=== PATIENT | female | born 1965 | race Caucasian/White ===

== ENCOUNTER 2019-02-04 13:22 | Emergency (ER) | payer OTHER ==
[~2019-02-04] VITALS: Ht 170.2 cm; Wt 119.3 kg
--- OUTSIDE RECORDS SUMMARY | 2019-02-04 13:25 | XMS REPORT | Continuity of Care Document ---
Author Author [facility] Interface Address Unknown Phone Unavailable Problems Problem Status Onset Date Classification Date Reported Comments Source PORT FLUSH, NO DOSAGE, NO JCODE /// CPT: Active 10/24/2018 [facility] Malignant neoplasm of endometrium 06/28/2018 01/09/2019 [facility],[id number] Encounter for antineoplastic chemotherapy 05/02/2018 11/12/2018 [facility] PACLITAXEL 350MG, CARBOPLATIN 745MG /// Active 04/26/2018 [facility] PORTACATH PLACEMENT/ENDOMTTRIAL CANCER Active 01/18/2018 [facility] 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 Hyperlipidemia Resolved Problem 01/20/2019 [facility],[id number] Hypertension Resolved Problem 01/20/2019 [facility],[id number] Uterine cancer Resolved Problem 01/20/2019 [facility],[id number] DM type 2, uncontrolled, with ketoacidosis(<span [id number]">Confirmed</span>) Resolved Problem 01/20/2019 [facility],[id number] Fatty liver, not elsewhere classified 01/09/2019 [id number] Hepatomegaly, not elsewhere classified 01/09/2019 [id number] Incisional hernia without obstruction or gangrene 01/09/2019 [id number] Medications Medication Details Route Status Patient Instructions Ordering Provider Order Date Source heparin flush 500 unit, 5 mL, Route: IV, Drug form: SOLN, ONCALL, Start date: 12/19/18 13:00:00 CDT, Duration: 8 hr, Stop date: 12/19/18 20:59:00 CDTNotes: (Same as: Heparin Lock Flush) No Longer Active 12/19/2018 [facility] heparin flush 500 unit, 5 mL, Route: IV, Drug form: SOLN, ONCALL, Start date: 06/01/18 10:00:00 CDT, Duration: 10 hr, Stop date: 06/01/18 19:59:00 CDTNotes: (Same as: Heparin Lock Flush) Inactive 06/01/2018 [facility] magnesium sulfate 2 gm, 50 mL, Route: IVPB, Drug form: INJ, ONCALL, Start date: 06/01/18 10:00:00 CDT, Duration: 10 hr, Stop date: 06/01/18 19:59:00 CDTNotes: WASTE: F/P - Sink; E - Municipal Trash Bin Inactive 06/01/2018 [facility] famotidine 20 mg, 2 mL, Route: IVP, Drug form: INJ, ONCALL, Start date: 06/01/18 8:00:00 CDT, Duration: 10 hr, Stop date: 06/01/18 17:59:00 CDTNotes: (Same as: Pepcid) Can be dilute in 5-10cc NS IVP: Slow IV push over at least 2 minutes. Inactive 06/01/2018 [facility] PACLitaxel + Sodium Chloride 0.9% IV 445 mL 330 mg, 55.01 mL, Route: IV, Drug form: INJ, ONCALL, Start date: 06/01/18 8:00:00 CDT, Duration: 10 hr, Stop date: 06/01/18 17:59:00 CDTNotes: Non-Formulary Drug Use non-PVC bag and tubing set for administration. Administer with a 0.22 micron in-line filter. CHEMOTHERAPY; Infuse entire contents for full dose WASTE: F/P - Black; E - Yellow (Same as: Taxol) Inactive 06/01/2018 [facility] Benadryl 50 mg, 1 mL, Route: IVP, Drug form: INJ, ONCALL, Start date: 06/01/18 8:00:00 CDT, Duration: 10 hr, Stop date: 06/01/18 17:59:00 CDTNotes: (Same as: Benadryl) Inactive 06/01/2018 [facility] Sodium Chloride 0.9% IV 250 mL, IV, 30 ml/hr, ONCALL, Start date: 06/01/18 8:00:00 CDT, Duration: 10, 250 ml Inactive 06/01/2018 [facility] dexamethasone + Sodium Chloride 0.9% IV 45 mL 20 mg, 5 mL, Route: IVPB, Drug form: INJ, ONCALL, Start date: 06/01/18 8:00:00 CDT, Duration: 10 hr, Stop date: 06/01/18 17:59:00 CDT Inactive 06/01/2018 [facility] CARBOplatin + Sodium Chloride 0.9% IV 175 mL 750 mg, 75 mL, Route: IVPB, Drug form: INJ, ONCALL, Start date: 06/01/18 8:00:00 CDT, Duration: 10 hr, Stop date: 06/01/18 17:59:00 CDTNotes: (Same As: Paraplatin) WASTE: F/P - Black; E - Yellow CHEMOTHERAPY; Infuse entire contents for full dose Inactive 06/01/2018 [facility] Zofran 8 mg, 4 mL, Route: IVP, Drug form: INJ, ONCALL, Start date: 06/01/18 8:00:00 CDT, Duration: 10 hr, Stop date: 06/01/18 17:59:00 CDTNotes: (Same as: Zofran) MEDICATION WASTE Product Size: 4 mg Product Wasted: ___ mg Inactive 06/01/2018 [facility] Neulasta 6 mg, 0.6 mL, Route: SUB-Q, Drug form: INJ, ONCALL, Start date: 05/12/18 13:00:00 CDT, Duration: 1 day, Stop date: 05/13/18 12:59:00 CDTNotes: (Same as: Neulasta) Restricted to Outpatient No Longer Active 05/12/2018 [facility] heparin flush 500 unit, 5 mL, Route: IV, Drug form: SOLN, ONCALL, Start date: 05/11/18 12:00:00 CDT, Duration: 10 hr, Stop date: 05/11/18 21:59:00 CDTNotes: (Same as: Heparin Lock Flush) Inactive 05/11/2018 [facility] magnesium sulfate 2 gm, 50 mL, Route: IVPB, Drug form: INJ, ONCALL, Start date: 05/11/18 8:00:00 CDT, Duration: 10 hr, Stop date: 05/11/18 17:59:00 CDTNotes: WASTE: F/P - Sink; E - Municipal Trash Bin Inactive 05/11/2018 [facility] Sodium Chloride 0.9% IV 250 mL, IV, 30 ml/hr, ONCALL, Start date: 05/11/18 8:00:00 CDT, Duration: 10, 250 ml Inactive 05/11/2018 [facility] famotidine 20 mg, 2 mL, Route: IVP, Drug form: INJ, ONCALL, Start date: 05/11/18 8:00:00 CDT, Duration: 10 hr, Stop date: 05/11/18 17:59:00 CDTNotes: (Same as: Pepcid) Can be dilute in 5-10cc NS IVP: Slow IV push over at least 2 minutes. Inactive 05/11/2018 [facility] Benadryl 50 mg, 1 mL, Route: IVP, Drug form: INJ, ONCALL, Start date: 05/11/18 8:00:00 CDT, Duration: 10 hr, Stop date: 05/11/18 17:59:00 CDTNotes: (Same as: Benadryl) Inactive 05/11/2018 [facility] PACLitaxel + Sodium Chloride 0.9% IV 445 mL 330 mg, 55.01 mL, Route: IV, Drug form: INJ, ONCALL, Start date: 05/11/18 8:00:00 CDT, Duration: 10 hr, Stop date: 05/11/18 17:59:00 CDTNotes: Non-Formulary Drug Use non-PVC bag and tubing set for administration. Administer with a 0.22 micron in-line filter. CHEMOTHERAPY; Infuse entire contents for full dose WASTE: F/P - Black; E - Yellow (Same as: Taxol) Inactive 05/11/2018 [facility] Zofran 8 mg, 4 mL, Route: IVP, Drug form: INJ, ONCALL, Start date: 05/11/18 8:00:00 CDT, Duration: 1 day, Stop date: 05/12/18 7:59:00 CDTNotes: (Same as: Zofran) MEDICATION WASTE Product Size: 4 mg Product Wasted: ___ mg Inactive 05/11/2018 [facility] dexamethasone + Sodium Chloride 0.9% IV 45 mL 20 mg, 5 mL, Route: IVPB, Drug form: INJ, ONCALL, Start date: 05/11/18 8:00:00 CDT, Duration: 10 hr, Stop date: 05/11/18 17:59:00 CDT Inactive 05/11/2018 [facility] CARBOplatin + Sodium Chloride 0.9% IV 180 mL 700 mg, 70 mL, Route: IVPB, Drug form: INJ, ONCALL, Start date: 05/11/18 8:00:00 CDT, Duration: 10 hr, Stop date: 05/11/18 17:59:00 CDTNotes: WASTE: F/P - Black; E - Yellow CHEMOTHERAPY. DO NOT use needle or aluminium parts. (Same As: Paraplatin). Infuse entire contents for full dose Inactive 05/11/2018 [facility] Neulasta 6 mg, 0.6 mL, Route: SUB-Q, Drug form: INJ, ONCALL, Start date: 04/21/18 13:00:00 CDT, Duration: 7 day, Stop date: 04/28/18 12:59:00 CDTNotes: (Same as: Neulasta) Restricted to Outpatient No Longer Active 04/21/2018 [facility] famotidine 20 mg, 2 mL, Route: IVP, Drug form: INJ, ONCALL, Start date: 04/20/18 9:00:00 CDT, Duration: 10 hr, Stop date: 04/20/18 18:59:00 CDTNotes: (Same as: Pepcid) Can be dilute in 5-10cc NS IVP: Slow IV push over at least 2 minutes. Inactive 04/20/2018 [facility] Benadryl 50 mg, 1 mL, Route: IVP, Drug form: INJ, ONCALL, Start date: 04/20/18 9:00:00 CDT, Duration: 10 hr, Stop date: 04/20/18 18:59:00 CDTNotes: (Same as: Benadryl) Inactive 04/20/2018 [facility] dexamethasone + Sodium Chloride 0.9% IV 45 mL 20 mg, 5 mL, Route: IVPB, Drug form: INJ, ONCALL, Start date: 04/20/18 9:00:00 CDT, Duration: 10 hr, Stop date: 04/20/18 18:59:00 CDT Inactive 04/20/2018 [facility] heparin flush 500 unit, 5 mL, Route: IV, Drug form: SOLN, ONCALL, Start date: 04/20/18 9:00:00 CDT, Duration: 10 hr, Stop date: 04/20/18 18:59:00 CDTNotes: (Same as: Heparin Lock Flush) No Longer Active 04/20/2018 [facility] CARBOplatin + Sodium Chloride 0.9% IV 175 mL 750 mg, 75 mL, Route: IVPB, Drug form: INJ, ONCALL, Start date: 04/20/18 9:00:00 CDT, Duration: 10 hr, Stop date: 04/20/18 18:59:00 CDTNotes: WASTE: F/P - Black; E - Yellow CHEMOTHERAPY. DO NOT use needle or aluminium parts. (Same As: Paraplatin). Infuse entire contents for full dose Inactive 04/20/2018 [facility] PACLitaxel + Sodium Chloride 0.9% IV 445 mL 330 mg, 55.01 mL, Route: IV, Drug form: INJ, ONCALL, Start date: 04/20/18 9:00:00 CDT, Duration: 10 hr, Stop date: 04/20/18 18:59:00 CDTNotes: Non-Formulary Drug Use non-PVC bag and tubing set for administration. Administer with a 0.22 micron in-line filter. CHEMOTHERAPY; Infuse entire contents for full dose WASTE: F/P - Black; E - Yellow (Same as: Taxol) Inactive 04/20/2018 [facility] magnesium sulfate 2 gm, 50 mL, Route: IVPB, Drug form: INJ, ONCALL, Start date: 04/20/18 9:00:00 CDT, Duration: 10 hr, Stop date: 04/20/18 18:59:00 CDTNotes: WASTE: F/P - Sink; E - Municipal Trash Bin Inactive 04/20/2018 [facility] Zofran + Sodium Chloride 0.9% IV 46 mL 8 mg, 4 mL, Route: IVPB, Drug form: INJ, ONCALL, Start date: 04/20/18 9:00:00 CDT, Duration: 10 hr, Stop date: 04/20/18 18:59:00 CDTNotes: (Same as: Zofran) Inactive 04/20/2018 [facility] Sodium Chloride 0.9% IV 250 mL, IV, 30 ml/hr, ONCALL, Start date: 04/20/18 9:00:00 CDT, Duration: 10, 250 ml Inactive 04/20/2018 [facility] Neulasta 6 mg, 0.6 mL, Route: SUB-Q, Drug form: INJ, ONCALL, Start date: 03/30/18 8:00:00 CDT, Duration: 7 day, Stop date: 04/06/18 7:59:00 CDTNotes: (Same as: Neulasta) Restricted to Outpatient Inactive 03/30/2018 [facility] dexamethasone + Sodium Chloride 0.9% IV 45 mL 20 mg, 5 mL, Route: IVPB, Drug form: INJ, ONCALL, Start date: 03/29/18 8:00:00 CDT, Duration: 10 hr, Stop date: 03/29/18 17:59:00 CDT Inactive 03/29/2018 [facility] heparin flush 500 unit, 5 mL, Route: IV, Drug form: SOLN, ONCALL, Start date: 03/29/18 8:00:00 CDT, Duration: 10 hr, Stop date: 03/29/18 17:59:00 CDTNotes: (Same as: Heparin Lock Flush) Inactive 03/29/2018 [facility] PACLitaxel + Sodium Chloride 0.9% IV 441.65 mL 350 mg, 58.35 mL, Route: IV, Drug form: SOLN, ONCALL, Start date: 03/29/18 8:00:00 CDT, Duration: 10 hr, Stop date: 03/29/18 17:59:00 CDT Inactive 03/29/2018 [facility] CARBOplatin + Sodium Chloride 0.9% IV 175 mL 750 mg, 75 mL, Route: IVPB, Drug form: INJ, ONCALL, Start date: 03/29/18 8:00:00 CDT, Duration: 10 hr, Stop date: 03/29/18 17:59:00 CDTNotes: WASTE: F/P - Black; E - Yellow CHEMOTHERAPY. DO NOT use needle or aluminium parts. (Same As: Paraplatin). Infuse entire contents for full dose Inactive 03/29/2018 [facility] Sodium Chloride 0.9% IV 250 mL, IV, 30 ml/hr, ONCALL, Start date: 03/29/18 8:00:00 CDT, Duration: 10, 250 ml Inactive 03/29/2018 [facility] Zofran + Sodium Chloride 0.9% IV 46 mL 8 mg, 4 mL, Route: IVPB, Drug form: INJ, ONCALL, Start date: 03/29/18 8:00:00 CDT, Duration: 10 hr, Stop date: 03/29/18 17:59:00 CDTNotes: (Same as: Zofran) Inactive 03/29/2018 [facility] famotidine 20 mg, 2 mL, Route: IVP, Drug form: INJ, ONCALL, Start date: 03/29/18 8:00:00 CDT, Duration: 10 hr, Stop date: 03/29/18 17:59:00 CDTNotes: (Same as: Pepcid) Can be dilute in 5-10cc NS IVP: Slow IV push over at least 2 minutes. Inactive 03/29/2018 [facility] Benadryl 50 mg, 1 mL, Route: IVP, Drug form: INJ, ONCALL, Start date: 03/29/18 8:00:00 CDT, Duration: 10 hr, Stop date: 03/29/18 17:59:00 CDTNotes: (Same as: Benadryl) Inactive 03/29/2018 [facility] heparin flush 500 unit, 5 mL, Route: IV, Drug form: SOLN, ONCALL, Start date: 03/10/18 10:00:00 CDT, Duration: 10 hr, Stop date: 03/10/18 19:59:00 CDTNotes: (Same as: Heparin Lock Flush) Inactive 03/10/2018 [facility] Zofran + Sodium Chloride 0.9% IV 46 mL 8 mg, 4 mL, Route: IVPB, Drug form: INJ, ONCALL, Start date: 03/10/18 9:00:00 CDT, Duration: 10 hr, Stop date: 03/10/18 18:59:00 CDTNotes: (Same as: Zofran) Inactive 03/10/2018 [facility] famotidine 20 mg, 2 mL, Route: IVP, Drug form: INJ, ONCALL, Start date: 03/10/18 9:00:00 CDT, Duration: 10 hr, Stop date: 03/10/18 18:59:00 CDTNotes: (Same as: Pepcid) Can be dilute in 5-10cc NS IVP: Slow IV push over at least 2 minutes. Inactive 03/10/2018 [facility] CARBOplatin + Sodium Chloride 0.9% IV 175 mL 750 mg, 75 mL, Route: IVPB, Drug form: INJ, ONCALL, Start date: 03/10/18 9:00:00 CDT, Duration: 10 hr, Stop date: 03/10/18 18:59:00 CDTNotes: WASTE: F/P - Black; E - Yellow CHEMOTHERAPY. DO NOT use needle or aluminium parts. (Same As: Paraplatin). Infuse entire contents for full dose Inactive 03/10/2018 [facility] Benadryl 50 mg, 1 mL, Route: IVP, Drug form: INJ, ONCALL, Start date: 03/10/18 9:00:00 CDT, Duration: 10 hr, Stop date: 03/10/18 18:59:00 CDTNotes: (Same as: Benadryl) Inactive 03/10/2018 [facility] Sodium Chloride 0.9% IV 250 mL, IV, 30 ml/hr, ONCALL, Start date: 03/10/18 9:00:00 CDT, Duration: 10, 250 ml Inactive 03/10/2018 [facility] dexamethasone + Sodium Chloride 0.9% IV 45 mL 20 mg, 5 mL, Route: IVPB, Drug form: INJ, ONCALL, Start date: 03/10/18 9:00:00 CDT, Duration: 10 hr, Stop date: 03/10/18 18:59:00 CDT Inactive 03/10/2018 [facility] PACLitaxel + Sodium Chloride 0.9% IV 445 mL 330 mg, Route: IV, Drug form: INJ, ONCALL, Start date: 03/10/18 9:00:00 CDT, Duration: 10 hr, Stop date: 03/10/18 18:59:00 CDTNotes: Non-Formulary Drug Use non-PVC bag and tubing set for administration. Administer with a 0.22 micron in-line filter. CHEMOTHERAPY; Infuse entire contents for full dose WASTE: F/P - Black; E - Yellow (Same as: Taxol) Inactive 03/10/2018 [facility] dexamethasone + Sodium Chloride 0.9% IV 50 mL 20 mg, 5 mL, Route: IVPB, Drug form: INJ, ONCALL, Start date: 02/16/18 8:00:00 CDT, Duration: 10 hr, Stop date: 02/16/18 17:59:00 CDT Inactive 02/16/2018 [facility] heparin flush 500 unit, 5 mL, Route: IV, Drug form: SOLN, ONCALL, Start date: 02/16/18 8:00:00 CDT, Duration: 10 hr, Stop date: 02/16/18 17:59:00 CDTNotes: (Same as: Heparin Lock Flush) Inactive 02/16/2018 [facility] Sodium Chloride 0.9% IV 250 mL, IV, 30 ml/hr, ONCALL, Start date: 02/16/18 8:00:00 CDT, Duration: 10, 250 ml Inactive 02/16/2018 [facility] Zofran + Sodium Chloride 0.9% IV 50 mL 8 mg, 4 mL, Route: IVPB, ONCALL, Start date: 02/16/18 8:00:00 CDT, Duration: 10 hr, Stop date: 02/16/18 17:59:00 CDTNotes: (Same as: Zofran) MEDICATION WASTE Product Size: 4 mg Product Wasted: ___ mg Inactive 02/16/2018 [facility] famotidine 20 mg, 2 mL, Route: IVP, Drug form: INJ, ONCALL, Start date: 02/16/18 8:00:00 CDT, Duration: 10 hr, Stop date: 02/16/18 17:59:00 CDTNotes: (Same as: Pepcid) Can be dilute in 5-10cc NS IVP: Slow IV push over at least 2 minutes. Inactive 02/16/2018 [facility] Benadryl 50 mg, 1 mL, Route: IVP, Drug form: INJ, ONCALL, Start date: 02/16/18 8:00:00 CDT, Duration: 10 hr, Stop date: 02/16/18 17:59:00 CDTNotes: (Same as: Benadryl) Inactive 02/16/2018 [facility] CARBOplatin + Sodium Chloride 0.9% IV 250 mL 670 mg, 67 mL, Route: IV, Drug form: INJ, ONCALL, Start date: 02/16/18 8:00:00 CDT, Duration: 10 hr, Stop date: 02/16/18 17:59:00 CDTNotes: WASTE: F/P - Black; E - Yellow CHEMOTHERAPY. DO NOT use needle or aluminium parts. (Same As: Paraplatin). Infuse entire contents for full dose Inactive 02/16/2018 [facility] PACLitaxel + Sodium Chloride 0.9% IV 500 mL 390 mg, 65.01 mL, Route: IV, Drug form: INJ, ONCALL, Start date: 02/16/18 8:00:00 CDT, Duration: 10 hr, Stop date: 02/16/18 17:59:00 CDTNotes: Non-Formulary Drug Use non-PVC bag and tubing set for administration. Administer with a 0.22 micron in-line filter. CHEMOTHERAPY; Infuse entire contents for full dose WASTE: F/P - Black; E - Yellow (Same as: Taxol) Inactive 02/16/2018 [facility] celecoxib 200 mg oral capsule 200 mg=1 cap, PO, Q12H, # 40 cap, 0 Refill(s), Pharmacy: [facility] [id number] Active 01/08/[address] [facility] acetaminophen 500 mg oral tablet 1,000 mg=2 tab, PO, Q6H, # 60 tab, 0 Refill(s), Pharmacy: [facility] [id number] Active 01/08/[address] [facility] tramadol hydrochloride 50 MG Oral Tablet 100 mg=2 tab, PO, Q6Hnow, # 50 tab, 0 Refill(s) Active 01/08/[address] [facility] ondansetron 4 mg oral tablet 4 mg=1 tab, PO, Q8H, # 10 tab, 0 Refill(s), Pharmacy: [facility] [id number] Active 01/08/[address] [facility] gabapentin 300 MG Oral Capsule 300 mg=1 cap, PO, Q8H, # 60 cap, 0 Refill(s), Pharmacy: [facility] [id number] Active 01/08/[address] [facility] Docusate Sodium 50 MG / sennosides, SENIOR LIVING 8.6 MG Oral Tablet 2 tab, PO, Q12H, # 60 tab, 2 Refill(s), Pharmacy: [facility] [id number] Active 01/08/[address] [facility] Tramadol 100 mg, 2 tab, Route: PO, Drug form: TAB, Q6Hnow, Dosing Weight 111.818, kg, Start date: 01/07/18 7:00:00 CDT, Duration: 30 day, Stop date: 02/06/18 1:00:00 CDTNotes: Not to exceed 400mg/day. (Same As: Ultram) No Longer Active 01/07/[address] [facility] Oxycodone Hydrochloride 5 MG Oral Tablet 5 mg, 1 tab, Route: PO, Drug form: TAB, Q4H, Dosing Weight 111.818, kg, PRN Pain Score 4-6, Start date: 01/07/18 6:26:00 CDT, Duration: 30 day, Stop date: 02/06/18 6:25:00 CDTNotes: (Same as: Roxicodone) No Longer Active 01/07/[address] [facility] remove patch 1 patch, Route: TOP, Drug form: ERFILM, ONCE, Start date: 01/06/18 11:44:00 CDT, Stop date: 01/06/18 11:44:00 CDTNotes: Remove old patch before application of new patch. Inactive 01/06/[address] [facility] simvastatin 10 mg oral tablet 10 mg=1 tab, PO, Bedtime, 0 Refill(s) Active 01/06/[address] [facility] MAGNESIUM GLUCONATE 500 mg, 1 tab, Route: PO, Drug form: TAB, BID, Dosing Weight 111.818, kg, Start date: 01/06/18 9:00:00 CDT, Duration: 30 day, Stop date: 02/04/18 17:00:00 CDTNotes: (Same as: Almora) Magnesium gluconate 500mg=27mg elemental magnesium Dose= mg magnesium gluconate(___mg elemental magnesium) No Longer Active 01/06/[address] [facility] NIFEdipine 30 mg oral tablet, extended release 30 mg, 1 tab, Route: PO, Drug form: ERTAB, Daily, Dosing Weight 111.818, kg, Start date: 01/06/18 9:00:00 CDT, Duration: 30 day, Stop date: 02/04/18 9:00:00 CDTNotes: (Same as: Adalat CC, Procardia XL) Give on empty stomach. Take 1 hour before or 2 hours after meal; "Avoid grapefruit and grapefruit juice". Do not crush No Longer Active 01/06/[address] [facility] Insulin Lispro 4 unit, 0.04 mL, Route: SUB-Q, Drug form: SOLN, Bedtime, Dosing Weight 111.818, kg, PRN Blood Glucose Results, Start date: 01/06/18 3:06:00 CDT, Duration: 30 day, Stop date: 02/05/18 3:05:00 CDTNotes: (Same as: Humalog ) Roll in palms of hands gently; Do not shake `vigorously. "Single Patient Use Only " WASTE: F/P - Black; E - Municipal Trash Bin Stable for 28 days at room temperature. Expires in days from Date No Longer Active 01/06/[address] [facility] Insulin Lispro 10 unit, 0.1 mL, Route: SUB-Q, Drug form: SOLN, TID-Before Meals, Dosing Weight 111.818, kg, PRN Blood Glucose Results, Start date: 01/06/18 3:05:00 CDT, Duration: 30 day, Stop date: 02/05/18 3:04:00 CDTNotes: (Same as: Humalog ) Roll in palms of hands gently; Do not shake `vigorously. "Single Patient Use Only " WASTE: F/P - Black; E - Municipal Trash Bin Stable for 28 days at room temperature. Expires in days from Date No Longer Active 01/06/[address] [facility] Glucagon 1 mg, Route: IM, Drug form: PDR/INJ, PRN, Dosing Weight 111.818, kg, PRN Blood Glucose Results, Start date: 01/06/18 3:05:00 CDT, Duration: 30 day, Stop date: 02/05/18 3:04:00 CDT No Longer Active 01/06/[address] [facility] Dextrose 50% Syringe 25 gm, 50 mL, Route: IVP, Drug Form: INJ, Dosing Weight 111.818, kg, PRN, PRN Blood Glucose Results, Start date: 01/06/18 3:05:00 CDT, Duration: 30 day, Stop date: 02/05/18 3:04:00 CDT No Longer Active 01/06/[address] [facility] Zofran 4 mg, 1 tab, Route: PO, Drug form: TAB, Q8H, Dosing Weight 111.818, kg, Start date: 01/06/18 0:00:00 CDT, Duration: 30 day, Stop date: 02/04/18 16:00:00 CDTNotes: (Same as: Zofran) No Longer Active 01/06/[address] [facility] Docusate Sodium 50 MG / sennosides, [facility]ING 8.6 MG Oral Tablet 2 tab, Route: PO, Drug Form: TAB, Dosing Weight 111.818, kg, Q12H, Start date: 01/05/18 23:15:00 CDT, Duration: 30 day, Stop date: 02/04/18 21:00:00 CDTNotes: (Same as Senokot-S) Equiv. to Madai-Colace. No Longer Active 01/06/[address] [facility] gabapentin 300 mg, 1 cap, Route: PO, Drug form: CAP, Q8H, Dosing Weight 111.818, kg, Start date: 01/05/18 23:14:00 CDT, Duration: 30 day, Stop date: 02/04/18 16:00:00 CDTNotes: (Same as: Neurontin) No Longer Active 01/06/[address] [facility] celecoxib 200 mg, 1 cap, Route: PO, Drug form: CAP, Q12H, Dosing Weight 111.818, kg, Start date: 01/05/18 23:14:00 CDT, Duration: 30 day, Stop date: 02/04/18 21:00:00 CDTNotes: NSAID. Please check indication. Not for seizure. (Same As: CeleBREX) No Longer Active 01/06/[address] [facility] Acetaminophen 1,000 mg, 2 tab, Route: PO, Drug form: TAB, Q6H, Dosing Weight 111.818, kg, Start date: 01/05/18 23:13:00 CDT, Duration: 30 day, Stop date: 02/04/18 18:00:00 CDTNotes: Max acetaminophen 4000 mg/day (4 gm/day). (Same as: Tylenol Extra Strength) No Longer Active 01/06/[address] [facility] Ondansetron 4 mg, Route: IVP, ONCE, Dosing Weight 111.818, kg, PRN Nausea & Vomiting, Start date: 01/05/18 21:07:00 CDT Inactive 01/06/[address] [facility] Flumazenil 0.2 mg, Route: IVP, PRN, Dosing Weight 111.818, kg, PRN Benzodiazepine Reversal, Initial dose, Start date: 01/05/18 21:07:00 CDT, Duration: 30 day, Stop date: 02/04/18 21:06:00 CDT Inactive 01/06/[address] [facility] Naloxone 0.4 mg, Route: IVP, Q2MIN, Dosing Weight 111.818, kg, PRN Narcotic Reversal, Start date: 01/05/18 21:07:00 CDT, Duration: 8 doses or times, Stop date: Limited # of times Inactive 01/06/[address] [facility] Acetaminophen 1,000 mg, Route: IVPB, Drug form: INJ, ONCE, Dosing Weight 111.818, kg, PRN Pain Score 1-3, Start date: 01/05/18 21:07:00 CDT Inactive 01/06/[address] [facility] Oxycodone 5 mg, Route: PO, Drug form: TAB, Q4H, Dosing Weight 111.818, kg, PRN Pain Score 4-6, Start date: 01/05/18 21:07:00 CDT, Duration: 30 day, Stop date: 02/04/18 21:06:00 CDT Inactive 01/06/[address] [facility] Hydromorphone 0.5 mg, Route: IVP, Q5Min, Dosing Weight 111.818, kg, PRN Pain Score 7-10, Start date: 01/05/18 21:07:00 CDT, Duration: 4 doses or times, Stop date: Limited # of times Inactive 01/06/[address] 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 midazolam (ANES) Route: IV, Drug form: SOLN, ONCE, Stop date: 01/05/18 20:34:00 CDT Inactive 01/06/[address] [facility] Simethicone 160 mg, 2 tab, Route: CHEW, Drug form: CHEWTAB, QID, Dosing Weight 111.818, kg, PRN Gas, Start date: 01/05/18 20:11:00 CDT, Duration: 30 day, Stop date: 02/04/18 20:10:00 CDTNotes: (Same as: Mylicon) No Longer Active 01/06/[address] [facility] Reglan 10 mg, 1 tab, Route: PO, Drug form: TAB, Q6H, Dosing Weight 111.818, kg, PRN Nausea, Start date: 01/05/18 20:11:00 CDT, Duration: 30 day, Stop date: 02/04/18 20:10:00 CDTNotes: (Same as: Reglan) Take 30 min before meals No Longer Active 01/06/[address] [facility] Zofran 4 mg, 1 tab, Route: PO, Drug form: TAB, Q6H, Dosing Weight 111.818, kg, PRN Nausea, Start date: 01/05/18 20:11:00 CDT, Duration: 30 day, Stop date: 02/04/18 20:10:00 CDTNotes: (Same as: Zofran) Inactive 01/06/[address] [facility] neostigmine (ANES) Route: IV, Drug form: INJ, ONCE, Stop date: 01/05/18 20:04:00 CDT Inactive 01/06/[address] [facility] glycopyrrolate (ANES) Route: IV, Drug form: INJ, ONCE, Stop date: 01/05/18 20:04:00 CDT Inactive 01/06/[address] [facility] Calcium Chloride 0.0014 MEQ/ML / Potassium Chloride 0.004 MEQ/ML / Sodium Chloride 0.103 MEQ/ML / Sodium Lactate 0.028 MEQ/ML Injectable Solution 1,000 mL, Rate: 100 ml/hr, Infuse over: 10 hr, Route: IV, Dosing Weight 111.818 kg, Total Volume: 1,000, Start date: 01/05/18 20:01:00 CDT, Duration: 30 day, Stop date: 02/04/18 20:00:00 CDT, 2.35, m2 No Longer Active 01/06/[address] [facility] ePHEDrine (ANES) Route: IV, Drug form: INJ, ONCE, Stop date: 01/05/18 19:39:00 CDT Inactive 01/06/[address] [facility] propofol (ANES) Route: IV, Drug form: INJ, ONCE, Stop date: 01/05/18 18:39:00 CDT Inactive 01/05/[address] [facility] ceFAZolin (ANES) Route: IV, Drug form: INJ, ONCE, Stop date: 01/05/18 18:29:00 CDT Inactive 01/05/[address] [facility] acetaminophen (ANES) Route: IV, Drug form: INJ, ONCE, Stop date: 01/05/18 18:29:00 CDT Inactive 01/05/[address] [facility] ondansetron (ANES) Route: IV, Drug form: INJ, ONCE, Stop date: 01/05/18 18:29:00 CDT Inactive 01/05/[address] [facility] dexamethasone (ANES) Route: IV, Drug form: INJ, ONCE, Stop date: 01/05/18 17:49:00 CDT Inactive 01/05/[address] [facility] bupivacaine (ANES) Route: EPIDURAL, Drug Form: INJ, ONCE, Stop date: 01/05/18 17:14:00 CDT Inactive 01/05/[address] [facility] rocuronium (ANES) Route: IV, Drug form: INJ, ONCE, Stop date: 01/05/18 17:09:00 CDT Inactive 01/05/[address] [facility] fentaNYL (ANES) Route: IV, Drug form: INJ, ONCE, Stop date: 01/05/18 16:54:00 CDT Inactive 01/05/[address] [facility] bupivacaine (ANES) Route: EPIDURAL, Drug Form: INJ, ONCE, Stop date: 01/05/18 16:54:00 CDT Inactive 01/05/[address] [facility] Sodium Chloride 0.9% IV (ANES) 1000 mL Route: IV, Total Volume: 1,000, Start date: 01/05/18 16:30:00 CDT, Stop date: 01/05/18 17:30:00 CDT Inactive 01/05/[address] [facility] ketAMINE (ANES) Route: IV, Drug form: INJ, ONCE, Stop date: 01/05/18 16:11:00 CDT Inactive 01/05/[address] [facility] metroNIDAZOLE (ANES) Route: IV, Drug form: INJ, ONCE, Stop date: 01/05/18 16:01:00 CDT Inactive 01/05/[address] [facility] ceFAZolin (ANES) Route: IV, Drug form: INJ, ONCE, Stop date: 01/05/18 15:56:00 CDT Inactive 01/05/[address] [facility] propofol (ANES) Route: IV, Drug form: INJ, ONCE, Stop date: 01/05/18 15:41:00 CDT Inactive 01/05/[address] [facility] lidocaine (ANES) Route: IV, Drug form: INJ, ONCE, Stop date: 01/05/18 15:41:00 CDT Inactive 01/05/[address] [facility] rocuronium (ANES) Route: IV, Drug form: INJ, ONCE, Stop date: 01/05/18 15:41:00 CDT Inactive 01/05/[address] [facility] fentaNYL (ANES) Route: IV, Drug form: INJ, ONCE, Stop date: 01/05/18 15:41:00 CDT Inactive 01/05/[address] [facility] midazolam (ANES) Route: IV, Drug form: SOLN, ONCE, Stop date: 01/05/18 15:41:00 CDT Inactive 01/05/[address] [facility] dexmedetomidine (ANES) 200 microgram Route: IV, Drug form: INJ, Start date: 01/05/18 15:40:00 CDT, Stop date: 01/05/18 16:40:00 CDT Inactive 01/05/[address] [facility] Lactated Ringers Injection IV (ANES) 1000 mL Route: IV, Total Volume: 1,000, Start date: 01/05/18 15:40:00 CDT, Stop date: 01/05/18 16:40:00 CDT Inactive 01/05/[address] [facility] ketAMINE (ANES) 10 mg Route: IV, Drug form: INJ, Start date: 01/05/18 15:40:00 CDT, Stop date: 01/05/18 16:40:00 CDT Inactive 01/05/[address] [facility] Naloxone 0.1 mg, 0.25 mL, Route: IVP, Drug form: INJ, Q2MIN, Dosing Weight 111.818, kg, PRN Narcotic Reversal, Start date: 01/05/18 15:36:00 CDT, Duration: 8 doses or times, Stop date: 02/04/18 0:00:00 CDTNotes: Same as Narcan No Longer Active 01/05/[address] [facility] Fentanyl / ropivacaine Route: EPIDURAL, Continuous Rate: 8, ml/hr, Infusion site: Thoracic, TENSIONING MACHINE OPERATOR dose 3 mL, TENSIONING MACHINE OPERATOR dose lockout: 30 minutes, 1 Hour limit: 14 mL, 200, mL, Start date: 01/05/18 15:36:00 CDT, Duration: 30, day, Drug Form: INJ, Total volume: 200, mL, kg, Stop date:...Notes: (Same as Naropin-Sublimaze) No Longer Active 01/05/[address] [facility] Tramadol 100 mg, 2 tab, Route: PO, Drug form: TAB, Q6Hnow, Dosing Weight 111.818, kg, PRN Pain Score 7-10, Start date: 01/05/18 15:34:00 CDT, Duration: 30 day, Stop date: 02/04/18 15:33:00 CDTNotes: Not to exceed 400mg/day. (Same As: Ultram) No Longer Active 01/05/[address] [facility] Lactated Ringers Injection IV (ANES) 1000 mL Route: IV, Total Volume: 1,000, Start date: 01/05/18 15:04:00 CDT, Stop date: 01/05/18 16:04:00 CDT Inactive 01/05/[address] [facility] heparin 5,000 unit, 1 mL, Route: SUB-Q, Drug form: INJ, ONCE, kg, Start date: 01/05/18 5:00:00 CDT, Stop date: 01/05/18 5:00:00 CDTNotes: porcine heparin Inactive 01/05/[address] [facility] 72 HR Scopolamine 0.0139 MG/HR Transdermal Patch 1 patch, Route: TOP, Drug Form: ERFILM, kg, PRE OP, Start date: 01/05/18 5:00:00 CDT, Duration: 30 day, Stop date: 02/04/18 4:59:00 CDTNotes: Change patch every 72 hours (Same as: Transderm-Scop) Inactive 01/05/[address] [facility] Celebrex 400 mg, 2 cap, Route: PO, Drug form: CAP, ONCE, kg, Start date: 01/05/18 5:00:00 CDT, Stop date: 01/05/18 5:00:00 CDTNotes: NSAID. Please check indication. Not for seizure. (Same As: CeleBREX) Inactive 01/05/[address] [facility] gabapentin 300 MG Oral Capsule 300 mg, 1 cap, Route: PO, Drug form: CAP, ONCE, kg, Start date: 01/05/18 5:00:00 CDT, Stop date: 01/05/18 5:00:00 CDTNotes: (Same as: Neurontin) Inactive 01/05/[address] [facility] Simvastatin 10 mg, PO, Bedtime No Longer Active 01/03/[address] [facility] Aleve 220 mg, PO, PRN Active 01/03/[address] [facility] Vitamin C 500 mg, PO, BID Active 01/03/[address] [facility] ferrous sulfate 65 mg, PO, BID Active 01/03/[address] [facility] NIFEdipine 30 mg oral tablet, extended release 30 mg=1 tab, PO, Daily Active 01/03/[address] [facility] Allergies, Adverse Reactions, Alerts Substance Category Reaction Severity Reaction type Status Date Reported Comments Source No Known Medication Allergies Assertion Drug allergy [facility] Immunizations Immunization Date Given Site Status Last Updated Comments Source Results Order Name Results Value Reference Range Date Interpretation Comments Source Breast Mammo [facility] [place] [facility] incl CAD [place] Breast Mammo [facility] [place] [facility] incl CAD MA AMENDMENT: 01/12/2019 Ashlee Austin M.D. The purpose of this addendum is to document that prior mammogram has now been compared. The 8 mm nodule in the upper outer left breast, 13 cmfn and the 9 mm asymmetry in the lower left breast, 10 cmfn are stable when compared to prior exam dated 10/12/2017 Mammogram - [facility] Amended BI-RADS: 2 Benign letter sent: BI-RADS 1/2 BILATERAL DIGITAL SCREENING MAMMOGRAM 3D/2D WITH CAD: 12/28/2018 CLINICAL: /Z12.31 Encounter For Screening Mammogram For Malignant Neoplasm Of Breast. Current study was evaluated with a Computer Aided Detection (CAD) system. COMPARISON:No prior exams were available for comparison. TECHNIQUE: Digital Breast Tomosynthesis was performed and utilized for Interpretation. Current study was also evaluated with a Computer Aided Detection (CAD) system. FINDINGS: There are scattered fibroglandular densities in both breasts. There is an 8 mm nodule in the upper outer left breast, 13 cmfn, possibly an intramammary lymph node. There is an additional 9 mm asymmetry in the lower left breast, 10 cmfn. No significant masses, calcifications, or other findings are seen in the right breast. IMPRESSION: INCOMPLETE: NEEDS ADDITIONAL IMAGING EVALUATION 1. An 8 mm nodule in the upper outer left breast, 13 cmfn, possibly an intramammary lymph node. 2. A 9 mm asymmetry in the lower left breast, 10 cmfn. Diagnostic left mammogram and ultrasound is recommended. Diagnostic views to include LM comboHD. RECOMMENDATION: - DIAGNOSTIC LEFT MAMMOGRAM AND POSSIBLE ULTRASOUND. Please note, prior outside facility mammograms were requested but not received. Comparison to prior mammograms would increase the sensitivity of this mammogram and if received, an addendum will be issued. This exam was interpreted at [id number] for [facility]. Ashlee Austin M.D. dh/:01/08/2019 12:19:34 Triage Technician(s): Angelica Orellana [facility] letter sent: BI-RADS 0 Mammogram BI-RADS: 0 Indeterminate 12/28/2018 - - Read by: Ashlee Austin MD Dictated Date/time: 01/12/19 11:38 Electronically Signed by: Ashlee Austin MD 01/12/19 11:38 FINAL REPORT - - Read by: Ashlee Austin MD Dictated Date/time: 01/08/19 12:19 Electronically Signed by: Ashlee Austin MD 01/08/19 12:19 FINAL REPORT [facility] TUMOR MARKERS CA 125 4.5 unit/mL 0.0 - 35.0 12/20/2018 [facility] TUMOR MARKERS CA 125 2.2 unit/mL 0.0 - 35.0 09/20/2018 [facility] Chest/Abdomen/Pelvis w IV contrast CT Chest/Abdomen/Pelvis w IV contrast CT CT THORAX/ABDOMEN/PELVIS WITH IV CONTRAST HISTORY: C54.1 Malignant neoplasm of endometrium; 52-year-old female reports history of diagnosis of endometrial malignancy in October 2017 TECHNIQUE: Multiple contiguous axial images of the chest and abdomen and pelvis were performed. Coronal and sagittal reformatted images were obtained. IV CONTRAST: 100cc Omnipaque. GI CONTRAST: Yes. CT imaging performed at this location utilizes radiation dose optimization techniques which include one or more of the following: -Automated exposure control -Adjustment of the mA and/or kV according to patient size -Use of iterative reconstruction technique CT Radiation Dose DLP 1319.6 mGy-cm COMPARISON: CT thorax/abdomen/pelvis dated 01/04/2018 CHEST: LUNGS AND PLEURA: The lungs are clear. No evidence of pulmonary metastatic disease. No pleural effusion. No pneumothorax. MEDIASTINUM: A right IJ central catheter has been placed since the prior study in satisfactory positioning. No mediastinal mass, adenopathy, or fluid collection. Heart size normal. No pericardial effusion. BASE OF NECK, SOFT TISSUES AND BONES: There is an unchanged 0.4 cm nodule in the right thyroid gland for which no follow-up is recommended. No supraclavicular or axillary lymphadenopathy. No evidence of osseous metastatic disease in the chest. ABDOMEN AND PELVIS: LIVER, BILIARY, PANCREAS, SPLEEN, AND ADRENALS: Hepatomegaly and hepatic steatosis are again noted. No focal liver lesion. No calcified gallstones. No biliary dilation. Normal spleen. Normal pancreas. Normal adrenal glands. GENITOURINARY: Normal kidneys. No hydronephrosis. Since the prior study, hysterectomy has been performed. The large complex cystic mass of the right adnexa has been resected. STOMACH AND BOWEL AND APPENDIX: The stomach and duodenum are normal. Normal small bowel. No small bowel obstruction. Normal rectum. Normal colon. Normal appendix. OTHER SOFT TISSUES, VESSELS, AND BONES: There is a small supraumbilical incisional hernia which is new since the prior study and contains a short loop of abnormal-appearing small bowel. This hernia measures 2.5 cm transverse, 3 cm craniocaudad, and 1 cm AP and demonstrates a wide neck. There is trace fluid within the laparotomy incision within the infraumbilical midline pannus, likely a small expected postoperative seroma. No ascites or lymphadenopathy. No CT evidence of osseous metastatic disease in the abdomen or pelvis. Bilateral chronic L5 pars defects are noted (spondylolysis). Mild right iliopsoas bursitis is noted, similar to the prior. IMPRESSION: 1. Changes of hysterectomy and resection of the large complex cystic mass of the right adnexa since the prior study. 2. No evidence of metastatic disease in the chest, abdomen, or pelvis. 3. Development of small supraumbilical incisional hernia which contains a short loop of normal-appearing small bowel. 4. Trace fluid within the laparotomy incision within the infraumbilical pannus, likely small expected postoperative seroma. 5. Hepatomegaly, hepatic steatosis, L5 spondylolysis. SL: [id number] 06/22/2018 - - Read by: Drew Cabello MD Dictated Date/time: 06/22/18 15:09 Electronically Signed by: Drew Cabello MD 06/22/18 15:32 FINAL REPORT [facility] CHEM PANEL Magnesium Lvl 1.8 mg/dL 1.8 - 2.4 05/30/2018 [facility] CHEM PANEL A/G Ratio 1.3 0.7 - 1.6 05/30/2018 [facility] CHEM PANEL Globulin 3.2 g/dL 2.7 - 4.2 05/30/2018 [facility] CHEM PANEL B/C Ratio 22 6 - 25 05/30/2018 [facility] CHEM PANEL AGAP 19.0 meq/L 10.0 - 20.0 05/30/2018 [facility] CHEM PANEL eGFR 103 mL/min/1.73m2 05/30/2018 Result Comment: The eGFR is calculated using the CKD-EPI formula. In most young, healthy individuals the eGFR will be >90 mL/min/1.73m2. The eGFR declines with age. An eGFR of 60-89 may be normal in some populations, particularly the elderly, for whom the CKD-EPI formula has not been extensively validated. Use of the eGFR is not recommended in the following populations: Individuals with unstable creatinine concentrations, including patients and those with serious co-morbid conditions. Patients with extremes in muscle mass or diet. The data above are obtained from the National Kidney Disease Education Program (NKDEP) which additionally recommends that when the eGFR is used in patients with extremes of body mass index for purposes of drug dosing, the eGFR should be multiplied by the estimated BMI. [facility] CHEM PANEL Bili Total 0.4 mg/dL 0.2 - 1.3 05/30/2018 [facility] CHEM PANEL Alk Phos 71 unit/L 39 - 136 05/30/2018 [facility] CHEM PANEL AST 41 unit/L 0 - 37 05/30/2018 [facility] CHEM PANEL Albumin Lvl 4.1 g/dL 3.5 - 5.0 05/30/2018 [facility] CHEM PANEL Calcium Lvl 9.5 mg/dL 8.5 - 10.5 05/30/2018 [facility] CHEM PANEL ALT 74 unit/L 0 - 65 05/30/2018 [facility] CHEM PANEL Total Protein 7.3 g/dL 6.4 - 8.4 05/30/2018 [facility] CHEM PANEL CO2 23 meq/L 24 - 32 05/30/2018 [facility] CHEM PANEL Chloride Lvl 105 meq/L 95 - 109 05/30/2018 [facility] CHEM PANEL Potassium Lvl 4.0 meq/L 3.5 - 5.1 05/30/2018 [facility] CHEM PANEL Sodium Lvl 143 meq/L 135 - 145 05/30/2018 [facility] CHEM PANEL Creatinine Lvl 0.67 mg/dL 0.50 - 1.40 05/30/2018 [facility] CHEM PANEL BUN 15 mg/dL 7 - 22 05/30/2018 [facility] CHEM PANEL Glucose Lvl 101 mg/dL 70 - 99 05/30/2018 [facility] HEMATOLOGY RDW 21.2 % 11.5 - 14.5 05/30/2018 [facility] HEMATOLOGY Platelet 257 K/CMM 133 - 450 05/30/2018 [facility] HEMATOLOGY MPV 8.1 fL 7.4 - 10.4 05/30/2018 [facility] MCHC 33.7 g/dL 32.0 - 36.0 05/30/2018 [facility] HEMATOLOGY RBC 4.27 M/CMM 4.20 - 5.40 05/30/2018 [facility] HEMATOLOGY WBC 3.3 K/CMM 3.7 - 10.4 05/30/2018 [facility] Hct 37.4 % 36.0 - 48.0 05/30/2018 [facility] MCV 87.6 fL 80.0 - 98.0 05/30/2018 [facility] MCH 29.6 pg 27.0 - 31.0 05/30/2018 [facility] Hgb 12.6 g/dL 12.0 - 16.0 05/30/2018 [facility] HEMATOLOGY Monocytes # 0.3 K/CMM 0.0 - 0.8 05/30/2018 [facility] HEMATOLOGY Lymphocytes # 1.0 K/CMM 1.0 - 5.5 05/30/2018 [facility] HEMATOLOGY Basophils 0.7 % 0.0 - 1.0 05/30/2018 [facility] HEMATOLOGY Neutrophils # 1.9 K/CMM 1.5 - 8.1 05/30/2018 [facility] HEMATOLOGY Eosinophils 0.8 % 0.0 - 4.0 05/30/2018 [facility] HEMATOLOGY Monocytes 9.8 % 2.0 - 12.0 05/30/2018 [facility] HEMATOLOGY Lymphocytes 30.0 % 20.0 - 40.0 05/30/2018 [facility] HEMATOLOGY Segs 58.7 % 45.0 - 75.0 05/30/2018 [facility] TUMOR MARKERS CA 125 2.8 unit/mL 0.0 - 35.0 05/30/2018 [facility] CHEM PANEL Magnesium Lvl 1.7 mg/dL 1.8 - 2.4 05/09/2018 [facility] CHEM PANEL eGFR 103 mL/min/1.73m2 05/09/2018 Result Comment: The eGFR is calculated using the CKD-EPI formula. In most young, healthy individuals the eGFR will be >90 mL/min/1.73m2. The eGFR declines with age. An eGFR of 60-89 may be normal in some populations, particularly the elderly, for whom the CKD-EPI formula has not been extensively validated. Use of the eGFR is not recommended in the following populations: Individuals with unstable creatinine concentrations, including patients and those with serious co-morbid conditions. Patients with extremes in muscle mass or diet. The data above are obtained from the National Kidney Disease Education Program (NKDEP) which additionally recommends that when the eGFR is used in patients with extremes of body mass index for purposes of drug dosing, the eGFR should be multiplied by the estimated BMI. [facility] CHEM PANEL Total Protein 7.1 g/dL 6.4 - 8.4 05/09/2018 [facility] CHEM PANEL Calcium Lvl 8.8 mg/dL 8.5 - 10.5 05/09/2018 [facility] CHEM PANEL Albumin Lvl 3.9 g/dL 3.5 - 5.0 05/09/2018 [facility] CHEM PANEL ALT 62 unit/L 0 - 65 05/09/2018 [facility] CHEM PANEL Alk Phos 53 unit/L 39 - 136 05/09/2018 [facility] CHEM PANEL AST 39 unit/L 0 - 37 05/09/2018 [facility] CHEM PANEL Bili Total 0.3 mg/dL 0.2 - 1.3 05/09/2018 [facility] CHEM PANEL CO2 27 meq/L 24 - 32 05/09/2018 [facility] CHEM PANEL Sodium Lvl 143 meq/L 135 - 145 05/09/2018 [facility] CHEM PANEL Potassium Lvl 3.9 meq/L 3.5 - 5.1 05/09/2018 [facility] CHEM PANEL Chloride Lvl 105 meq/L 95 - 109 05/09/2018 [facility] CHEM PANEL Glucose Lvl 100 mg/dL 70 - 99 05/09/2018 [facility] CHEM PANEL Creatinine Lvl 0.67 mg/dL 0.50 - 1.40 05/09/2018 [facility] CHEM PANEL BUN 13 mg/dL 7 - 22 05/09/2018 [facility] CHEM PANEL A/G Ratio 1.2 0.7 - 1.6 05/09/2018 [facility] CHEM PANEL Globulin 3.2 g/dL 2.7 - 4.2 05/09/2018 [facility] CHEM PANEL B/C Ratio 19 6 - 25 05/09/2018 [facility] CHEM PANEL AGAP 14.9 meq/L 10.0 - 20.0 05/09/2018 [facility] Lymphocytes # 1.1 K/CMM 1.0 - 5.5 05/09/2018 [facility] Neutrophils # 1.6 K/CMM 1.5 - 8.1 05/09/2018 [facility] Basophils 0.6 % 0.0 - 1.0 05/09/2018 [facility] Segs 53.1 % 45.0 - 75.0 05/09/2018 [facility] Eosinophils 1.1 % 0.0 - 4.0 05/09/2018 [facility] Monocytes 11.2 % 2.0 - 12.0 05/09/2018 [facility] Lymphocytes 34.0 % 20.0 - 40.0 05/09/2018 [facility] Monocytes # 0.3 K/CMM 0.0 - 0.8 05/09/2018 [facility] Anisocyte 1+ *ABN* (05/09/18 10:02 AM) None Seen 05/09/2018 [facility] Plt Morph Normal (05/09/18 10:02 AM) 05/09/2018 [facility] RBC 4.49 M/CMM 4.20 - 5.40 05/09/2018 [facility] WBC 3.1 K/CMM 3.7 - 10.4 05/09/2018 [facility] MCHC 33.9 g/dL 32.0 - 36.0 05/09/2018 [facility] MCV 84.5 fL 80.0 - 98.0 05/09/2018 [facility] MCH 28.7 pg 27.0 - 31.0 05/09/2018 [facility] MPV 7.6 fL 7.4 - 10.4 05/09/2018 [facility] RDW 22.6 % 11.5 - 14.5 05/09/2018 [facility] Hgb 12.9 g/dL 12.0 - 16.0 05/09/2018 [facility] Hct 37.9 % 36.0 - 48.0 05/09/2018 [facility] Platelet 159 K/CMM 133 - 450 05/09/2018 [facility] TUMOR MARKERS CA 125 3.2 unit/mL 0.0 - 35.0 05/09/2018 [facility] CHEM PANEL Magnesium Lvl 1.7 mg/dL 1.8 - 2.4 04/18/2018 [facility] CHEM PANEL eGFR 106 mL/min/1.73m2 04/18/2018 Result Comment: The eGFR is calculated using the CKD-EPI formula. In most young, healthy individuals the eGFR will be >90 mL/min/1.73m2. The eGFR declines with age. An eGFR of 60-89 may be normal in some populations, particularly the elderly, for whom the CKD-EPI formula has not been extensively validated. Use of the eGFR is not recommended in the following populations: Individuals with unstable creatinine concentrations, including patients and those with serious co-morbid conditions. Patients with extremes in muscle mass or diet. The data above are obtained from the National Kidney Disease Education Program (NKDEP) which additionally recommends that when the eGFR is used in patients with extremes of body mass index for purposes of drug dosing, the eGFR should be multiplied by the estimated BMI. [facility] CHEM PANEL Albumin Lvl 3.8 g/dL 3.5 - 5.0 04/18/2018 [facility] CHEM PANEL AST 28 unit/L 0 - 37 04/18/2018 [facility] CHEM PANEL Total Protein 6.7 g/dL 6.4 - 8.4 04/18/2018 [facility] CHEM PANEL ALT 54 unit/L 0 - 65 04/18/2018 [facility] CHEM PANEL Alk Phos 74 unit/L 39 - 136 04/18/2018 [facility] CHEM PANEL Calcium Lvl 9.0 mg/dL 8.5 - 10.5 04/18/2018 [facility] CHEM PANEL CO2 25 meq/L 24 - 32 04/18/2018 [facility] CHEM PANEL Bili Total 0.2 mg/dL 0.2 - 1.3 04/18/2018 [facility] CHEM PANEL Creatinine Lvl 0.61 mg/dL 0.50 - 1.40 04/18/2018 [facility] CHEM PANEL BUN 14 mg/dL 7 - 22 04/18/2018 [facility] CHEM PANEL Sodium Lvl 143 meq/L 135 - 145 04/18/2018 [facility] CHEM PANEL Potassium Lvl 4.2 meq/L 3.5 - 5.1 04/18/2018 [facility] CHEM PANEL Chloride Lvl 107 meq/L 95 - 109 04/18/2018 [facility] CHEM PANEL Glucose Lvl 107 mg/dL 70 - 99 04/18/2018 [facility] CHEM PANEL A/G Ratio 1.3 0.7 - 1.6 04/18/2018 [facility] CHEM PANEL B/C Ratio 23 6 - 25 04/18/2018 [facility] CHEM PANEL AGAP 15.2 meq/L 10.0 - 20.0 04/18/2018 [facility] CHEM PANEL Globulin 2.9 g/dL 2.7 - 4.2 04/18/2018 [facility] HEMATOLOGY MPV 7.8 fL 7.4 - 10.4 04/18/2018 [facility] HEMATOLOGY Platelet 266 K/CMM 133 - 450 04/18/2018 [facility] HEMATOLOGY RDW 21.9 % 11.5 - 14.5 04/18/2018 [facility] Hct 34.0 % 36.0 - 48.0 04/18/2018 [facility] Hgb 11.4 g/dL 12.0 - 16.0 04/18/2018 [facility] RBC 4.13 M/CMM 4.20 - 5.40 04/18/2018 [facility] WBC 4.4 K/CMM 3.7 - 10.4 04/18/2018 [facility] MCV 82.3 fL 80.0 - 98.0 04/18/2018 [facility] MCHC 33.4 g/dL 32.0 - 36.0 04/18/2018 [facility] MCH 27.5 pg 27.0 - 31.0 04/18/2018 [facility] Neutrophils # 3.0 K/CMM 1.5 - 8.1 04/18/2018 [facility] Lymphocytes # 1.0 K/CMM 1.0 - 5.5 04/18/2018 [facility] Monocytes # 0.4 K/CMM 0.0 - 0.8 04/18/2018 [facility] HEMATOLOGY Basophils 0.5 % 0.0 - 1.0 04/18/2018 [facility] HEMATOLOGY Eosinophils 0.4 % 0.0 - 4.0 04/18/2018 [facility] HEMATOLOGY Monocytes 8.5 % 2.0 - 12.0 04/18/2018 [facility] HEMATOLOGY Segs 68.6 % 45.0 - 75.0 04/18/2018 [facility] Lymphocytes 22.0 % 20.0 - 40.0 04/18/2018 [facility] TUMOR MARKERS CA 125 3.4 unit/mL 0.0 - 35.0 04/18/2018 [facility] CHEM PANEL Magnesium Lvl 2.0 mg/dL 1.8 - 2.4 03/27/2018 [facility] CHEM PANEL B/C Ratio 16 6 - 25 03/27/2018 [facility] CHEM PANEL Globulin 2.8 g/dL 2.7 - 4.2 03/27/2018 [facility] CHEM PANEL A/G Ratio 1.4 0.7 - 1.6 03/27/2018 [facility] CHEM PANEL eGFR 102 mL/min/1.73m2 03/27/2018 Result Comment: The eGFR is calculated using the CKD-EPI formula. In most young, healthy individuals the eGFR will be >90 mL/min/1.73m2. The eGFR declines with age. An eGFR of 60-89 may be normal in some populations, particularly the elderly, for whom the CKD-EPI formula has not been extensively validated. Use of the eGFR is not recommended in the following populations: Individuals with unstable creatinine concentrations, including patients and those with serious co-morbid conditions. Patients with extremes in muscle mass or diet. The data above are obtained from the National Kidney Disease Education Program (NKDEP) which additionally recommends that when the eGFR is used in patients with extremes of body mass index for purposes of drug dosing, the eGFR should be multiplied by the estimated BMI. [facility] CHEM PANEL ALT 49 unit/L 0 - 65 03/27/2018 [facility] CHEM PANEL AST 23 unit/L 0 - 37 03/27/2018 [facility] CHEM PANEL Alk Phos 56 unit/L 39 - 136 03/27/2018 [facility] CHEM PANEL AGAP 12.3 meq/L 10.0 - 20.0 03/27/2018 [facility] CHEM PANEL Albumin Lvl 3.9 g/dL 3.5 - 5.0 03/27/2018 [facility] CHEM PANEL Bili Total 0.2 mg/dL 0.2 - 1.3 03/27/2018 [facility] CHEM PANEL Glucose Lvl 102 mg/dL 70 - 99 03/27/2018 [facility] CHEM PANEL BUN 11 mg/dL 7 - 22 03/27/2018 [facility] CHEM PANEL CO2 28 meq/L 24 - 32 03/27/2018 [facility] CHEM PANEL Calcium Lvl 9.2 mg/dL 8.5 - 10.5 03/27/2018 [facility] CHEM PANEL Total Protein 6.7 g/dL 6.4 - 8.4 03/27/2018 [facility] CHEM PANEL Creatinine Lvl 0.68 mg/dL 0.50 - 1.40 03/27/2018 [facility] CHEM PANEL Sodium Lvl 143 meq/L 135 - 145 03/27/2018 [facility] CHEM PANEL Potassium Lvl 4.3 meq/L 3.5 - 5.1 03/27/2018 [facility] CHEM PANEL Chloride Lvl 107 meq/L 95 - 109 03/27/2018 [facility] HEMATOLOGY Segs 46.8 % 45.0 - 75.0 03/27/2018 [facility] HEMATOLOGY Neutrophils # 1.3 K/CMM 1.5 - 8.1 03/27/2018 [facility] HEMATOLOGY Monocytes 13.4 % 2.0 - 12.0 03/27/2018 [facility] HEMATOLOGY Eosinophils 1.3 % 0.0 - 4.0 03/27/2018 [facility] HEMATOLOGY Basophils 0.6 % 0.0 - 1.0 03/27/2018 [facility] HEMATOLOGY Lymphocytes 37.9 % 20.0 - 40.0 03/27/2018 [facility] HEMATOLOGY Lymphocytes # 1.0 K/CMM 1.0 - 5.5 03/27/2018 [facility] HEMATOLOGY Monocytes # 0.4 K/CMM 0.0 - 0.8 03/27/2018 [facility] HEMATOLOGY MPV 7.4 fL 7.4 - 10.4 03/27/2018 [facility] HEMATOLOGY Platelet 256 K/CMM 133 - 450 03/27/2018 [facility] HEMATOLOGY MCV 80.5 fL 80.0 - 98.0 03/27/2018 [facility] HEMATOLOGY Hgb 11.6 g/dL 12.0 - 16.0 03/27/2018 [facility] HEMATOLOGY Hct 35.5 % 36.0 - 48.0 03/27/2018 [facility] HEMATOLOGY RDW 19.8 % 11.5 - 14.5 03/27/2018 [facility] HEMATOLOGY MCH 26.4 pg 27.0 - 31.0 03/27/2018 [facility] MCHC 32.8 g/dL 32.0 - 36.0 03/27/2018 [facility] HEMATOLOGY RBC 4.41 M/CMM 4.20 - 5.40 03/27/2018 [facility] HEMATOLOGY WBC 2.8 K/CMM 3.7 - 10.4 03/27/2018 [facility] TUMOR MARKERS CA 125 3.8 unit/mL 0.0 - 35.0 03/27/2018 [facility] CHEM PANEL Magnesium Lvl 2.1 mg/dL 1.8 - 2.4 03/07/2018 [facility] ELECTROLYTES AGAP 12.3 meq/L 10.0 - 20.0 03/07/2018 [facility] ELECTROLYTES B/C Ratio 18 6 - 25 03/07/2018 [facility] ELECTROLYTES Globulin 3.2 g/dL 2.7 - 4.2 03/07/2018 [facility] ELECTROLYTES A/G Ratio 1.2 0.7 - 1.6 03/07/2018 [facility] ELECTROLYTES eGFR 102 mL/min/1.73m2 03/07/2018 Result Comment: The eGFR is calculated using the CKD-EPI formula. In most young, healthy individuals the eGFR will be >90 mL/min/1.73m2. The eGFR declines with age. An eGFR of 60-89 may be normal in some populations, particularly the elderly, for whom the CKD-EPI formula has not been extensively validated. Use of the eGFR is not recommended in the following populations: Individuals with unstable creatinine concentrations, including patients and those with serious co-morbid conditions. Patients with extremes in muscle mass or diet. The data above are obtained from the National Kidney Disease Education Program (NKDEP) which additionally recommends that when the eGFR is used in patients with extremes of body mass index for purposes of drug dosing, the eGFR should be multiplied by the estimated BMI. [facility] ELECTROLYTES Chloride Lvl 105 meq/L 95 - 109 03/07/2018 [facility] ELECTROLYTES Potassium Lvl 4.3 meq/L 3.5 - 5.1 03/07/2018 [facility] ELECTROLYTES Calcium Lvl 9.5 mg/dL 8.5 - 10.5 03/07/2018 [facility] ELECTROLYTES CO2 28 meq/L 24 - 32 03/07/2018 [facility] ELECTROLYTES Total Protein 7.2 g/dL 6.4 - 8.4 03/07/2018 [facility] ELECTROLYTES Bili Total 0.2 mg/dL 0.2 - 1.3 03/07/2018 [facility] ELECTROLYTES Albumin Lvl 4.0 g/dL 3.5 - 5.0 03/07/2018 [facility] ELECTROLYTES AST 22 unit/L 0 - 37 03/07/2018 [facility] ELECTROLYTES ALT 37 unit/L 0 - 65 03/07/2018 [facility] ELECTROLYTES Alk Phos 60 unit/L 39 - 136 03/07/2018 [facility] ELECTROLYTES Glucose Lvl 110 mg/dL 70 - 99 03/07/2018 [facility] ELECTROLYTES BUN 12 mg/dL 7 - 22 03/07/2018 [facility] ELECTROLYTES Creatinine Lvl 0.68 mg/dL 0.50 - 1.40 03/07/2018 [facility] ELECTROLYTES Sodium Lvl 141 meq/L 135 - 145 03/07/2018 [facility] HEMATOLOGY Lymphocytes 34.0 % 20.0 - 40.0 03/07/2018 [facility] HEMATOLOGY Eosinophils 0.9 % 0.0 - 4.0 03/07/2018 [facility] HEMATOLOGY Basophils 0.8 % 0.0 - 1.0 03/07/2018 [facility] HEMATOLOGY Monocytes 10.7 % 2.0 - 12.0 03/07/2018 [facility] HEMATOLOGY Segs-Bands # 1.9 K/CMM 1.5 - 8.1 03/07/2018 [facility] HEMATOLOGY Monocytes # 0.4 K/CMM 0.0 - 0.8 03/07/2018 [facility] Lymphocytes # 1.2 K/CMM 1.0 - 5.5 03/07/2018 [facility] Segs 53.6 % 45.0 - 75.0 03/07/2018 [facility] Hgb 12.3 g/dL 12.0 - 16.0 03/07/2018 [facility] MCV 79.1 fL 80.0 - 98.0 03/07/2018 [facility] Hct 37.6 % 36.0 - 48.0 03/07/2018 [facility] MCH 25.9 pg 27.0 - 31.0 03/07/2018 [facility] MCHC 32.7 g/dL 32.0 - 36.0 03/07/2018 [facility] RDW 17.6 % 11.5 - 14.5 03/07/2018 [facility] Platelet 241 K/CMM 133 - 450 03/07/2018 [facility] MPV 8.0 fL 7.4 - 10.4 03/07/2018 [facility] HEMATOLOGY WBC 3.6 K/CMM 3.7 - 10.4 03/07/2018 [facility] RBC 4.75 M/CMM 4.20 - 5.40 03/07/2018 [facility] TUMOR MARKERS CA 125 2.7 unit/mL 0.0 - 35.0 03/07/2018 [facility] CHEM PANEL Magnesium Lvl 1.9 mg/dL 1.8 - 2.4 02/14/2018 [facility] CHEM PANEL eGFR 87 mL/min/1.73m2 02/14/2018 Result Comment: The eGFR is calculated using the CKD-EPI formula. In most young, healthy individuals the eGFR will be >90 mL/min/1.73m2. The eGFR declines with age. An eGFR of 60-89 may be normal in some populations, particularly the elderly, for whom the CKD-EPI formula has not been extensively validated. Use of the eGFR is not recommended in the following populations: Individuals with unstable creatinine concentrations, including patients and those with serious co-morbid conditions. Patients with extremes in muscle mass or diet. The data above are obtained from the National Kidney Disease Education Program (NKDEP) which additionally recommends that when the eGFR is used in patients with extremes of body mass index for purposes of drug dosing, the eGFR should be multiplied by the estimated BMI. [facility] CHEM PANEL Alk Phos 64 unit/L 39 - 136 02/14/2018 [facility] CHEM PANEL Bili Total 0.3 mg/dL 0.2 - 1.3 02/14/2018 [facility] CHEM PANEL AST 11 unit/L 0 - 37 02/14/2018 [facility] CHEM PANEL Albumin Lvl 3.8 g/dL 3.5 - 5.0 02/14/2018 [facility] CHEM PANEL ALT 19 unit/L 0 - 65 02/14/2018 [facility] CHEM PANEL Total Protein 7.1 g/dL 6.4 - 8.4 02/14/2018 [facility] CHEM PANEL Chloride Lvl 105 meq/L 95 - 109 02/14/2018 [facility] CHEM PANEL CO2 27 meq/L 24 - 32 02/14/2018 [facility] CHEM PANEL Calcium Lvl 9.1 mg/dL 8.5 - 10.5 02/14/2018 [facility] CHEM PANEL Potassium Lvl 4.0 meq/L 3.5 - 5.1 02/14/2018 [facility] CHEM PANEL Sodium Lvl 143 meq/L 135 - 145 02/14/2018 [facility] CHEM PANEL Creatinine Lvl 0.80 mg/dL 0.50 - 1.40 02/14/2018 [facility] CHEM PANEL BUN 14 mg/dL 7 - 22 02/14/2018 [facility] CHEM PANEL Glucose Lvl 175 mg/dL 70 - 99 02/14/2018 [facility] CHEM PANEL AGAP 15.0 meq/L 10.0 - 20.0 02/14/2018 [facility] CHEM PANEL B/C Ratio 18 6 - 25 02/14/2018 [facility] CHEM PANEL Globulin 3.3 g/dL 2.7 - 4.2 02/14/2018 [facility] CHEM PANEL A/G Ratio 1.2 0.7 - 1.6 02/14/2018 [facility] HEMATOLOGY Eosinophils # 0.1 K/CMM 0.0 - 0.5 02/14/2018 [facility] HEMATOLOGY Segs 70.2 % 45.0 - 75.0 02/14/2018 [facility] HEMATOLOGY Monocytes 4.7 % 2.0 - 12.0 02/14/2018 [facility] HEMATOLOGY Lymphocytes # 1.1 K/CMM 1.0 - 5.5 02/14/2018 [facility] HEMATOLOGY Monocytes # 0.2 K/CMM 0.0 - 0.8 02/14/2018 [facility] HEMATOLOGY Eosinophils 2.3 % 0.0 - 4.0 02/14/2018 [facility] HEMATOLOGY Lymphocytes 21.9 % 20.0 - 40.0 02/14/2018 [facility] HEMATOLOGY Basophils 0.9 % 0.0 - 1.0 02/14/2018 [facility] Segs-Bands # 3.6 K/CMM 1.5 - 8.1 02/14/2018 [facility] RDW 16.5 % 11.5 - 14.5 02/14/2018 [facility] Platelet 239 K/CMM 133 - 450 02/14/2018 [facility] MPV 8.6 fL 7.4 - 10.4 02/14/2018 [facility] WBC 5.1 K/CMM 3.7 - 10.4 02/14/2018 [facility] MCH 25.7 pg 27.0 - 31.0 02/14/2018 [facility] MCHC 32.4 g/dL 32.0 - 36.0 02/14/2018 [facility] Hgb 11.6 g/dL 12.0 - 16.0 02/14/2018 [facility] RBC 4.50 M/CMM 4.20 - 5.40 02/14/2018 [facility] Hct 35.7 % 36.0 - 48.0 02/14/2018 [facility] MCV 79.4 fL 80.0 - 98.0 02/14/2018 [facility] TUMOR MARKERS CA 125 5.6 unit/mL 0.0 - 35.0 02/14/2018 [facility] CHEM PANEL ALT 12 unit/L 0 - 65 01/08/[address] [facility] CHEM PANEL A/G Ratio 0.7 0.7 - 1.6 01/08/[address] [facility] CHEM PANEL Bili Total 0.3 mg/dL 0.2 - 1.3 01/08/[address] [facility] CHEM PANEL Alk Phos 49 unit/L 39 - 136 01/08/[address] [facility] CHEM PANEL eGFR 107 mL/min/1.73m2 01/08/2018 Result Comment: The eGFR is calculated using the CKD-EPI formula. In most young, healthy individuals the eGFR will be >90 mL/min/1.73m2. The eGFR declines with age. An eGFR of 60-89 may be normal in some populations, particularly the elderly, for whom the CKD-EPI formula has not been extensively validated. Use of the eGFR is not recommended in the following populations: Individuals with unstable creatinine concentrations, including patients and those with serious co-morbid conditions. Patients with extremes in muscle mass or diet. The data above are obtained from the National Kidney Disease Education Program (NKDEP) which additionally recommends that when the eGFR is used in patients with extremes of body mass index for purposes of drug dosing, the eGFR should be multiplied by the estimated BMI. [facility] CHEM PANEL B/C Ratio 17 6 - 25 01/08/[address] [facility] CHEM PANEL Globulin 3.2 g/dL 2.7 - 4.2 01/08/[address] [facility] CHEM PANEL Albumin Lvl 2.2 g/dL 3.5 - 5.0 01/08/[address] [facility] CHEM PANEL Calcium Lvl 7.9 mg/dL 8.5 - 10.5 01/08/[address] [facility] CHEM PANEL AGAP 10.4 meq/L 10.0 - 20.0 01/08/[address] [facility] CHEM PANEL AST 10 unit/L 0 - 37 01/08/[address] [facility] CHEM PANEL Total Protein 5.4 g/dL 6.4 - 8.4 01/08/[address] [facility] CHEM PANEL BUN 10 mg/dL 7 - 22 01/08/[address] [facility] CHEM PANEL Sodium Lvl 141 meq/L 135 - 145 01/08/[address] [facility] CHEM PANEL Potassium Lvl 4.4 meq/L 3.5 - 5.1 01/08/[address] [facility] CHEM PANEL Chloride Lvl 108 meq/L 95 - 109 01/08/[address] [facility] CHEM PANEL CO2 27 meq/L 24 - 32 01/08/[address] [facility] CHEM PANEL Creatinine Lvl 0.59 mg/dL 0.50 - 1.40 01/08/[address] [facility] CHEM PANEL Glucose Lvl 103 mg/dL 70 - 99 01/08/[address] [facility] CHEM PANEL Phosphorus 3.2 mg/dL 2.5 - 4.5 01/08/[address] [facility] CHEM PANEL Magnesium Lvl 2.2 mg/dL 1.8 - 2.4 01/08/[address] [facility] HEMATOLOGY Monocytes # 0.5 K/CMM 0.0 - 0.8 01/08/[address] [facility] HEMATOLOGY Eosinophils # 0.2 K/CMM 0.0 - 0.5 01/08/[address] [facility] HEMATOLOGY Lymphocytes # 1.5 K/CMM 1.0 - 5.5 01/08/[address] [facility] HEMATOLOGY Eosinophils 2.5 % 0.0 - 4.0 01/08/[address] [facility] HEMATOLOGY Monocytes 6.6 % 2.0 - 12.0 01/08/[address] [facility] HEMATOLOGY Segs-Bands # 5.5 K/CMM 1.5 - 8.1 01/08/[address] [facility] HEMATOLOGY Basophils 0.3 % 0.0 - 1.0 01/08/[address] [facility] HEMATOLOGY Lymphocytes 19.5 % 20.0 - 40.0 01/08/[address] [facility] HEMATOLOGY Segs 71.1 % 45.0 - 75.0 01/08/[address] [facility] HEMATOLOGY RBC 3.22 M/CMM 4.20 - 5.40 01/08/[address] [facility] HEMATOLOGY WBC 7.7 K/CMM 3.7 - 10.4 01/08/[address] [facility] HEMATOLOGY Hgb 8.7 g/dL 12.0 - 16.0 01/08/[address] [facility] HEMATOLOGY Platelet 270 K/CMM 133 - 450 01/08/[address] [facility] HEMATOLOGY MPV 7.6 fL 7.4 - 10.4 01/08/[address] [facility] HEMATOLOGY RDW 15.0 % 11.5 - 14.5 01/08/[address] [facility] HEMATOLOGY MCHC 32.5 g/dL 32.0 - 36.0 01/08/[address] [facility] HEMATOLOGY Hct 26.8 % 36.0 - 48.0 01/08/[address] [facility] HEMATOLOGY MCH 27.0 pg 27.0 - 31.0 01/08/[address] [facility] HEMATOLOGY MCV 83.2 fL 80.0 - 98.0 01/08/[address] [facility] BLOOD BANK RESULTS RBC product Product available (01/07/18 3:21 PM) 01/07/[address] [facility] CHEM PANEL Magnesium Lvl 2.1 mg/dL 1.8 - 2.4 01/07/[address] [facility] CHEM PANEL eGFR 77 mL/min/1.73m2 01/07/2018 Result Comment: The eGFR is calculated using the CKD-EPI formula. In most young, healthy individuals the eGFR will be >90 mL/min/1.73m2. The eGFR declines with age. An eGFR of 60-89 may be normal in some populations, particularly the elderly, for whom the CKD-EPI formula has not been extensively validated. Use of the eGFR is not recommended in the following populations: Individuals with unstable creatinine concentrations, including patients and those with serious co-morbid conditions. Patients with extremes in muscle mass or diet. The data above are obtained from the National Kidney Disease Education Program (NKDEP) which additionally recommends that when the eGFR is used in patients with extremes of body mass index for purposes of drug dosing, the eGFR should be multiplied by the estimated BMI. [facility] CHEM PANEL Bili Total 0.1 mg/dL 0.2 - 1.3 01/07/[address] [facility] CHEM PANEL AST 10 unit/L 0 - 37 01/07/[address] [facility] CHEM PANEL Alk Phos 53 unit/L 39 - 136 01/07/[address] [facility] CHEM PANEL ALT 12 unit/L 0 - 65 01/07/[address] [facility] CHEM PANEL Globulin 3.1 g/dL 2.7 - 4.2 01/07/[address] [facility] CHEM PANEL A/G Ratio 0.7 0.7 - 1.6 01/07/[address] [facility] CHEM PANEL Albumin Lvl 2.3 g/dL 3.5 - 5.0 01/07/[address] [facility] CHEM PANEL B/C Ratio 17 6 - 25 01/07/[address] [facility] CHEM PANEL Total Protein 5.4 g/dL 6.4 - 8.4 01/07/[address] [facility] CHEM PANEL Calcium Lvl 8.0 mg/dL 8.5 - 10.5 01/07/[address] [facility] CHEM PANEL CO2 28 meq/L 24 - 32 01/07/[address] [facility] CHEM PANEL AGAP 10.4 meq/L 10.0 - 20.0 01/07/[address] [facility] CHEM PANEL Potassium Lvl 4.4 meq/L 3.5 - 5.1 01/07/[address] [facility] CHEM PANEL Chloride Lvl 107 meq/L 95 - 109 01/07/[address] [facility] CHEM PANEL Sodium Lvl 141 meq/L 135 - 145 01/07/[address] [facility] CHEM PANEL Glucose Lvl 107 mg/dL 70 - 99 01/07/[address] [facility] CHEM PANEL Creatinine Lvl 0.88 mg/dL 0.50 - 1.40 01/07/[address] [facility] CHEM PANEL BUN 15 mg/dL 7 - 22 01/07/[address] [facility] CHEM PANEL Phosphorus 3.1 mg/dL 2.5 - 4.5 01/07/[address] [facility] HEMATOLOGY Eosinophils # 0.1 K/CMM 0.0 - 0.5 01/07/[address] [facility] HEMATOLOGY Monocytes # 0.6 K/CMM 0.0 - 0.8 01/07/[address] [facility] HEMATOLOGY Segs-Bands # 9.2 K/CMM 1.5 - 8.1 01/07/[address] [facility] HEMATOLOGY Lymphocytes # 1.5 K/CMM 1.0 - 5.5 01/07/[address] [facility] HEMATOLOGY Lymphocytes 13.2 % 20.0 - 40.0 01/07/[address] [facility] HEMATOLOGY Monocytes 4.9 % 2.0 - 12.0 01/07/[address] [facility] HEMATOLOGY Segs 81.0 % 45.0 - 75.0 01/07/[address] [facility] HEMATOLOGY Basophils 0.3 % 0.0 - 1.0 01/07/[address] [facility] HEMATOLOGY Eosinophils 0.6 % 0.0 - 4.0 01/07/[address] [facility] HEMATOLOGY MPV 8.0 fL 7.4 - 10.4 01/07/[address] [facility] HEMATOLOGY MCHC 32.0 g/dL 32.0 - 36.0 01/07/[address] [facility] HEMATOLOGY MCH 26.2 pg 27.0 - 31.0 01/07/[address] [facility] HEMATOLOGY Platelet 296 K/CMM 133 - 450 01/07/[address] [facility] HEMATOLOGY MCV 81.7 fL 80.0 - 98.0 01/07/[address] [facility] HEMATOLOGY Hct 21.5 % 36.0 - 48.0 01/07/[address] [facility] HEMATOLOGY WBC 11.3 K/CMM 3.7 - 10.4 01/07/[address] [facility] HEMATOLOGY Hgb 6.9 g/dL 12.0 - 16.0 01/07/2018 Result Comment: Critical Result(s) called to Jonna Cotto at 01/07/2018 06:16 by Leann. Read back OK. [facility] HEMATOLOGY RBC 2.63 M/CMM 4.20 - 5.40 01/07/[address] [facility] HEMATOLOGY RDW 14.9 % 11.5 - 14.5 01/07/[address] [facility] CHEM PANEL eGFR 78 mL/min/1.73m2 01/06/2018 Result Comment: The eGFR is calculated using the CKD-EPI formula. In most young, healthy individuals the eGFR will be >90 mL/min/1.73m2. The eGFR declines with age. An eGFR of 60-89 may be normal in some populations, particularly the elderly, for whom the CKD-EPI formula has not been extensively validated. Use of the eGFR is not recommended in the following populations: Individuals with unstable creatinine concentrations, including patients and those with serious co-morbid conditions. Patients with extremes in muscle mass or diet. The data above are obtained from the National Kidney Disease Education Program (NKDEP) which additionally recommends that when the eGFR is used in patients with extremes of body mass index for purposes of drug dosing, the eGFR should be multiplied by the estimated BMI. [facility] CHEM PANEL A/G Ratio 0.7 0.7 - 1.6 01/06/[address] [facility] CHEM PANEL Total Protein 5.5 g/dL 6.4 - 8.4 01/06/[address] [facility] CHEM PANEL Sodium Lvl 138 meq/L 135 - 145 01/06/[address] [facility] CHEM PANEL Potassium Lvl 4.7 meq/L 3.5 - 5.1 01/06/[address] [facility] CHEM PANEL Calcium Lvl 7.9 mg/dL 8.5 - 10.5 01/06/[address] [facility] CHEM PANEL CO2 25 meq/L 24 - 32 01/06/[address] [facility] CHEM PANEL ALT 12 unit/L 0 - 65 01/06/[address] [facility] CHEM PANEL Albumin Lvl 2.3 g/dL 3.5 - 5.0 01/06/[address] [facility] CHEM PANEL Bili Total 0.2 mg/dL 0.2 - 1.3 01/06/[address] [facility] CHEM PANEL Chloride Lvl 107 meq/L 95 - 109 01/06/[address] [facility] CHEM PANEL AGAP 10.7 meq/L 10.0 - 20.0 01/06/[address] [facility] CHEM PANEL Alk Phos 51 unit/L 39 - 136 01/06/[address] [facility] CHEM PANEL B/C Ratio 16 6 - 25 01/06/[address] [facility] CHEM PANEL AST 8 unit/L 0 - 37 01/06/[address] [facility] CHEM PANEL Globulin 3.2 g/dL 2.7 - 4.2 01/06/[address] [facility] CHEM PANEL Glucose Lvl 173 mg/dL 70 - 99 01/06/[address] [facility] CHEM PANEL Creatinine Lvl 0.87 mg/dL 0.50 - 1.40 01/06/[address] [facility] CHEM PANEL BUN 14 mg/dL 7 - 22 01/06/[address] [facility] CHEM PANEL Phosphorus 4.1 mg/dL 2.5 - 4.5 01/06/[address] [facility] CHEM PANEL Magnesium Lvl 2.0 mg/dL 1.8 - 2.4 01/06/[address] [facility] HEMATOLOGY Segs 92.3 % 45.0 - 75.0 01/06/[address] [facility] HEMATOLOGY Plt Morph Normal (01/06/18 6:16 AM) 01/06/[address] [facility] HEMATOLOGY Monocytes # 0.6 K/CMM 0.0 - 0.8 01/06/[address] [facility] HEMATOLOGY Lymphocytes # 0.6 K/CMM 1.0 - 5.5 01/06/[address] [facility] HEMATOLOGY Segs-Bands # 14.9 K/CMM 1.5 - 8.1 01/06/[address] [facility] HEMATOLOGY Monocytes 3.7 % 2.0 - 12.0 01/06/[address] [facility] HEMATOLOGY Lymphocytes 4.0 % 20.0 - 40.0 01/06/[address] [facility] HEMATOLOGY Polychrom Slight 01/06/[address] [facility] HEMATOLOGY MPV 7.9 fL 7.4 - 10.4 01/06/[address] [facility] HEMATOLOGY Platelet 347 K/CMM 133 - 450 01/06/[address] [facility] HEMATOLOGY MCV 80.5 fL 80.0 - 98.0 01/06/[address] [facility] HEMATOLOGY Hct 26.0 % 36.0 - 48.0 01/06/[address] [facility] HEMATOLOGY RDW 14.4 % 11.5 - 14.5 01/06/[address] [facility] HEMATOLOGY MCHC 33.0 g/dL 32.0 - 36.0 01/06/[address] [facility] HEMATOLOGY MCH 26.6 pg 27.0 - 31.0 01/06/[address] [facility] HEMATOLOGY Hgb 8.6 g/dL 12.0 - 16.0 01/06/[address] [facility] HEMATOLOGY WBC 16.1 K/CMM 3.7 - 10.4 01/06/[address] [facility] HEMATOLOGY RBC 3.22 M/CMM 4.20 - 5.40 01/06/[address] [facility] HEMATOLOGY Eosinophils 0.1 % 0.0 - 4.0 01/06/[address] [facility] HEMATOLOGY Basophils 0.2 % 0.0 - 1.0 01/06/[address] [facility] BLOOD BANK RESULTS Antibody Scrn Negative (01/05/18 11:24 AM) 01/05/[address] [facility] BLOOD BANK RESULTS ABO/Rh O POS 01/05/[address] [facility] Vital Signs Vital Sign Value Date Comments Source Weight 115.909 12/20/2018 [facility] BMI Calculated 38.85 12/20/2018 [facility] Height 172.72 cm 12/20/2018 [facility] Systolic (mm Hg) 116 06/01/2018 [facility] Diastolic (mm Hg) 69 06/01/2018 [facility] Heart Rate 55 06/01/2018 [facility] Systolic (mm Hg) 133 06/01/2018 [facility] Diastolic (mm Hg) 74 06/01/2018 [facility] Temperature Oral (F) 98.3 F 06/01/2018 [facility] Rate 18 06/01/2018 [facility] Heart Rate 65 06/01/2018 [facility] Systolic (mm Hg) 128 06/01/2018 [facility] Diastolic (mm Hg) 86 06/01/2018 [facility] Weight 115.67 06/01/2018 [facility] BMI Calculated 39.65 06/01/2018 [facility] Height 170.8 cm 06/01/2018 [facility] Temperature Oral (F) 98.0 F 05/11/2018 [facility] Respitory Rate 18 05/11/2018 [facility] Heart Rate 73 05/11/2018 [facility] BMI Calculated 36.67 05/11/2018 [facility] Height 176.9 cm 05/11/2018 [facility] Weight 114.76 05/11/2018 [facility] Weight 114.3 05/09/2018 [facility] Height 171 cm 05/09/2018 [facility] BMI Calculated 39.09 05/09/2018 [facility] Systolic (mm Hg) 131 04/20/2018 [facility] Diastolic (mm Hg) 84 04/20/2018 [facility] Respitory Rate 18 04/20/2018 [facility] Heart Rate 74 04/20/2018 [facility] Temperature Oral (F) 98.7 F 04/20/2018 [facility] Systolic (mm Hg) 143 03/29/2018 [facility] Diastolic (mm Hg) 81 03/29/2018 [facility] Respitory Rate 18 03/29/2018 [facility] Temperature Oral (F) 98.4 F 03/29/2018 [facility] Heart Rate 85 03/29/2018 [facility] Weight 113.4 03/28/2018 [facility] BMI Calculated 38.96 03/28/2018 [facility] Height 170.6 cm 03/28/2018 [facility] BMI Calculated 39.1 03/27/2018 [facility] Weight 113 03/27/2018 [facility] Height 170 cm 03/27/2018 [facility] Heart Rate 71 03/10/2018 [facility] Respitory Rate 18 03/10/2018 [facility] Temperature Oral (F) 98.9 F 03/10/2018 [facility] Systolic (mm Hg) 125 03/10/2018 [facility] Diastolic (mm Hg) 80 03/10/2018 [facility] Systolic (mm Hg) 125 03/10/2018 [facility] Diastolic (mm Hg) 80 03/10/2018 [facility] Respitory Rate 18 03/10/2018 [facility] Heart Rate 71 03/10/2018 [facility] Temperature Oral (F) 98.9 F 03/10/2018 [facility] Weight 113 03/08/2018 [facility] BMI Calculated 39.1 03/08/2018 [facility] Height 170 cm 03/08/2018 [facility] Temperature Oral (F) 98.7 F 02/16/2018 [facility] Respitory Rate 18 02/16/2018 [facility] Heart Rate 76 02/16/2018 [facility] Systolic (mm Hg) 129 02/16/2018 [facility] Diastolic (mm Hg) 76 02/16/2018 [facility] Height 170.6 cm 02/15/2018 [facility] Weight 111.13 02/15/2018 [facility] BMI Calculated 38.18 02/15/2018 [facility] Weight 111.4 02/14/2018 [facility] BMI Calculated 38.28 02/14/2018 [facility] Height 170.6 cm 02/14/2018 [facility] BMI Calculated 36.57 01/31/2018 [facility] Height 172.72 cm 01/31/2018 [facility] Weight 109.091 01/31/2018 [facility] Respitory Rate 18 01/08/[address] [facility] Temperature Oral (F) 98.5 F 01/08/[address] [facility] Heart Rate 68 01/08/2018 [facility] Systolic (mm Hg) 114 01/08/2018 [facility] Diastolic (mm Hg) 74 01/08/[address] [facility] Respitory Rate 18 01/08/[address] [facility] Systolic (mm Hg) 125 01/08/[address] [facility] Diastolic (mm Hg) 73 01/08/[address] [facility] Temperature Oral (F) 98.5 F 01/08/[address] [facility] Heart Rate 66 01/08/2018 [facility] Systolic (mm Hg) 103 01/08/2018 [facility] Diastolic (mm Hg) 62 01/08/[address] [facility] Respitory Rate 18 01/08/[address] [facility] Heart Rate 65 01/08/[address] [facility] Temperature Oral (F) 98.3 F 01/08/[address] [facility] Height 172.72 cm 01/06/[address] [facility] Weight 111.818 01/06/[address] [facility] BMI Calculated 37.48 01/06/[address] [facility] Height 172.72 cm 01/05/[address] [facility] Weight 111.818 01/05/[address] [facility] BMI Calculated 37.48 01/05/[address] [facility] Encounters Location Location Details Encounter Type Encounter Number Reason For Visit Attending Provider ADM Date DC Date Status Source [facility] Inpatient [id number] Chel Lupis 01/05/2018 01/08/2018 [facility] Outpatient [id number] Chel Lupis 01/31/2018 02/01/2018 [facility] Recurring [id number] Chel Lupis 02/14/2018 03/16/2018 [facility] Recurring [id number] Chel Lupis 03/27/2018 04/26/2018 [facility] Recurring [id number] Chel Lupis 05/09/2018 06/08/2018 [facility] [place] [facility] [id number] Chel Lupis 06/22/2018 06/23/2018 [id number] [facility] Recurring [id number] Chel Lupis 09/20/2018 10/20/2018 [facility] Recurring [id number] Chel Lupis 12/20/2018 01/19/2019 [facility] [id number] Chel Lupis 12/28/2018 12/29/2018 [facility] Procedures Procedure Code Date Perfomer Comments Source Biopsy of vulva [id number] [facility] section [id number] [facility] Biopsy of vulva [id number] [facility] section [id number] [facility] Hysterectomy [id number] [facility] Cannulation of Portacath [id number] [facility] Chemotherapy [id number] [facility] Biopsy of vulva [id number] [facility] Cannulation of Portacath [id number] [facility] section [id number] [facility] Chemotherapy [id number] [facility] Hysterectomy [id number] [facility] Biopsy of vulva [id number] Cannulation of Portacath [id number] section [id number] Chemotherapy [id number] Hysterectomy [id number]
--- OUTSIDE RECORDS SUMMARY | 2019-02-04 13:26 | XMS REPORT | Summary of Care ---
Author Author [facility] Outpatient [facility] Organization [facility] Outpatient [facility] Address Unknown Phone Unavailable Encounter HQ [place]) [id number] Date(s): 06/22/18 - 06/22/18 [facility] Outpatient [facility] Encounter Diagnosis Malignant neoplasm of endometrium (Final) - 06/27/18 Fatty (change of) liver, not elsewhere classified (Final) - Hepatomegaly, not elsewhere classified (Final) - Incisional hernia without obstruction or gangrene (Final) - Discharge Disposition: Home or Self Care Attending Physician: Chel Baugh MD Referring Physician: Chel Baugh MD Vital Signs No data available for this section Problem List Condition Effective Dates Status Health Status Informant Hyperlipidemia(Confi Resolved rmed) Hypertension(Confirm Resolved ed) Uterine Resolved cancer(Confirmed) DM (diabetes Resolved mellitus) type 2, uncontrolled, with ketoacidosis(Confirm ed) Allergies, Adverse Reactions, Alerts No Known Medication Allergies Medications No data available for this section Results No data available for this section Immunizations No data available for this section Procedures Procedure Date Related Diagnosis Body Site Status Biopsy of vulva Completed Cannulation of Portacath Completed section Completed Chemotherapy Completed Hysterectomy Completed Social History Social History Type Response Substance Abuse Use: None. Alcohol Past, Frequency: 1-2 times per year. Previous treatment: None.1 Smoking Status Never smoker; Exposure to Tobacco Smoke None; Cigarette Smoking Last 365 Days No; Reg Smoking Cessation Counseling No entered on: 12/20/18 1very rare Assessment and Plan No data available for this section
--- OUTSIDE RECORDS SUMMARY | 2019-02-04 13:26 | XMS REPORT | Summary of Care ---
Author Author [facility] Organization [facility] Address Unknown Phone Unavailable Encounter HQ Sachin(FIN) [id number] Date(s): 03/27/18 - 04/25/18 [facility] [address] [place] [address]- Encounter Diagnosis Encounter for antineoplastic chemotherapy (Final) - 05/01/18 Malignant neoplasm of endometrium (Final) - Discharge Disposition: Home or Self Care Attending Physician: Chel Baugh MD Referring Physician: Chel Baugh MD Vital Signs Most recent to 1 2 oldest [Reference Range]: Height 170.6 cm 170 cm (03/28/18 3:44 PM) (03/27/18 10:57 AM) Temperature Oral 98.7 DegF 98.4 DegF [96.4-99.1 DegF] (04/20/18 9:03 AM) (03/29/18 9:13 AM) Blood Pressure 131/84 mmHg 143/81 mmHg [90-140/60-90 mmHg] (04/20/18 9:03 AM) *HI* (03/29/18 9:13 AM) Respiratory Rate 18 BRMIN 18 BRMIN [14-20 BRMIN] (04/20/18 9:03 AM) (03/29/18 9:13 AM) Peripheral Pulse 74 bpm 85 bpm Rate [60-100 bpm] (04/20/18 9:03 AM) (03/29/18 9:13 AM) Weight 113.4 kg 113 kg (03/28/18 3:44 PM) (03/27/18 10:57 AM) Body Mass Index 38.96 m2 39.1 m2 (03/28/18 3:44 PM) (03/27/18 10:57 AM) Problem List Condition Effective Dates Status Health Status Informant Hyperlipidemia(Confi Resolved rmed) Hypertension(Confirm Resolved ed) Uterine Resolved cancer(Confirmed) DM (diabetes Resolved mellitus) type 2, uncontrolled, with ketoacidosis(Confirm ed) Allergies, Adverse Reactions, Alerts Substance Reaction Severity Status NKDA Active Medications Benadryl 50 mg, 1 mL, Route: IVP, Drug form: INJ, ONCALL, Start date: 04/20/18 9:00:00 CD T, Duration: 10 hr, Stop date: 04/20/18 18:59:00 CDT Notes: (Same as: Benadryl) Start Date: 04/20/18 Stop Date: 04/20/18 Status: Completed Benadryl 50 mg, 1 mL, Route: IVP, Drug form: INJ, ONCALL, Start date: 03/29/18 8:00:00 CD T, Duration: 10 hr, Stop date: 03/29/18 17:59:00 CDT Notes: (Same as: Benadryl) Start Date: 03/29/18 Stop Date: 03/29/18 Status: Completed CARBOplatin + Sodium Chloride 0.9% IV 175 mL 750 mg, 75 mL, Route: IVPB, Drug form: INJ, ONCALL, Start date: 03/29/18 8:00:00 CDT, Duration: 10 hr, Stop date: 03/29/18 17:59:00 CDT Notes: WASTE: F/P - Black; E - Yellow CHEMOTHERAPY. DO NOT use needle or alumi nium parts. (Same As: Paraplatin). Infuse entire contents for full dose Start Date: 03/29/18 Stop Date: 03/29/18 Status: Completed CARBOplatin + Sodium Chloride 0.9% IV 175 mL 750 mg, 75 mL, Route: IVPB, Drug form: INJ, ONCALL, Start date: 04/20/18 9:00:00 CDT, Duration: 10 hr, Stop date: 04/20/18 18:59:00 CDT Notes: WASTE: F/P - Black; E - Yellow CHEMOTHERAPY. DO NOT use needle or alumi nium parts. (Same As: Paraplatin). Infuse entire contents for full dose Start Date: 04/20/18 Stop Date: 04/20/18 Status: Completed dexamethasone + Sodium Chloride 0.9% IV 45 mL 20 mg, 5 mL, Route: IVPB, Drug form: INJ, ONCALL, Start date: 04/20/18 9:00:00 C DT, Duration: 10 hr, Stop date: 04/20/18 18:59:00 CDT Start Date: 04/20/18 Stop Date: 04/20/18 Status: Completed dexamethasone + Sodium Chloride 0.9% IV 45 mL 20 mg, 5 mL, Route: IVPB, Drug form: INJ, ONCALL, Start date: 03/29/18 8:00:00 C DT, Duration: 10 hr, Stop date: 03/29/18 17:59:00 CDT Start Date: 03/29/18 Stop Date: 03/29/18 Status: Completed famotidine 20 mg, 2 mL, Route: IVP, Drug form: INJ, ONCALL, Start date: 04/20/18 9:00:00 CD T, Duration: 10 hr, Stop date: 04/20/18 18:59:00 CDT Notes: (Same as: Pepcid)Can be dilute in 5-10cc NS IVP: Slow IV push over at le ast 2 minutes. Start Date: 04/20/18 Stop Date: 04/20/18 Status: Completed famotidine 20 mg, 2 mL, Route: IVP, Drug form: INJ, ONCALL, Start date: 03/29/18 8:00:00 CD T, Duration: 10 hr, Stop date: 03/29/18 17:59:00 CDT Notes: (Same as: Pepcid)Can be dilute in 5-10cc NS IVP: Slow IV push over at le ast 2 minutes. Start Date: 03/29/18 Stop Date: 03/29/18 Status: Completed heparin flush 500 unit, 5 mL, Route: IV, Drug form: SOLN, ONCALL, Start date: 03/29/18 8:00:00 CDT, Duration: 10 hr, Stop date: 03/29/18 17:59:00 CDT Notes: (Same as: Heparin Lock Flush) Start Date: 03/29/18 Stop Date: 03/29/18 Status: Completed heparin flush 500 unit, 5 mL, Route: IV, Drug form: SOLN, ONCALL, Start date: 04/20/18 9:00:00 CDT, Duration: 10 hr, Stop date: 04/20/18 18:59:00 CDT Notes: (Same as: Heparin Lock Flush) Start Date: 04/20/18 Stop Date: 05/11/18 Status: Discontinued heparin flush 500 unit, 5 mL, Route: IV, Drug form: SOLN, ONCALL, Start date: 04/20/18 9:00:00 CDT, Duration: 10 hr, Stop date: 04/20/18 18:59:00 CDT Notes: (Same as: Heparin Lock Flush) Start Date: 04/20/18 Stop Date: 04/21/18 Status: Completed magnesium sulfate 2 gm, 50 mL, Route: IVPB, Drug form: INJ, ONCALL, Start date: 04/20/18 9:00:00 C DT, Duration: 10 hr, Stop date: 04/20/18 18:59:00 CDT Notes: WASTE: F/P - Sink; E - Municipal Trash Bin Start Date: 04/20/18 Stop Date: 04/20/18 Status: Completed Neulasta 6 mg, 0.6 mL, Route: SUB-Q, Drug form: INJ, ONCALL, Start date: 03/30/18 8:00:00 CDT, Duration: 7 day, Stop date: 04/06/18 7:59:00 CDT Notes: (Same as: Neulasta) Restricted to Outpatient Start Date: 03/30/18 Stop Date: 03/30/18 Status: Completed Neulasta 6 mg, 0.6 mL, Route: SUB-Q, Drug form: INJ, ONCALL, Start date: 04/21/18 13:00:0 0 CDT, Duration: 7 day, Stop date: 04/28/18 12:59:00 CDT Notes: (Same as: Neulasta) Restricted to Outpatient Start Date: 04/21/18 Stop Date: 04/24/18 Status: Deleted PACLitaxel + Sodium Chloride 0.9% IV 441.65 mL 350 mg, 58.35 mL, Route: IV, Drug form: SOLN, ONCALL, Start date: 03/29/18 8:00: 00 CDT, Duration: 10 hr, Stop date: 03/29/18 17:59:00 CDT Start Date: 03/29/18 Stop Date: 03/29/18 Status: Completed PACLitaxel + Sodium Chloride 0.9% IV 445 mL 330 mg, 55.01 mL, Route: IV, Drug form: INJ, ONCALL, Start date: 04/20/18 9:00:0 0 CDT, Duration: 10 hr, Stop date: 04/20/18 18:59:00 CDT Notes: Non-Formulary DrugUse non-PVC bag and tubing set for administration. Adm inister with a 0.22 micron in-line filter. CHEMOTHERAPY; Infuse entire contents for full doseWASTE: F/P - Black; E - Yellow (Same as: Taxol) Start Date: 04/20/18 Stop Date: 04/20/18 Status: Completed Sodium Chloride 0.9% IV 250 mL, IV, 30 ml/hr, ONCALL, Start date: 03/29/18 8:00:00 CDT, Duration: 10, 25 0 ml Start Date: 03/29/18 Stop Date: 03/29/18 Status: Completed Sodium Chloride 0.9% IV 250 mL, IV, 30 ml/hr, ONCALL, Start date: 04/20/18 9:00:00 CDT, Duration: 10, 25 0 ml Start Date: 04/20/18 Stop Date: 04/20/18 Status: Completed Zofran + Sodium Chloride 0.9% IV 46 mL 8 mg, 4 mL, Route: IVPB, Drug form: INJ, ONCALL, Start date: 03/29/18 8:00:00 CD T, Duration: 10 hr, Stop date: 03/29/18 17:59:00 CDT Notes: (Same as: Zofran) Start Date: 03/29/18 Stop Date: 03/29/18 Status: Completed Zofran + Sodium Chloride 0.9% IV 46 mL 8 mg, 4 mL, Route: IVPB, Drug form: INJ, ONCALL, Start date: 04/20/18 9:00:00 CD T, Duration: 10 hr, Stop date: 04/20/18 18:59:00 CDT Notes: (Same as: Zofran) Start Date: 04/20/18 Stop Date: 04/20/18 Status: Completed Results ELECTROLYTES Most recent to 1 2 oldest [Reference Range]: Sodium Lvl [135-145 143 mEq/L 143 mEq/L mEq/L] (04/18/18 10:18 AM) (03/27/18 11:00 AM) Potassium Lvl 4.2 mEq/L 4.3 mEq/L [3.5-5.1 mEq/L] (04/18/18 10:18 AM) (03/27/18 11:00 AM) Chloride Lvl [95-109 107 mEq/L 107 mEq/L mEq/L] (04/18/18 10:18 AM) (03/27/18 11:00 AM) CO2 [24-32 mEq/L] 25 mEq/L 28 mEq/L (04/18/18 10:18 AM) (03/27/18 11:00 AM) AGAP [10.0-20.0 15.2 mEq/L 12.3 mEq/L mEq/L] (04/18/18 10:18 AM) (03/27/18 11:00 AM) CHEM PANEL Most recent to 1 2 oldest [Reference Range]: Creatinine Lvl 0.61 mg/dL 0.68 mg/dL [0.50-1.40 mg/dL] (04/18/18 10:18 AM) (03/27/18 11:00 AM) eGFR 106 mL/min/1.73m2 1 102 mL/min/1.73m2 2 *NA* *NA* (04/18/18 10:18 AM) (03/27/18 11:00 AM) BUN [7-22 mg/dL] 14 mg/dL 11 mg/dL (04/18/18 10:18 AM) (03/27/18 11:00 AM) B/C Ratio [6-25] 23 16 (04/18/18 10:18 AM) (03/27/18 11:00 AM) Glucose Lvl [70-99 107 mg/dL 102 mg/dL mg/dL] *HI* *HI* (04/18/18 10:18 AM) (03/27/18 11:00 AM) Total Protein 6.7 g/dL 6.7 g/dL [6.4-8.4 g/dL] (04/18/18 10:18 AM) (03/27/18 11:00 AM) Albumin Lvl [3.5-5.0 3.8 g/dL 3.9 g/dL g/dL] (04/18/18 10:18 AM) (03/27/18 11:00 AM) Globulin [2.7-4.2 2.9 g/dL 2.8 g/dL g/dL] (04/18/18:18 AM) (03/27/18 11:00 AM) A/G Ratio [0.7-1.6] 1.3 1.4 (04/18/18:18 AM) (03/27/18 11:00 AM) Calcium Lvl 9.0 mg/dL 9.2 mg/dL [8.5-10.5 mg/dL] (04/18/18 10:18 AM) (03/27/18 11:00 AM) Magnesium Lvl 1.7 mg/dL 2.0 mg/dL [1.8-2.4 mg/dL] *LOW* (03/27/18 11:00 AM) (04/18/18 10:18 AM) ALT [0-65 unit/L] 54 unit/L 49 unit/L (04/18/18 10:18 AM) (03/27/18 11:00 AM) AST [0-37 unit/L] 28 unit/L 23 unit/L (04/18/18 10:18 AM) (03/27/18 11:00 AM) Alk Phos [39-136 74 unit/L 56 unit/L unit/L] (04/18/18 10:18 AM) (03/27/18 11:00 AM) Bili Total [0.2-1.3 0.2 mg/dL 0.2 mg/dL mg/dL] (04/18/18:18 AM) (03/27/18 11:00 AM) 1Result Comment: The eGFR is calculated using the [...] from the National Kidney Disease Education Program ( NKDEP) which additionally recommends that when the eGFR is used in patients with extremes of body mass index for purposes of drug dosing, the eGFR should be mul tiplied by the estimated BMI. 2Result Comment: The eGFR is calculated using the [...] from the National Kidney Disease Education Program ( NKDEP) which additionally recommends that when the eGFR is used in patients with extremes of body mass index for purposes of drug dosing, the eGFR should be mul tiplied by the estimated BMI. HEMATOLOGY Most recent to 1 2 oldest [Reference Range]: WBC [3.7-10.4 K/CMM] 4.4 K/CMM 2.8 K/CMM (04/18/18 10:18 AM) *LOW* (03/27/18 11:00 AM) RBC [4.20-5.40 4.13 M/CMM 4.41 M/CMM M/CMM] *LOW* (03/27/18 11:00 AM) (04/18/18 10:18 AM) Hgb [12.0-16.0 g/dL] 11.4 g/dL 11.6 g/dL *LOW* *LOW* (04/18/18 10:18 AM) (03/27/18 11:00 AM) Hct [36.0-48.0 %] 34.0 % 35.5 % *LOW* *LOW* (04/18/18:18 AM) (03/27/18 11:00 AM) MCV [80.0-98.0 fL] 82.3 fL 80.5 fL (04/18/18 10:18 AM) (03/27/18 11:00 AM) MCH [27.0-31.0 pg] 27.5 pg 26.4 pg (04/18/18:18 AM) *LOW* (03/27/18 11:00 AM) MCHC [32.0-36.0 33.4 g/dL 32.8 g/dL g/dL] (04/18/18:18 AM) (03/27/18 11:00 AM) RDW [11.5-14.5 %] 21.9 % 19.8 % *HI* *HI* (04/18/18:18 AM) (03/27/18 11:00 AM) MPV [7.4-10.4 fL] 7.8 fL 7.4 fL (04/18/18:18 AM) (03/27/18 11:00 AM) Platelet [133-450 266 K/CMM 256 K/CMM K/CMM] (04/18/18:18 AM) (03/27/18 11:00 AM) Segs [45.0-75.0 %] 68.6 % 46.8 % (04/18/18:18 AM) (03/27/18 11:00 AM) Lymphocytes 22.0 % 37.9 % [20.0-40.0 %] (04/18/18:18 AM) (03/27/18 11:00 AM) Monocytes [2.0-12.0 8.5 % 13.4 % %] (04/18/18 10:18 AM) *HI* (03/27/18 11:00 AM) Eosinophils [0.0-4.0 0.4 % 1.3 % %] (04/18/18:18 AM) (03/27/18 11:00 AM) Basophils [0.0-1.0 0.5 % 0.6 % %] (04/18/18 10:18 AM) (03/27/18 11:00 AM) Neutrophils # 3.0 K/CMM 1.3 K/CMM [1.5-8.1 K/CMM] (04/18/18 10:18 AM) *LOW* (03/27/18 11:00 AM) Lymphocytes # 1.0 K/CMM 1.0 K/CMM [1.0-5.5 K/CMM] (04/18/18 10:18 AM) (03/27/18 11:00 AM) Monocytes # [0.0-0.8 0.4 K/CMM 0.4 K/CMM K/CMM] (04/18/18 10:18 AM) (03/27/18 11:00 AM) TUMOR MARKERS Most recent to 1 2 oldest [Reference Range]: CA 125 [0.0-35.0 3.4 unit/mL 3.8 unit/mL unit/mL] (04/18/18 10:18 AM) (03/27/18 11:00 AM) Immunizations No data available for this section [...] Reg Smoking Cessation Counseling No entered on: 06/28/18 1very rare Assessment and Plan No data available for this section
--- OUTSIDE RECORDS SUMMARY | 2019-02-04 13:26 | XMS REPORT | Summary of Care ---
Author Author [facility] Organization [facility] Address Unknown Phone Unavailable Encounter HQ Brandon_jennifer(FIN) [id number] Date(s): 09/20/18 - 10/19/18 [facility] [address] [place] [address]- Discharge Disposition: Home or Self Care Attending Physician: Chel Baugh MD Referring Physician: Chel Baugh MD Vital Signs No data available for this section Problem List Condition Effective Dates Status Health Status Informant Hyperlipidemia(Confi Resolved rmed) Hypertension(Confirm Resolved ed) Uterine Resolved cancer(Confirmed) DM (diabetes Resolved mellitus) type 2, uncontrolled, with ketoacidosis(Confirm ed) Allergies, Adverse Reactions, Alerts Substance Reaction Severity Status NKDA Active Medications No data available for this section Results TUMOR MARKERS Most recent to 1 oldest [Reference Range]: CA 125 [0.0-35.0 2.2 unit/mL unit/mL] (09/20/18 11:57 AM) Immunizations No data available for this [...]
--- OUTSIDE RECORDS SUMMARY | 2019-02-04 13:26 | XMS REPORT | Summary of Care ---
Author Author [facility] Organization Unknown Address Unknown Phone Unavailable Care Team Providers Care Open Cut Examiner Name Role Phone MALDONADO CARRASCO N.P. Unavailable Unavailable Unavailable Unavailable Functional Status Name Dates Details Functional status health issues are not documented Status: Name Dates Details Cognitive status health issues are not documented Status: Problems Name Dates Details Uterine cancer (179, C55) Status: Active Admission for chemotherapy (V58.11, Z51.11) Status: Active Chemotherapy-induced nausea (787.02, R11.0) Status: Active Encounter for chemotherapy management (V58.11, Z51.11) Status: Active Medications Name Dates Details Simvastatin 10 MG Oral Tablet Active Nifedical XL 30 MG TB24 * Refills: 0 Active Iron TABS * Refills: 0 Active Vitamin C 500 MG Oral Tablet * Refills: 0 Active Ondansetron HCl - 8 MG Oral Tablet TAKE 1 TABLET EVERY 8 HOURS NEEDED FOR BREAKTHROUGH NAUSEA AND/OR VOMITING. * Quantity: 30 Refills: 5 LUNA Brand.MALDONADO Cruz * Start : 18-Jan-2018 Active Prochlorperazine Maleate 10 MG Oral Tablet TAKE 1 TABLET EVERY 6 HOURS NEEDED FOR NAUSEA. * Quantity: 30 Refills: 4 MALDONADO CARRASCO N.P. * Start : 18-Jan-2018 Active Lidocaine-Prilocaine 2.5-2.5 % External Cream APPLY 1 INCH TO IV SITE PRIOR TO CHEMO TREATMENT. * Quantity: 30 Refills: 3 MALDONADO CARRASCO N.P. * Start : 29-Mar-2018 Active Allergies and Adverse Reactions Name Dates Details No Known Drug Allergies (Allergy) Status: Active Past Medical History Name Dates Details History of diabetes mellitus (V12.29, Z86.39) Status: Resolved History of high cholesterol (V12.29, Z86.39) Status: Resolved History of hypertension (V12.59, Z86.79) Status: Resolved History of Mass (782.2, R22.9) Status: Resolved Procedures Procedure Dates Details History of section Completed History of Vulvar biopsy Completed History of Oral surgery Completed Immunization Name Dates Details Tdap on: 2015 Hepatitis B, adult on: Sep-2017 Influenza on: 2017 Pneumo (Prevnar 7) on: 2017 Hepatitis B, adult on: Dec-2017 Family History Name Dates Details Family history of (798.2, R99) Status: Active Name Dates Details Family history of (798.2, R99) Status: Active Family history of throat cancer (V16.0, Z80.0) Status: Active Name Dates Details Family history of (798.2, R99) Status: Active Name Dates Details FHx: uterine cancer (V16.49, Z80.49) Status: Active Name Dates Details Family history of pancreatic cancer (V16.0, Z80.0) Status: Active Name Dates Details Family history of High cholesterol (272.0, E78.00) Status: Active Family history of hypertension (V17.49, Z82.49) Status: Active Family history of congestive heart failure (V17.49, Z82.49) Status: Active Name Dates Details Family history of malignant neoplasm of breast (V16.3, Z80.3) Status: Active FHx: breast cancer (V16.3, Z80.3) Status: Active Name Dates Details Family history of (798.2, R99) Status: Active Social History Name Dates Details Unknown if ever smoked Vital Signs Date Test Result Details :30 BP Systolic 116 mm[Hg] Status: Comments: Location: E; Position: Sitting BP Diastolic 74 mm[Hg] Status: Comments: Location: E; Position: Sitting Height 67.32 in Status: Weight 252 lb Status: Body Mass Index Calculated 39.1 kg/m2 Status: Body Surface Area Calculated 2.24 m2 Status: Temperature 97.9 f Status: Comments: Method: Oral Heart Rate 85 /min Status: Respiration Rate 18 /min Status: [id number] BP Systolic 131 mm[Hg] Status: BP Diastolic 78 mm[Hg] Status: Height 67.32 in Status: Weight 251.8 lb Status: Body Mass Index Calculated 39.06 kg/m2 Status: Body Surface Area Calculated 2.24 m2 Status: Temperature 98.3 f Status: Comments: Method: Oral Heart Rate 77 /min Status: O2 SAT 98 % Status: Results Date Description Value Details Results not documented Plan of Care Name Dates Details Planned Observations Planned Goals not documented Planned Encounters Appointment; JUAN ODELL M.D. On: 10-May-2018 8:40 Interventions Provided Discussion/Summary* Ms. Santiago is a 52 yo Female s/p EL TIGRE, BSO, APPY, Omentectomy on 01/05/18. Pathology revealed Stage 3A Adenocarcinoma of Endometrium. * Plan: * 1. 3A adenocarcinoma of Endometrium: Tolerating chemotherapy well. no major complaints. ANC improved with addition of neulasta. Labs appropriate for chemotherapy infusion as planned on 04/20/18. CA-125 low and stable at 3.4. Proceed with chemotherapy, cycle 4. * RTC 3 weeks for next chemotherapy clearance. * Discussed above with patient (spent 10 minutes face to face). Questions answered. Instructions Name Dates Details Instructions not documented Encounters Appointment; JUAN ODELL M.D. Encounter Diagnosis: Problem not documented On: 28-Dec-2017 11:00 Appointment; JUAN ODELL M.D. Encounter Diagnosis: Problem not documented On: 05-Jan-2018 13:00 Appointment; JUAN ODELL M.D. Encounter Diagnosis: Problem not documented On: 18-Jan-2018 8:40 Appointment; LOG MANAGER-ONCOLOGY, PROVIDER Encounter Diagnosis: Problem not documented On: 15-Feb-2018 8:40 Appointment; JUAN ODELL M.D. Encounter Diagnosis: Problem not documented On: 08-Mar-2018 9:20 Appointment; JUAN ODELL M.D. Encounter Diagnosis: Problem not documented On: 29-Mar-2018 8:40 Appointment; LOG MANAGER-ONCOLOGY, PROVIDER Encounter Diagnosis: Problem not documented On: 19-Apr-2018 8:20
--- OUTSIDE RECORDS SUMMARY | 2019-02-04 13:26 | XMS REPORT | Summary of Care ---
Author Author [facility] Organization [facility] Address Unknown Phone Unavailable Encounter HQ Sachin(RYLEE) [id number] Date(s): 12/20/18 - 01/18/19 [facility] [address] [place] [address]- Discharge Disposition: Home or Self Care Attending Physician: Chel Baugh MD Referring Physician: Chel Baugh MD Vital Signs Most recent to 1 oldest [Reference Range]: Height 172.72 cm (12/20/18 11:30 AM) Weight 115.909 kg (12/20/18 11:30 AM) Body Mass Index 38.85 m2 (12/20/18 11:30 AM) Problem List Condition Effective Dates Status Health Status Informant Hyperlipidemia(Confi Resolved rmed) Hypertension(Confirm Resolved ed) Uterine Resolved cancer(Confirmed) DM (diabetes Resolved mellitus) type 2, uncontrolled, with ketoacidosis(Confirm ed) Allergies, Adverse Reactions, Alerts No Known Medication Allergies Medications heparin flush 500 unit, 5 mL, Route: IV, Drug form: [place], Start date: 12/19/18 13:00:0 0 CDT, Duration: 8 hr, Stop date: 12/19/18 20:59:00 CDT Notes: (Same as: Heparin Lock Flush) Start Date: 12/19/18 Stop Date: 12/20/18 Status: Completed Results Most recent to 1 oldest [Reference Range]: CA 125 [0.0-35.0 4.5 unit/mL unit/mL] (12/20/18 12:05 PM) Immunizations No data available for this section [...]
--- OUTSIDE RECORDS SUMMARY | 2019-02-04 13:26 | XMS REPORT | Summary of Care ---
Author Author [facility] Address Unknown Phone Unavailable Encounter HQ Sachin(FIN) [id number] Date(s): 12/28/18 - 12/28/18 [facility] Outpatient [facility] [address] [facility] [address] [place] [phone] Discharge Disposition: Home or Self Care Attending [...]
--- OUTSIDE RECORDS SUMMARY | 2019-02-04 13:26 | XMS REPORT ---
Author Author [facility] Address Unknown Phone Unavailable Care Team Providers Care Master Dyer Name Role Phone Unavailable Unavailable Problems This patient has no known problems. Allergies, Adverse Reactions, Alerts This patient has no known allergies or adverse reactions. Medications This patient has no known medications. Encounters Start Date/Time End Date/Time Encounter Type Admission Type Attending Clinicians Care Facility Care Department Encounter ID 2018-12-20 11:47:00 2018-12-20 11:47:00 [place] [facility] [place] [address]
--- OUTSIDE RECORDS SUMMARY | 2019-02-04 13:26 | XMS REPORT | Summary of Care ---
Author Author [facility] Organization [facility] Address Unknown Phone Unavailable Encounter HQ Sachin(RYLEE) [id number] Date(s): 01/05/18 - 01/08/[address] [facility] [address] [employer] provided by [facility] [place] [address]- Discharge Disposition: Home or Self Care Attending Physician: Chel Baugh MD Admitting Physician: Chel Baugh MD Referring Physician: Chel Baugh MD Vital Signs 1 2 3 Most recent to oldest [Reference Range]: 172.72 cm (01/05/18 11:26 PM) 172.72 cm (01/05/18 11:33 AM) Height 98.5 DegF (01/08/18 11:18 AM) 98.5 DegF (01/08/18 7:43 AM) 98.3 DegF (01/08/18 3:00 AM) Temperature Oral [96.4-99.1 DegF] 114/74 mmHg (01/08/18 11:18 AM) 125/73 mmHg (01/08/18 7:43 AM) 103/62 mmHg (01/08/18 3:00 AM) Blood Pressure [90-140/60-90 mmHg] 18 BRMIN (01/08/18 11:18 AM) 18 BRMIN (01/08/18 7:43 AM) 18 BRMIN (01/08/18 3:00 AM) Respiratory Rate [14-20 BRMIN] 68 bpm (01/08/18 11:18 AM) 66 bpm (01/08/18 7:43 AM) 65 bpm (01/08/18 3:00 AM) Peripheral Pulse Rate [60-100 bpm] 111.818 kg (01/05/18 11:26 PM) 111.818 kg (01/05/18 11:33 AM) Weight 37.48 m2 (01/05/18 11:26 PM) 37.48 m2 (01/05/18 11:33 AM) Body Mass Index Problem List No data available for this section Allergies, Adverse Reactions, Alerts Substance Reaction Severity Status NKDA Active Medications acetaminophen 1,000 mg, 2 tab, Route: PO, Drug form: TAB, Q6H, Dosing Weight 111.818, kg, Star t date: 01/05/18 23:13:00 CDT, Duration: 30 day, Stop date: 02/04/18 18:00:00 CD T Notes: Max acetaminophen 4000 mg/day (4 gm/day). (Same as: Tylenol Extra Streng th) Start Date: 01/05/18 Stop Date: 01/08/18 Status: Discontinued acetaminophen (ANES) Route: IV, Drug form: INJ, ONCE, Stop date: 01/05/18 18:29:00 CDT Start Date: 01/05/18 Stop Date: 01/05/18 Status: Completed acetaminophen 500 mg oral tablet 1,000 mg=2 tab, PO, Q6H, # 60 tab, 0 Refill(s), Pharmacy: [id number] Start Date: 01/08/18 Stop Date: 02/07/18 Status: Ordered Aleve 220 mg, PO, PRN Start Date: 01/03/18 Status: Ordered ANES acetaminophen 1,000 mg, Route: IVPB, Drug form: INJ, ONCE, Dosing Weight 111.818, kg, PRN Pain Score 1-3, Start date: 01/05/18 21:07:00 CDT Start Date: 01/05/18 Stop Date: 01/05/18 Status: Discontinued ANES flumazenil 0.2 mg, Route: IVP, PRN, Dosing Weight 111.818, kg, PRN Benzodiazepine Reversal, Initial dose, Start date: 01/05/18 21:07:00 CDT, Duration: 30 day, Stop date: 0 02/04/18 21:06:00 CDT Start Date: 01/05/18 Stop Date: 01/05/18 Status: Discontinued ANES HYDROmorphone 0.5 mg, Route: IVP, Q5Min, Dosing Weight 111.818, kg, PRN Pain Score 7-10, Start date: 01/05/18 21:07:00 CDT, Duration: 4 doses or times, Stop date: Limited # of times Start Date: 01/05/18 Stop Date: 01/05/18 Status: Discontinued ANES naloxone 0.4 mg, Route: IVP, Q2MIN, Dosing Weight 111.818, kg, PRN Narcotic Reversal, Sta rt date: 01/05/18 21:07:00 CDT, Duration: 8 doses or times, Stop date: Limited # of times Start Date: 01/05/18 Stop Date: 01/05/18 Status: Discontinued ANES ondansetron 4 mg, Route: IVP, ONCE, Dosing Weight 111.818, kg, PRN Nausea & Vomiting, Start date: 01/05/18 21:07:00 CDT Start Date: 01/05/18 Stop Date: 01/05/18 Status: Discontinued ANES oxyCODONE 5 mg, Route: PO, Drug form: TAB, Q4H, Dosing Weight 111.818, kg, PRN Pain Score 4-6, Start date: 01/05/18 21:07:00 CDT, Duration: 30 day, Stop date: 02/04/18 21 :06:00 CDT Start Date: 01/05/18 Stop Date: 01/05/18 Status: Discontinued bupivacaine (ANES) Route: EPIDURAL, Drug Form: INJ, ONCE, Stop date: 01/05/18 17:14:00 CDT Start Date: 01/05/18 Stop Date: 01/05/18 Status: Completed bupivacaine (ANES) Route: EPIDURAL, Drug Form: INJ, ONCE, Stop date: 01/05/18 16:54:00 CDT Start Date: 01/05/18 Stop Date: 01/05/18 Status: Completed ceFAZolin (ANES) Route: IV, Drug form: INJ, ONCE, Stop date: 01/05/18 15:56:00 CDT Start Date: 01/05/18 Stop Date: 01/05/18 Status: Completed ceFAZolin (ANES) Route: IV, Drug form: INJ, ONCE, Stop date: 01/05/18 18:29:00 CDT Start Date: 01/05/18 Stop Date: 01/05/18 Status: Completed CeleBREX 400 mg, 2 cap, Route: PO, Drug form: CAP, ONCE, kg, Start date: 01/05/18 5:00:00 CDT, Stop date: 01/05/18 5:00:00 CDT Notes: NSAID. Please check indication. Not for seizure. (Same As: CeleBREX) Start Date: 01/05/18 Stop Date: 01/05/18 Status: Completed celecoxib 200 mg, 1 cap, Route: PO, Drug form: CAP, Q12H, Dosing Weight 111.818, kg, Start date: 01/05/18 23:14:00 CDT, Duration: 30 day, Stop date: 02/04/18 21:00:00 CDT Notes: NSAID. Please check indication. Not for seizure. (Same As: CeleBREX) Start Date: 01/05/18 Stop Date: 01/08/18 Status: Discontinued celecoxib 200 mg oral capsule 200 mg=1 cap, PO, Q12H, # 40 cap, 0 Refill(s), Pharmacy: [id number] Start Date: 01/08/18 Status: Ordered dexamethasone (ANES) Route: IV, Drug form: INJ, ONCE, Stop date: 01/05/18 17:49:00 CDT Start Date: 01/05/18 Stop Date: 01/05/18 Status: Completed dexmedetomidine (ANES) 200 microgram Route: IV, Drug form: INJ, Start date: 01/05/18 15:40:00 CDT, Stop date: 8 16:40:00 CDT Start Date: 01/05/18 Stop Date: 01/05/18 Status: Completed Dextrose 50% Syringe 25 gm, 50 mL, Route: IVP, Drug Form: INJ, Dosing Weight 111.818, kg, PRN, PRN Bl ood Glucose Results, Start date: 01/06/18 3:05:00 CDT, Duration: 30 day, Stop da te: 02/05/18 3:04:00 CDT Start Date: 01/06/18 Stop Date: 01/08/18 Status: Discontinued Dextrose 50% Syringe 12.5 gm, 25 mL, Route: IVP, Drug Form: INJ, Dosing Weight 111.818, kg, PRN, PRN Blood Glucose Results, Start date: 01/06/18 3:05:00 CDT, Duration: 30 day, Stop date: 02/05/18 3:04:00 CDT Start Date: 01/06/18 Stop Date: 01/08/18 Status: Discontinued docusate-senna 50 mg-8.6 mg oral tablet 2 tab, Route: PO, Drug Form: TAB, Dosing Weight 111.818, kg, Q12H, Start date: 0 01/05/18 23:15:00 CDT, Duration: 30 day, Stop date: 02/04/18 21:00:00 CDT Notes: (Same as Senvicenteot-S) Equiv. to Madai-Colace. Start Date: 01/05/18 Stop Date: 01/08/18 Status: Discontinued docusate-senna 50 mg-8.6 mg oral tablet 2 tab, PO, Q12H, # 60 tab, 2 Refill(s), Pharmacy: [facility] [id number] Start Date: 01/08/18 Stop Date: 02/07/18 Status: Ordered ePHEDrine (ANES) Route: IV, Drug form: INJ, ONCE, Stop date: 01/05/18 19:39:00 CDT Start Date: 01/05/18 Stop Date: 01/05/18 Status: Completed fentaNYL (ANES) Route: IV, Drug form: INJ, ONCE, Stop date: 01/05/18 15:41:00 CDT Start Date: 01/05/18 Stop Date: 01/05/18 Status: Completed fentaNYL (ANES) Route: IV, Drug form: INJ, ONCE, Stop date: 01/05/18 16:54:00 CDT Start Date: 01/05/18 Stop Date: 01/05/18 Status: Completed ferrous sulfate 65 mg, PO, BID Start Date: 01/03/18 Status: Ordered gabapentin 300 mg, 1 cap, Route: PO, Drug form: CAP, Q8H, Dosing Weight 111.818, kg, Start date: 01/05/18 23:14:00 CDT, Duration: 30 day, Stop date: 02/04/18 16:00:00 CDT Notes: (Same as: Neurontin) Start Date: 01/05/18 Stop Date: 01/08/18 Status: Discontinued gabapentin 300 mg oral capsule 300 mg, 1 cap, Route: PO, Drug form: CAP, ONCE, kg, Start date: 01/05/18 5:00:00 CDT, Stop date: 01/05/18 5:00:00 CDT Notes: (Same as: Neurontin) Start Date: 01/05/18 Stop Date: 01/05/18 Status: Completed gabapentin 300 mg oral capsule 300 mg=1 cap, PO, Q8H, # 60 cap, 0 Refill(s), Pharmacy: [facility] [id number] Start Date: 01/08/18 Status: Ordered glucagon 1 mg, Route: IM, Drug form: PDR/INJ, PRN, Dosing Weight 111.818, kg, PRN Blood G lucose Results, Start date: 01/06/18 3:05:00 CDT, Duration: 30 day, Stop date: 0 02/05/18 3:04:00 CDT Start Date: 01/06/18 Stop Date: 01/08/18 Status: Discontinued glycopyrrolate (ANES) Route: IV, Drug form: INJ, ONCE, Stop date: 01/05/18 20:04:00 CDT Start Date: 01/05/18 Stop Date: 01/05/18 Status: Completed heparin 5,000 unit, 1 mL, Route: SUB-Q, Drug form: INJ, ONCE, kg, Start date: 01/05/18 5 :00:00 CDT, Stop date: 01/05/18 5:00:00 CDT Notes: porcine heparin Start Date: 01/05/18 Stop Date: 01/05/18 Status: Completed insulin lispro 4 unit, 0.04 mL, Route: SUB-Q, Drug form: SOLN, Bedtime, Dosing Weight 111.818, kg, PRN Blood Glucose Results, Start date: 01/06/18 3:06:00 CDT, Duration: 30 da y, Stop date: 02/05/18 3:05:00 CDT Notes: (Same as: Humalog ) Roll in palms of hands gently; Do not shake `vigorou sly. "Single Patient Use Only " WASTE: F/P - Black; E - [address] [address] able for 28 days at room temperature.Expires in days from Da te Start Date: 01/06/18 Stop Date: 01/08/18 Status: Discontinued insulin lispro 1 unit, 0.01 mL, Route: SUB-Q, Drug form: SOLN, Bedtime, Dosing Weight 111.818, kg, PRN Blood Glucose Results, Start date: 01/06/18 3:06:00 CDT, Duration: 30 da y, Stop date: 02/05/18 3:05:00 CDT Notes: (Same as: Humalog ) Roll in palms of hands gently; Do not shake `vigorou sly. "Single Patient Use Only " WASTE: F/P - Black; E - [facility] [address] able for 28 days at room temperature.Expires in days from Da te Start Date: 01/06/18 Stop Date: 01/08/18 Status: Discontinued insulin lispro 2 unit, 0.02 mL, Route: SUB-Q, Drug form: SOLN, Bedtime, Dosing Weight 111.818, kg, PRN Blood Glucose Results, Start date: 01/06/18 3:06:00 CDT, Duration: 30 da y, Stop date: 02/05/18 3:05:00 CDT Notes: (Same as: Humalog ) Roll in palms of hands gently; Do not shake `vigorou sly. "Single Patient Use Only " WASTE: F/P - Black; E - [facility] [address] [address] able for 28 days at room temperature.Expires in days from Da te Start Date: 01/06/18 Stop Date: 01/08/18 Status: Discontinued insulin lispro 3 unit, 0.03 mL, Route: SUB-Q, Drug form: SOLN, Bedtime, Dosing Weight 111.818, kg, PRN Blood Glucose Results, Start date: 01/06/18 3:06:00 CDT, Duration: 30 da y, Stop date: 02/05/18 3:05:00 CDT Notes: (Same as: Humalog ) Roll in palms of hands gently; Do not shake `vigorou sly. "Single Patient Use Only " WASTE: F/P - Black; E - [facility] [address] [address] able for 28 days at room temperature.Expires in days from Da te Start Date: 01/06/18 Stop Date: 01/08/18 Status: Discontinued insulin lispro 10 unit, 0.1 mL, Route: SUB-Q, Drug form: SOLN, TID-Before Meals, Dosing Weight 111.818, kg, PRN Blood Glucose Results, Start date: 01/06/18 3:05:00 CDT, Durati on: 30 day, Stop date: 02/05/18 3:04:00 CDT Notes: (Same as: Humalog ) Roll in palms of hands gently; Do not shake `vigorou sly. "Single Patient Use Only " WASTE: F/P - Black; E - [facility] [address] able for 28 days at room temperature.Expires in days from Da te Start Date: 01/06/18 Stop Date: 01/08/18 Status: Discontinued insulin lispro 8 unit, 0.08 mL, Route: SUB-Q, Drug form: SOLN, TID-Before Meals, Dosing Weight 111.818, kg, PRN Blood Glucose Results, Start date: 01/06/18 3:05:00 CDT, Durati on: 30 day, Stop date: 02/05/18 3:04:00 CDT Notes: (Same as: Humalog ) Roll in palms of hands gently; Do not shake `vigorou sly. "Single Patient Use Only " WASTE: F/P - Black; E - [facility] [address] able for 28 days at room temperature.Expires in days from Da te Start Date: 01/06/18 Stop Date: 01/08/18 Status: Discontinued insulin lispro 6 unit, 0.06 mL, Route: SUB-Q, Drug form: SOLN, TID-Before Meals, Dosing Weight 111.818, kg, PRN Blood Glucose Results, Start date: 01/06/18 3:05:00 CDT, Durati on: 30 day, Stop date: 02/05/18 3:04:00 CDT Notes: (Same as: Humalog ) Roll in palms of hands gently; Do not shake `vigorou sly. "Single Patient Use Only " WASTE: F/P - Black; E - [facility] [address] able for 28 days at room temperature.Expires in days from Da te Start Date: 01/06/18 Stop Date: 01/08/18 Status: Discontinued insulin lispro 4 unit, 0.04 mL, Route: SUB-Q, Drug form: SOLN, TID-Before Meals, Dosing Weight 111.818, kg, PRN Blood Glucose Results, Start date: 01/06/18 3:05:00 CDT, Durati on: 30 day, Stop date: 02/05/18 3:04:00 CDT Notes: (Same as: Humalog ) Roll in palms of hands gently; Do not shake `vigorou sly. "Single Patient Use Only " WASTE: F/P - Black; E - [facility] [address] able for 28 days at room temperature.Expires in days from Da te Start Date: 01/06/18 Stop Date: 01/08/18 Status: Discontinued insulin lispro 2 unit, 0.02 mL, Route: SUB-Q, Drug form: SOLN, TID-Before Meals, Dosing Weight 111.818, kg, PRN Blood Glucose Results, Start date: 01/06/18 3:05:00 CDT, Durati on: 30 day, Stop date: 02/05/18 3:04:00 CDT Notes: (Same as: Humalog ) Roll in palms of hands gently; Do not shake `vigorou sly. "Single Patient Use Only " WASTE: F/P - Black; E - [facility] [address] able for 28 days at room temperature.Expires in days from Da te Start Date: 01/06/18 Stop Date: 01/08/18 Status: Discontinued ketAMINE (ANES) Route: IV, Drug form: INJ, ONCE, Stop date: 01/05/18 16:11:00 CDT Start Date: 01/05/18 Stop Date: 01/05/18 Status: Completed ketAMINE (ANES) 10 mg Route: IV, Drug form: INJ, Start date: 01/05/18 15:40:00 CDT, Stop date: 8 16:40:00 CDT Start Date: 01/05/18 Stop Date: 01/05/18 Status: Completed Lactated Ringers Injection IV (ANES) 1000 mL Route: IV, Total Volume: 1,000, Start date: 01/05/18 15:04:00 CDT, Stop date: 16:04:00 CDT Start Date: 01/05/18 Stop Date: 01/05/18 Status: Completed Lactated Ringers Injection IV (ANES) 1000 mL Route: IV, Total Volume: 1,000, Start date: 01/05/18 15:40:00 CDT, Stop date: 16:40:00 CDT Start Date: 01/05/18 Stop Date: 01/05/18 Status: Completed Lactated Ringers Injection IV 1,000 mL 1,000 mL, Rate: 100 ml/hr, Infuse over: 10 hr, Route: IV, Dosing Weight 111.818 kg, Total Volume: 1,000, Start date: 01/05/18 20:01:00 CDT, Duration: 30 day, St op date: 02/04/18 20:00:00 CDT, 2.35, m2 Start Date: 01/05/18 Stop Date: 01/06/18 Status: Discontinued lidocaine (ANES) Route: IV, Drug form: INJ, ONCE, Stop date: 01/05/18 15:41:00 CDT Start Date: 01/05/18 Stop Date: 01/05/18 Status: Completed magnesium gluconate 500 mg, 1 tab, Route: PO, Drug form: TAB, BID, Dosing Weight 111.818, kg, Start date: 01/06/18 9:00:00 CDT, Duration: 30 day, Stop date: 02/04/18 17:00:00 CDT Notes: (Same as: Almora)Magnesium gluconate 500mg=27mg elemental magnesium Dose = mg magnesium gluconate(___mg elemental magnesium) Start Date: 01/06/18 Stop Date: 01/08/18 Status: Discontinued metroNIDAZOLE (ANES) Route: IV, Drug form: INJ, ONCE, Stop date: 01/05/18 16:01:00 CDT Start Date: 01/05/18 Stop Date: 01/05/18 Status: Completed midazolam (ANES) Route: IV, Drug form: SOLN, ONCE, Stop date: 01/05/18 15:41:00 CDT Start Date: 01/05/18 Stop Date: 01/05/18 Status: Completed midazolam (ANES) Route: IV, Drug form: SOLN, ONCE, Stop date: 01/05/18 20:34:00 CDT Start Date: 01/05/18 Stop Date: 01/05/18 Status: Completed naloxone 0.1 mg, 0.25 mL, Route: IVP, Drug form: INJ, Q2MIN, Dosing Weight 111.818, kg, P RN Narcotic Reversal, Start date: 01/05/18 15:36:00 CDT, Duration: 8 doses or ti mes, Stop date: 02/04/18 0:00:00 CDT Notes: Same as Narcan Start Date: 01/05/18 Stop Date: 01/08/18 Status: Discontinued neostigmine (ANES) Route: IV, Drug form: INJ, ONCE, Stop date: 01/05/18 20:04:00 CDT Start Date: 01/05/18 Stop Date: 01/05/18 Status: Completed NIFEdipine 30 mg oral tablet, extended release 30 mg, 1 tab, Route: PO, Drug form: ERTAB, Daily, Dosing Weight 111.818, kg, Sta rt date: 01/06/18 9:00:00 CDT, Duration: 30 day, Stop date: 02/04/18 9:00:00 CDT Notes: (Same as: Adalat CC, Procardia XL) Give on empty stomach. Take 1 hour be fore or 2 hours after meal; "Avoid grapefruit and grapefruit juice". Do not cru sh Start Date: 01/06/18 Stop Date: 01/08/18 Status: Discontinued NIFEdipine 30 mg oral tablet, extended release 30 mg=1 tab, PO, Daily Start Date: 01/03/18 Status: Ordered ondansetron (ANES) Route: IV, Drug form: INJ, ONCE, Stop date: 01/05/18 18:29:00 CDT Start Date: 01/05/18 Stop Date: 01/05/18 Status: Completed ondansetron 4 mg oral tablet 4 mg=1 tab, PO, Q8H, # 10 tab, 0 Refill(s), Pharmacy: [facility] [id number] Start Date: 01/08/18 Status: Ordered oxyCODONE 5 mg oral tablet 5 mg, 1 tab, Route: PO, Drug form: TAB, Q4H, Dosing Weight 111.818, kg, PRN Pain Score 4-6, Start date: 01/07/18 6:26:00 CDT, Duration: 30 day, Stop date: 02/06 6:25:00 CDT Notes: (Same as: Roxicodone) Start Date: 01/07/18 Stop Date: 01/08/18 Status: Discontinued propofol (ANES) Route: IV, Drug form: INJ, ONCE, Stop date: 01/05/18 15:41:00 CDT Start Date: 01/05/18 Stop Date: 01/05/18 Status: Completed propofol (ANES) Route: IV, Drug form: INJ, ONCE, Stop date: 01/05/18 18:39:00 CDT Start Date: 01/05/18 Stop Date: 01/05/18 Status: Completed Reglan 10 mg, 1 tab, Route: PO, Drug form: TAB, Q6H, Dosing Weight 111.818, kg, PRN Robby sea, Start date: 01/05/18 20:11:00 CDT, Duration: 30 day, Stop date: 02/04/18 20 :10:00 CDT Notes: (Same as: Reglan) Take 30 min before meals Start Date: 01/05/18 Stop Date: 01/08/18 Status: Discontinued remove patch 1 patch, Route: TOP, Drug form: ERFILM, ONCE, Start date: 01/06/18 11:44:00 CDT, Stop date: 01/06/18 11:44:00 CDT Notes: Remove old patch before application of new patch. Start Date: 01/06/18 Stop Date: 01/06/18 Status: Completed rocuronium (ANES) Route: IV, Drug form: INJ, ONCE, Stop date: 01/05/18 15:41:00 CDT Start Date: 01/05/18 Stop Date: 01/05/18 Status: Completed rocuronium (ANES) Route: IV, Drug form: INJ, ONCE, Stop date: 01/05/18 17:09:00 CDT Start Date: 01/05/18 Stop Date: 01/05/18 Status: Completed Ropivacaine 0.1% + fentaNYL 2 mcg/ml Epidural CADD 200 mL Route: EPIDURAL, Continuous Rate: 8, ml/hr, Infusion site: Thoracic, RIB CLOTH KNITTER dose 3 mL, RIB CL[facility] KNITTER dose lockout: 30 minutes, 1 Hour limit: 13 mL, 200, mL, Start date: 12/12 02/27 21:03:00 CDT, Duration: 30, day, Drug Form: INJ, Total volume: 200, mL, kg, Stop date:... Notes: (Same as Naropin-Sublimaze) Start Date: 01/05/18 Stop Date: 01/08/18 Status: Discontinued Ropivacaine 0.2% + fentaNYL 2 mcg/ml Epidural CADD 200 mL Route: EPIDURAL, Continuous Rate: 8, ml/hr, Infusion site: Thoracic, RIB [facility]ITTER dose 3 mL, RIB CLOTH KNITTER dose lockout: 30 minutes, 1 Hour limit: 14 mL, 200, mL, Start date: 12/12 02/27 15:36:00 CDT, Duration: 30, day, Drug Form: INJ, Total volume: 200, mL, kg, Stop date:... Notes: (Same as Naropin-Sublimaze) Start Date: 01/05/18 Stop Date: 01/06/18 Status: Discontinued scopolamine 1.5 mg transdermal film 1 patch, Route: TOP, Drug Form: ERFILM, kg, PRE OP, Start date: 01/05/18 5:00:00 CDT, Duration: 30 day, Stop date: 02/04/18 4:59:00 CDT Notes: Change patch every 72 hours (Same as: Transderm-Scop) Start Date: 01/05/18 Stop Date: 01/05/18 Status: Completed simethicone 160 mg, 2 tab, Route: CHEW, Drug form: CHEWTAB, QID, Dosing Weight 111.818, kg, PRN Gas, Start date: 01/05/18 20:11:00 CDT, Duration: 30 day, Stop date: 8 20:10:00 CDT Notes: (Same as: Dotty) Start Date: 01/05/18 Stop Date: 01/08/18 Status: Discontinued simvastatin 10 mg, PO, Bedtime Start Date: 01/03/18 Stop Date: 01/06/18 Status: Discontinued simvastatin 10 mg oral tablet 10 mg=1 tab, PO, Bedtime, 0 Refill(s) Start Date: 01/06/18 Status: Ordered Sodium Chloride 0.9% IV (ANES) 1000 mL Route: IV, Total Volume: 1,000, Start date: 01/05/18 16:30:00 CDT, Stop date: 17:30:00 CDT Start Date: 01/05/18 Stop Date: 01/05/18 Status: Completed tramadol 100 mg, 2 tab, Route: PO, Drug form: TAB, Q6Hnow, Dosing Weight 111.818, kg, Sta rt date: 01/07/18 7:00:00 CDT, Duration: 30 day, Stop date: 02/06/18 1:00:00 CDT Notes: Not to exceed 400mg/day. (Same As: Ultram) Start Date: 01/07/18 Stop Date: 01/08/18 Status: Discontinued tramadol 100 mg, 2 tab, Route: PO, Drug form: TAB, Q6Hnow, Dosing Weight 111.818, kg, PRN Pain Score 7-10, Start date: 01/05/18 15:34:00 CDT, Duration: 30 day, Stop date: 02/04/18 15:33:00 CDT Notes: Not to exceed 400mg/day. (Same As: Ultram) Start Date: 01/05/18 Stop Date: 01/07/18 Status: Discontinued tramadol 50 mg, 1 tab, Route: PO, Drug form: TAB, Q6H, Dosing Weight 111.818, kg, PRN Joseph n Score 4-6, Start date: 01/05/18 15:34:00 CDT, Duration: 30 day, Stop date: 15:33:00 CDT Notes: Not to exceed 400mg/day. (Same As: Ultram) Start Date: 01/05/18 Stop Date: 01/07/18 Status: Discontinued tramadol 50 mg oral tablet 100 mg=2 tab, PO, Q6Hnow, # 50 tab, 0 Refill(s) Start Date: 01/08/18 Stop Date: 02/07/18 Status: Ordered Vitamin C 500 mg, PO, BID Start Date: 01/03/18 Status: Ordered Zofran 4 mg, 1 tab, Route: PO, Drug form: TAB, Q6H, Dosing Weight 111.818, kg, PRN Naus ea, Start date: 01/05/18 20:11:00 CDT, Duration: 30 day, Stop date: 02/04/18 20: 10:00 CDT Notes: (Same as: Zofran) Start Date: 01/05/18 Stop Date: 01/05/18 Status: Discontinued Zofran 4 mg, 1 tab, Route: PO, Drug form: TAB, Q8H, Dosing Weight 111.818, kg, Start da te: 01/06/18 0:00:00 CDT, Duration: 30 day, Stop date: 02/04/18 16:00:00 CDT Notes: (Same as: Zofran) Start Date: 01/06/18 Stop Date: 01/08/18 Status: Discontinued Results BLOOD BANK RESULTS 1 2 3 Most recent to oldest [Reference Range]: O POS *Unknown* (01/05/18 11:24 AM) ABO/Rh Negative (01/05/18 11:24 AM) Antibody Scrn Product available (01/07/18 3:21 PM) RBC product ELECTROLYTES 1 2 3 Most recent to oldest [Reference Range]: 141 mEq/L (01/08/18 3:52 AM) 141 mEq/L (01/07/18 4:05 AM) 138 mEq/L (01/06/18 6:16 AM) Sodium Lvl [135-145 mEq/L] 4.4 mEq/L (01/08/18 3:52 AM) 4.4 mEq/L (01/07/18 4:05 AM) 4.7 mEq/L (01/06/18 6:16 AM) Potassium Lvl [3.5-5.1 mEq/L] 108 mEq/L (01/08/18 3:52 AM) 107 mEq/L (01/07/18 4:05 AM) 107 mEq/L (01/06/18 6:16 AM) Chloride Lvl [95-109 mEq/L] 27 mEq/L (01/08/18 3:52 AM) 28 mEq/L (01/07/18 4:05 AM) 25 mEq/L (01/06/18 6:16 AM) CO2 [24-32 mEq/L] 10.4 mEq/L (01/08/18 3:52 AM) 10.4 mEq/L (01/07/18 4:05 AM) 10.7 mEq/L (01/06/18 6:16 AM) AGAP [10.0-20.0 mEq/L] CHEM PANEL 1 2 3 Most recent to oldest [Reference Range]: 0.59 mg/dL (01/08/18 3:52 AM) 0.88 mg/dL (01/07/18 4:05 AM) 0.87 mg/dL (01/06/18 6:16 AM) Creatinine Lvl [0.50-1.40 mg/dL] 107 mL/min/1.73m2 1 *NA* (01/08/18 3:52 AM) 77 mL/min/1.73m2 2 *NA* (01/07/18 4:05 AM) 78 mL/min/1.73m2 3 *NA* (01/06/18 6:16 AM) eGFR 10 mg/dL (01/08/18 3:52 AM) 15 mg/dL (01/07/18 4:05 AM) 14 mg/dL (01/06/18 6:16 AM) BUN [7-22 mg/dL] 17 (01/08/18 3:52 AM) 17 (01/07/18 4:05 AM) 16 (01/06/18 6:16 AM) B/C Ratio [6-25] 103 mg/dL *HI* (01/08/18 3:52 AM) 107 mg/dL *HI* (01/07/18 4:05 AM) 173 mg/dL *HI* (01/06/18 6:16 AM) Glucose Lvl [70-99 mg/dL] 5.4 g/dL *LOW* (01/08/18 3:52 AM) 5.4 g/dL *LOW* (01/07/18 4:05 AM) 5.5 g/dL *LOW* (01/06/18 6:16 AM) Total Protein [6.4-8.4 g/dL] 2.2 g/dL *LOW* (01/08/18 3:52 AM) 2.3 g/dL *LOW* (01/07/18 4:05 AM) 2.3 g/dL *LOW* (01/06/18 6:16 AM) Albumin Lvl [3.5-5.0 g/dL] 3.2 g/dL (01/08/18 3:52 AM) 3.1 g/dL (01/07/18 4:05 AM) 3.2 g/dL (01/06/18 6:16 AM) Globulin [2.7-4.2 g/dL] 0.7 (01/08/18 3:52 AM) 0.7 (01/07/18 4:05 AM) 0.7 (01/06/18 6:16 AM) A/G Ratio [0.7-1.6] 7.9 mg/dL *LOW* (01/08/18 3:52 AM) 8.0 mg/dL *LOW* (01/07/18 4:05 AM) 7.9 mg/dL *LOW* (01/06/18 6:16 AM) Calcium Lvl [8.5-10.5 mg/dL] 3.2 mg/dL (01/08/18 3:52 AM) 3.1 mg/dL (01/07/18 4:05 AM) 4.1 mg/dL (01/06/18 6:16 AM) Phosphorus [2.5-4.5 mg/dL] 2.2 mg/dL (01/08/18 3:52 AM) 2.1 mg/dL (01/07/18 4:05 AM) 2.0 mg/dL (01/06/18 6:16 AM) Magnesium Lvl [1.8-2.4 mg/dL] 12 unit/L (01/08/18 3:52 AM) 12 unit/L (01/07/18 4:05 AM) 12 unit/L (01/06/18 6:16 AM) ALT [0-65 unit/L] 10 unit/L (01/08/18 3:52 AM) 10 unit/L (01/07/18 4:05 AM) 8 unit/L (01/06/18 6:16 AM) AST [0-37 unit/L] 49 unit/L (01/08/18 3:52 AM) 53 unit/L (01/07/18 4:05 AM) 51 unit/L (01/06/18 6:16 AM) Alk Phos [39-136 unit/L] 0.3 mg/dL (01/08/18 3:52 AM) 0.1 mg/dL *LOW* (01/07/18 4:05 AM) 0.2 mg/dL (01/06/18 6:16 AM) Bili Total [0.2-1.3 mg/dL] 1Result Comment: The eGFR is calculated using [...] be mul tiplied by the estimated BMI. 3Result Comment: The eGFR is calculated using the [...] mul tiplied by the estimated BMI. HEMATOLOGY 1 2 3 Most recent to oldest [Reference Range]: 7.7 K/CMM (01/08/18 3:52 AM) 11.3 K/CMM *HI* (01/07/18 4:05 AM) 16.1 K/CMM *HI* (01/06/18 6:16 AM) WBC [3.7-10.4 K/CMM] 3.22 M/CMM *LOW* (01/08/18 3:52 AM) 2.63 M/CMM *LOW* (01/07/18 4:05 AM) 3.22 M/CMM *LOW* (01/06/18 6:16 AM) RBC [4.20-5.40 M/CMM] 8.7 g/dL *LOW* (01/08/18 3:52 AM) 6.9 g/dL 1 *CRIT* (01/07/18 4:05 AM) 8.6 g/dL *LOW* (01/06/18 6:16 AM) Hgb [12.0-16.0 g/dL] 26.8 % *LOW* (01/08/18 3:52 AM) 21.5 % *LOW* (01/07/18 4:05 AM) 26.0 % *LOW* (01/06/18 6:16 AM) Hct [36.0-48.0 %] 83.2 fL (01/08/18 3:52 AM) 81.7 fL (01/07/18 4:05 AM) 80.5 fL (01/06/18 6:16 AM) MCV [80.0-98.0 fL] 27.0 pg (01/08/18 3:52 AM) 26.2 pg *LOW* (01/07/18 4:05 AM) 26.6 pg *LOW* (01/06/18 6:16 AM) MCH [27.0-31.0 pg] 32.5 g/dL (01/08/18 3:52 AM) 32.0 g/dL (01/07/18 4:05 AM) 33.0 g/dL (01/06/18 6:16 AM) MCHC [32.0-36.0 g/dL] 15.0 % *HI* (01/08/18 3:52 AM) 14.9 % *HI* (01/07/18 4:05 AM) 14.4 % (01/06/18 6:16 AM) RDW [11.5-14.5 %] 7.6 fL (01/08/18 3:52 AM) 8.0 fL (01/07/18 4:05 AM) 7.9 fL (01/06/18 6:16 AM) MPV [7.4-10.4 fL] 270 K/CMM (01/08/18 3:52 AM) 296 K/CMM (01/07/18 4:05 AM) 347 K/CMM (01/06/18 6:16 AM) Platelet [133-450 K/CMM] 71.1 % (01/08/18 3:52 AM) 81.0 % *HI* (01/07/18 4:05 AM) 92.3 % *HI* (01/06/18 6:16 AM) Segs [45.0-75.0 %] 19.5 % *LOW* (01/08/18 3:52 AM) 13.2 % *LOW* (01/07/18 4:05 AM) 4.0 % *LOW* (01/06/18 6:16 AM) Lymphocytes [20.0-40.0 %] 6.6 % (01/08/18 3:52 AM) 4.9 % (01/07/18 4:05 AM) 3.7 % (01/06/18 6:16 AM) Monocytes [2.0-12.0 %] 2.5 % (01/08/18 3:52 AM) 0.6 % (01/07/18 4:05 AM) 0.1 % (01/05/18 8:54 PM) Eosinophils [0.0-4.0 %] 0.3 % (01/08/18 3:52 AM) 0.3 % (01/07/18 4:05 AM) 0.2 % (01/05/18 8:54 PM) Basophils [0.0-1.0 %] 5.5 K/CMM (01/08/18 3:52 AM) 9.2 K/CMM *HI* (01/07/18 4:05 AM) 14.9 K/CMM *HI* (01/06/18 6:16 AM) Segs-Bands # [1.5-8.1 K/CMM] 1.5 K/CMM (01/08/18 3:52 AM) 1.5 K/CMM (01/07/18 4:05 AM) 0.6 K/CMM *LOW* (01/06/18 6:16 AM) Lymphocytes # [1.0-5.5 K/CMM] 0.5 K/CMM (01/08/18 3:52 AM) 0.6 K/CMM (01/07/18 4:05 AM) 0.6 K/CMM (01/06/18 6:16 AM) Monocytes # [0.0-0.8 K/CMM] 0.2 K/CMM (01/08/18 3:52 AM) 0.1 K/CMM (01/07/18 4:05 AM) Eosinophils # [0.0-0.5 K/CMM] Slight *NA* (01/06/18 6:16 AM) Polychrom Normal (01/06/18 6:16 AM) Plt Morph 1Result Comment: Critical Result(s) called to Jonna Cotto at 01/07/2018 06:16 by Leann. Read back OK. Immunizations No data available for this section Procedures Procedure Date Related Diagnosis Body Site Status Biopsy of vulva Completed section Completed Social History Social History Type Response Substance Abuse Use: None. Alcohol Past, Frequency: 1-2 times per year. Previous treatment: None.1 Smoking Status Never smoker; Exposure to Tobacco Smoke None; Cigarette Smoking Last 365 Days No; Reg Smoking Cessation Counseling No entered on: 01/05/18 1very rare Assessment and Plan Extracted from: Title: SOLUTIONS SPECIALIST Oncology Discharge Author: Lori Ceja Date: 01/08/18 Summary [facility] SOLUTIONS SPECIALIST Oncology Discharge Summary Patient: Louise Denton MD, PGY-2 Dr. Lori Ceja MD, Attending Physician Date of Admission: 01/05/18 Date of Discharge: 01/08/18 Admission Diagnosis: 1. Adenocarcinoma of the uterus 2. Adnexal mass 3. Elevated CA 125 4. Hypertension 5. Obesity Discharge Diagnosis 1. Adenocarcinoma of the uterus 2. Adnexal mass 3. Elevated CA 125 4. Hypertension 5. Obesity Procedure Performed: Exploratory laparotomy, total abdominal hysterectomy, bilateral salpingo-oophorectomy, lysis of adhesions, pelvic dissection of large pelvic mass, cystoscopy, pelvic and para-aortic lymph node dissection, omentectomy Complications: none Consultation: none History of Present Illness: Patient is a 52 y/o white female with endometrioid adenocarcinoma of the uterus, 25cm adnexal mass, and elevated CA 125 who originally presented for her scheduled hysterectomy. She underwent an exploratory laparotomy, total abdominal hysterectomy, bilateral salpingo-oophorectomy, lysis of adhesions, pelvic dissection of large pelvic mass, cystoscopy, pelvic and para-aortic lymph node dissection, and omentectomy. The procedure was complicated by a blood loss of 1200cc that required a transfusion of 2U PRBCs intraoperatively. Frozen pathology showed endometrioid adenocarcinoma of the uterus.See operative note for further details. Patient's postoperative course was complicated by acute on chronic blood loss anemia with a hemoglobin of 6.9 that required transfusion of another 2U PRBCs. Her post-operative course was otherwise uncomplicated. At discharge she was meeting all post-operative milestones. Her pain was well controlled. She was tolerating a regular diet without nausea or vomiting and passing flatus. She was voiding & ambulating without difficulty. The decision was made to not start the patient on Lovenox in house or upon discharge given her drop in hemoglobin postoperatively. Disposition Discharge: home Follow-up appointment: Dr. Baugh in 2 wks for postoperative follow up Instructions: pelvic rest & no heavy lifting x6 weeks, regular diet Discharge medications: see home medication reconciliation form Leslie Denton, PGY-2 chart reviewed, pt examined. agree with Dr. Denton's note. Extracted from: Title: SOLUTIONS SPECIALIST Onc Progress Note Author: Lori Ceja Date: 01/08/18 Nano [facility] Progress Note - Daily [facility] Completed: Dec, 06:55 by Leslie Denton MD RM: [id number] - 01, 3JPMTUSCARORALOUISE DENTENE52y (: 1965) F Attending: Chel Baugh MDPhone: Service: Hand Sign Writer Service Reason for Admission: UTERINE CANCER Working DRG: None Documented Code status: Full Code [Ordered]Current diet: Diabetic diet Isolation: No Isolation/Standard Precautions Allergies: NKDA SUBJECTIVE Doing well this morning with no complaints. Pain is well controlled, she is ambulating, passing flatus, voiding freely, and tolerating a regular diet. OBJECTIVE VitalsTmp(F)[id number] 01/08 03:[id number]--- 01/07 23:0098.932088/[id number]--- 01/07 19:0098.609415/285660--- 01/07 16:0798.082885/027776--- 01/07 12:0698.458100/990188--- 24 Hr Tmax: 98.7F (37.06c) at 01/07 23:00Vital Signs are the last 5 in the past 48 hours. 24hr Labs 01/08 0352 Magnesium Lvl2.2 Phosphorus3.2 Sodium Hdl258 Potassium Lvl4.4 Chloride Ldd948 CO227 AGAP10.4 Glucose Vvw274 H Creatinine Lvl0.59 BUN10 B/C Ratio17 Total Protein5.4 L Albumin Lvl2.2 L Globulin3.2 A/G Ratio0.7 Calcium Lvl7.9 L ALT12 AST10 Alk Phos49 Bili Total0.3 cNFW268 WBC7.7 RBC3.22 L Hgb8.7 L Hct26.8 L MCV83.2 MCH27.0 MCHC32.5 RDW15.0 H Ocdrehte208 MPV7.6 Segs71.1 Monocytes6.6 Jsiauxhqgbs29.5 L Eosinophils2.5 Basophils0.3 Segs-Bands #5.5 Lymphocytes #1.5 Monocytes #0.5 Eosinophils #0.2 01/07 2103 POC Performing LocatioSee Note Glucose PDX141 H 01/07 1715 POC Performing LocatioSee Note Glucose SGM677 H 01/07 1521 RBC productProduct available 01/07 1204 POC Performing LocatioSee Note Glucose HRK362 H 01/07 0748 POC Performing LocatioSee Note Glucose RGJ392 H 01/05 1124 XM EXM InterpCompatible XM EXM InterpCompatible DateWt(kg)Wt(lb)Ht(cm)Ht(in)Method 01/05 (initial)111.82 246.00Measured 72.72 68.00Stated I&ORecordInOutBal 12/2823hr Tot 1020 500 520 12/2723hr Tot 1711999 - Medications (25) Active Scheduled Meds (8): 01/06/18 NIFEdipine (NIFEdipine 30 mg oral tablet, extended release) 30 mg PO Daily 01/05/18 acetaminophen 1,000 mg PO Q6H 01/05/18 celecoxib 200 mg PO Q12H 01/05/18 docusate-senna (docusate-senna 50 mg-8.6 mg oral tablet) 2 tab PO Q12H 01/05/18 gabapentin 300 mg PO Q8H 01/06/18 magnesium gluconate 500 mg PO BID 01/06/18 ondansetron (Zofran) 4 mg PO Q8H 01/07/18 tramadol 100 mg PO Q6Hnow Unscheduled Meds: None PRN Meds (16): 01/06/18 Dextrose 50% in Water IV (Dextrose 50% Syringe) 12.5 gm IVP PRN 01/06/18 Dextrose 50% in Water IV (Dextrose 50% Syringe) 25 gm IVP PRN 01/06/18 glucagon 1 mg IM PRN 01/06/18 insulin lispro 2 unit SUB-Q TID-Before Meals 01/06/18 insulin lispro 4 unit SUB-Q TID-Before Meals 01/06/18 insulin lispro 6 unit SUB-Q TID-Before Meals 01/06/18 insulin lispro 8 unit SUB-Q TID-Before Meals 01/06/18 insulin lispro 10 unit SUB-Q TID-Before Meals 01/06/18 insulin lispro 1 unit SUB-Q Bedtime 01/06/18 insulin lispro 2 unit SUB-Q Bedtime 01/06/18 insulin lispro 3 unit SUB-Q Bedtime 01/06/18 insulin lispro 4 unit SUB-Q Bedtime 01/05/18 metoclopramide (Reglan) 10 mg PO Q6H 01/05/18 naloxone 0.1 mg IVP Q2MIN 01/07/18 oxyCODONE (oxyCODONE 5 mg oral tablet) 5 mg PO Q4H 01/05/18 simethicone 160 mg CHEW QID One Time Meds: None Continuous Infusions (1): 01/05/18 fentaNYL-ropivacaine 200 mL (Ropivacaine 0.1% + fentaNYL 2 mcg/ml Epidural CADD 200 mL) 200 mL 8 ml/hr Physical Exam: Gen: NAD CV: RRR Lungs: CTAB, respirations unlabored Abdomen: soft, nontender, non-distended, no guarding or rebound, +bowel sounds Incision: c/d/i with dressing in place Extremities: nontender to palpation, SCDs in place ASSESSMENT & PLAN 52 yo WF with uterine cancer who is POD#3 s/p XL, TIGRE, BSO, staging 2/2 endometrioid adenocarcinoma of the uterus, doing well. 1. Uterine cancer - S/p EMB with FIGO grade 1-2, CA125 100 - S/p surgical management as above, frozen pathology showing endometrioid adenocarcinoma with final pathology pending 2. POD#3 - AFVSS - Hb 7.2 > EBL 1100 cc + 2U PRBCs > 9.4 immediately postop -> 8.6 -> 6.9 -> 2U PRBCs -> 8.7. No s/sx of anemia currently. - Pain: s/p epidural, controlled on PO pain meds - GI: tolerating diabetic diet - : voiding freely 3. T2DM - Not on any medications - BG all < 200 house, written for ISS 4. HTN - Procardia 30 mg XL daily, currently normotensive 5. Prophylaxis - SCDs/TEDs - Will not start Lovenox given drop in hemoglobin after surgery; will not discharge home with Lovenox either 6. Code status - Full Dispo: stable for discharge home today Pt seen and discussed with Dr. Marcial Denton MD PGY-2 chart reviewed, pt examined. agree with DR. Denton's note. Extracted from: Title: APMS Consult Note Author: Alyssa Beck MD Date: 01/06/18 Patient: LOUISE MURPHY Age: 52 years Sex: Female : 1965 Associated Diagnoses: None Author: Alyssa Beck MD Basic Information Referral source Reason for consultation: Complex Acute Pain Chief Complaint 01/05/2018 11:26 uterine cancer complex pain History of Present Illness The patient presents with Location: abdomen Quality: sharp Severity: 4 Timing: minutes Duration: intermittent Context: post-op Modifying factors: movement 52 yo F s/p ex-lap TIGRE, BLSO s/p T9 epidural. APMS following for catheter management. . Histories Past Medical History: No active or resolved past medical history items have been selected or recorded. Family History: Hypertension Father Heart disease Father Cancer, Breast Sister Cancer, Pancreatic Mother Procedure history: section ([id number]). Biopsy of vulva ([id number]). Social History Social & Psychosocial Habits Alcohol 01/05/2018 Use: Past Frequency: 1-2 times per year Previous treatment: None Comment: very rare - 01/05/2018 23:32 - Ginger Green RN Substance Abuse 01/05/2018 Use: None Tobacco 01/05/2018 Use: Never smoker Exposure to Tobacco Smoke None Cigarette Smoking Last 365 Days No Reg Smoking Cessation Counseling No . Health Status Allergies: Allergic Reactions (All) Severity Not Documented NKDA- No reactions were documented., Allergies (1) ActiveReaction NKDANone Documented Current medications: (Selected) Inpatient Medications Ordered Dextrose 50% Syringe: 12.5 gm, 25 mL, IVP, PRN, PRN: Blood Glucose Results Dextrose 50% Syringe: 25 gm, 50 mL, IVP, PRN, PRN: Blood Glucose Results NIFEdipine 30 mg oral tablet, extended release: 30 mg, 1 tab, PO, Daily Reglan: 10 mg, 1 tab, PO, Q6H, PRN: Nausea Ropivacaine 0.1% + fentaNYL 2 mcg/ml Epidural CADD 200 mL: 8 ml/hr, EPIDURAL, Stop: 02/04/18 21:02:00 CDT Zofran: 4 mg, 1 tab, PO, Q8H acetaminophen: 1,000 mg, 2 tab, PO, Q6H celecoxib: 200 mg, 1 cap, PO, Q12H docusate-senna 50 mg-8.6 mg oral tablet: 2 tab, PO, Q12H gabapentin: 300 mg, 1 cap, PO, Q8H glucagon: 1 mg, IM, PRN, PRN: Blood Glucose Results insulin lispro: 1 unit, 0.01 mL, SUB-Q, Bedtime, PRN: Blood Glucose Results insulin lispro: 10 unit, 0.1 mL, SUB-Q, TID-Before Meals, PRN: Blood Glucose Results insulin lispro: 2 unit, 0.02 mL, SUB-Q, Bedtime, PRN: Blood Glucose Results insulin lispro: 2 unit, 0.02 mL, SUB-Q, TID-Before Meals, PRN: Blood Glucose Results insulin lispro: 3 unit, 0.03 mL, SUB-Q, Bedtime, PRN: Blood Glucose Results insulin lispro: 4 unit, 0.04 mL, SUB-Q, Bedtime, PRN: Blood Glucose Results insulin lispro: 4 unit, 0.04 mL, SUB-Q, TID-Before Meals, PRN: Blood Glucose Results insulin lispro: 6 unit, 0.06 mL, SUB-Q, TID-Before Meals, PRN: Blood Glucose Results insulin lispro: 8 unit, 0.08 mL, SUB-Q, TID-Before Meals, PRN: Blood Glucose Results magnesium gluconate: 500 mg, 1 tab, PO, BID naloxone: 0.1 mg, 0.25 mL, IVP, Q2MIN, PRN: Narcotic Reversal remove patch: 1 patch, TOP, ONCE simethicone: 160 mg, 2 tab, CHEW, QID, PRN: Gas tramadol: 100 mg, 2 tab, PO, Q6Hnow, PRN: Pain Score 7-10 tramadol: 50 mg, 1 tab, PO, Q6H, PRN: Pain Score 4-6 Documented Medications Suspended Aleve: 220 mg, PO, PRN NIFEdipine 30 mg oral tablet, extended release: 30 mg, 1 tab, PO, Daily Vitamin C: 500 mg, PO, BID ferrous sulfate: 65 mg, PO, BID simvastatin: 10 mg, PO, Bedtime, Medications (26) Active Scheduled: (8) acetaminophen 500 mg TAB 1,000 mg 2 tab, PO, Q6H celecoxib 200 mg CAP 200 mg 1 cap, PO, Q12H docusate-senna 50-8.6 mg TAB 2 tab, PO, Q12H gabapentin 300 mg CAP 300 mg 1 cap, PO, Q8H magnesium gluconate (27 mg elemental) TAB 500 mg 1 tab, PO, BID NIFEdipine 30 mg ERTAB 30 mg 1 tab, PO, Daily ondansetron 4 mg TAB 4 mg 1 tab, PO, Q8H scopolamine patch removal 1 patch, TOP, ONCE Continuous: (1) Ropivacaine 0.1% - FENTanyl 2microgram/ml 200ml CADD 200 mL 200 mL, EPIDURAL, 8 ml/hr PRN: (17) Dextrose 50% 50 ml INJ syringe 12.5 gm 25 mL, IVP, PRN Dextrose 50% 50 ml INJ syringe 25 gm 50 mL, IVP, PRN glucagon recombinant 1 mg PDR 1 mg, IM, PRN insulin lispro 100 unit/ml 3 ml Vial 2 unit 0.02 mL, SUB-Q, TID-Before Meals insulin lispro 100 unit/ml 3 ml Vial 4 unit 0.04 mL, SUB-Q, TID-Before Meals insulin lispro 100 unit/ml 3 ml Vial 6 unit 0.06 mL, SUB-Q, TID-Before Meals insulin lispro 100 unit/ml 3 ml Vial 8 unit 0.08 mL, SUB-Q, TID-Before Meals insulin lispro 100 unit/ml 3 ml Vial 10 unit 0.1 mL, SUB-Q, TID-Before Meals insulin lispro 100 unit/ml 3 ml Vial 1 unit 0.01 mL, SUB-Q, Bedtime insulin lispro 100 unit/ml 3 ml Vial 2 unit 0.02 mL, SUB-Q, Bedtime insulin lispro 100 unit/ml 3 ml Vial 3 unit 0.03 mL, SUB-Q, Bedtime insulin lispro 100 unit/ml 3 ml Vial 4 unit 0.04 mL, SUB-Q, Bedtime metoclopramide 10 mg TAB 10 mg 1 tab, PO, Q6H naloxone 0.4 mg/ml 1ml INJ vial 0.1 mg 0.25 mL, IVP, Q2MIN simethicone 80 mg CHEW 160 mg 2 tab, CHEW, QID traMADol 50 mg TAB 50 mg 1 tab, PO, Q6H traMADol 50 mg TAB 100 mg 2 tab, PO, Q6Hnow Problem list: No qualifying data available Review of Systems Constitutional: Negative except as documented in history of present illness. Cardiovascular: Negative except as documented in history of present illness. Ear/Nose/Mouth/Throat: Negative except as documented in history of present illness. Respiratory: Negative except as documented in history of present illness. Gastrointestinal: Negative except as documented in history of present illness. Musculoskeletal: Negative except as documented in history of present illness. Neurologic: Negative except as documented in history of present illness. Psychiatric: Negative except as documented in history of present illness. Endocrine: Negative except as documented in history of present illness. Hematology/Lymphatics: Negative except as documented in history of present illness. Physical Examination VS/Measurements Measurements from flowsheet : Measurements 01/05/2018 23:27 Heparin Dosing Weight (kg) 83.07 01/05/2018 23:26 Height 172.72 cm Height Collection Method Stated Weight 111.818 kg Dosing Weight Difference Percent 0 % Dosing Weight Collection Method Estimated Body Surface Area 2.3162 m2 Body Mass Index 37.48 m2 01/05/2018 11:34 Heparin Dosing Weight (kg) 83.07 01/05/2018 11:33 Height 172.72 cm Height Collection Method Stated Weight 111.818 kg Dosing Weight Collection Method Measured Body Surface Area 2.3162 m2 Body Mass Index 37.48 m2 , Vital Signs (last 24 hrs) Last Charted Temp Oral98.9 DegF (JAN 06 07:32) Heart Rate Wneadneqlu10 bpm (JAN 06 07:32) Resp Rate 18 BRMIN (JAN 06 07:32) MSI455 mmHg (JAN 06 07:32) DBP63 mmHg (JAN 06 07:32) HkW208 % (JAN 06 07:32) Qnsgmc901.81 kg (JAN 05 23:) Tetjjy167.72 cm (JAN 05 23:) BMI37.48 (JAN 05 23:) General: Alert and oriented. Eye: Pupils are equal, round and reactive to light. Respiratory: Symmetrical chest wall expansion. Cardiovascular: Normal peripheral perfusion. Musculoskeletal Normal range of motion. Integumentary: Warm, Dry. Neurologic: Alert, Oriented. Cognition and Speech: Oriented, Speech clear and coherent. Psychiatric: Cooperative, Appropriate mood & affect. Review / Management Results review: Labs (Last four charted values) WBC H 16.1(JAN 06)H 18.1(JAN 05) Hgb L 8.6(JAN 06)L 9.4(JAN 05) Hct L 26.0(JAN 06)L 28.2(JAN 05) Plt 347(JAN 06)384(JAN 05) Na 138(JAN 06)139(JAN 05) K 4.7(JAN 06)4.9(JAN 05) CO2 25(JAN 06)24(JAN 05) Cl 107(JAN 06)108(JAN 05) Cr 0.87(JAN 06)1.00(JAN 05) BUN 14(JAN 06)12(JAN 05) Glucose Random H 173(JAN 06)H 193(JAN 05) Mg 2.0(JAN 06) Phos 4.1(JAN 06) Ca L 7.9(JAN 06)L 7.8(JAN 05). Chest x-ray results ECG interpretation Impression and Plan Diagnosis Orders Education and Follow-up: Counseled: Regarding treatment, Regarding medications. 52 yo F s/p ex-lap TIGRE, BLSO s/p T9 epidural. APMS following for catheter management. On encounter patient states current pain regimen is tolerable and is not complaining of any sensorimotor deficits throughout block area. - APMS will clamp epidural tomorrow morning (01/07) and if patient's pain is still tolerable it will be discontinued APMS will follow, please call [phone] with questions Alyssa Beck MD PGY-3 Anesthesia Addendum TEACHING PHYSICIAN ADDENDUM: I saw and personally examined this patient and discussed the by plan of care with this resident. I have reviewed the note below and agree with the [place], history, examination findings and the plan of care. Jayant Barnett MD on 01/07/2018 10:27 Extracted from: Title: SOLUTIONS SPECIALIST Oncology Pre-Op H&P Author: Chel Baugh Date: 01/05/18 R2 SOLUTIONS SPECIALIST Oncology Pre-Op H&P Reason For Visit Here for surgery History of Present Illness HPI Ms. Murphy is a 52 y/o white female with uterine cancer who presents for her scheduled surgery. She is doing well today with no complaints. She desires to proceed with surgery today. Interval history: Patient Jack is a 52 yo Female LMP 12/25/17 duration 10-12 days. Patient referred to Dr. Baugh by Dr. Coles at [facility] OB-SOLUTIONS SPECIALIST. Patient had transvaginal US and Biopsy November 01, 2017 revealing Uterine Cancer. Patient reports in Fall 2014 having Endometrial Biopsy by Dr. Maynard in [place] due to spotting. Over the course of 1.5 years she reports having vaginal bleeding which has interrupted her Activities and lifestyle. 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 Pain 2/10 however highest 7-8/10 on pain scale 0-10. Review of Systems Const: recent weight loss, butno feverandno chills. EENT: no vision changes, no tinnitus, butno vision changes. CV: no chest pain, no palpitations, butno chest pain or discomfortandno palpitations. Resp: no SOB, no cough, no wheezing, butno shortness of breath,no coughandno wheezing. GI: constipation,abdominal pain,bloatinganddecreased appetite, butno diarrheaandno nausea. Skin: skin lesion, butno rash. : urinary frequency,pelvic painandnonmenstrual bleeding, butno feelings of urinary urgency,no dysuria,no hematuria,no bladder painandno dyspareunia. Musc: generalized painandfeeling weak. Neuro: no numbness, no tingling, no burning sensations, good coordination, butno numbness,no tingling,no burning sensationandgood coordination. Psych: depression. Active Problems Uterine cancer (179) (C55) Past Medical History History of diabetes mellitus (V12.29) (Z86.39) History of high cholesterol (V12.29) (Z86.39) History of hypertension (V12.59) (Z86.79) History of Mass (782.2) (R22.9) Surgical History History of section History of Oral surgery History of Vulvar biopsy Family History Family history of : Maternal Grandmother, Paternal Grandmother, Maternal Grandfather, Paternal Grandfather Family history of congestive heart failure (V17.49) (Z82.49) : Father Family history of hypertension (V17.49) (Z82.49) : Father Family history of malignant neoplasm of breast (V16.3) (Z80.3) : Sister Family history of pancreatic cancer (V16.0) (Z80.0) : Mother Family history of throat cancer (V16.0) (Z80.0) : Paternal Grandfather FHx: breast cancer (V16.3) (Z80.3) : Sister FHx: uterine cancer (V16.49) (Z80.49) : Aunt Family history of High cholesterol : Father Gynecological History Prior pregnancies: : 1. Para: 1 (living). The last menstrual period began 12/25/17 and Duration 10-12 days. Current menstrual history includes irregular menstrual cycles. Social History Does not use illicit drugs (V49.89) (Z78.9) Employed No alcohol use Non-smoker (V49.89) (Z78.9) Current Meds medication list reconciled and reviewed Iron TABS; Therapy: (Recorded:28Dec2017) to Recorded Nifedical XL 30 MG TB24; Therapy: (Recorded:28Dec2017) to Recorded Simvastatin 10 MG Oral Tablet; Therapy: (Recorded:28Dec2017) to Recorded Vitamin C 500 MG Oral Tablet; Therapy: (Recorded:29Qel0343) to Recorded Allergies No Known Drug Allergies Vitals - from last clinic visit [facility]TP Adult Vital Signs Recorded: 28Dec2017 12:23PM Height 5 ft 7.17 in Weight 248 lb 0.2 oz BMI Calculated 38.65 BSA Calculated 2.22 Systolic 119, LUE, Sitting Diastolic 74, LUE, Sitting Temperature 99 F, Oral Heart Rate 91, L Brachial Artery Pulse Quality Normal, L Brachial Artery O2 Saturation 98, RA Physical Exam - from last clinic visit Constitutional: pleasant appearingandalert. Neck: the appearance of the neck was normal. There was no jugular-venous distention. Pulmonary: no respiratory distressandclear to auscultation bilaterally. Heart: heart rate and rhythm were normalandnormal S1 and S2. Abdomen:. palpable Abdominal mass, tenderness upper & lower right and left quadrant. Genitourinary: Breast exam: the appearance of the breasts was normalandthere were no breast masses noted on palpation. notable raised brown lesions Bilateral under breast, no palpable masses. there was active vaginal bleeding. Vaginal Hemorrhage with mid size blood clots. Musculoskeletal: normal gait. Neurological: cranial nerves 2-12 were intact. Psychiatric: oriented to person, place, and time. Imaging: TVUS 10/26/17: Uterus measuring 14cm. Endometrium appears markedly thickened ([id number]), with a suspected echogenic mass measuring about 4 x 3.8 x 3 cm, with internal vascularity. Complex mass in the right adnexa measuring 8.8 x 8.1 x 6.5 cm with some smolid elements demonstrating internal vascularity. Labs: EMB: Predominance of well- to moderately-differentiated endometrioid adenocarcinoma (FIGO grade 1-2) CA 125: 100 Assessment/Plan Ms. Murphy is a 52 y/o white female with uterine cancer who presents for her scheduled surgery, doing well today. 1. Uterine cancer - Diagnosed on EMB done for AUB - TVUS showing - Plan for Exploratory Laparotomy, Total Abdominal Hysterectomy, Bilateral salpingo- oophorectomy, pelvic and paraaortic lymphadenectomy, appendectomy, omentectomy today 2. HCM - MMG BIRADS 2 in 10/2017 3. HTN - Controlled on Procardia 30mg PO daily Discussed with Dr. Baugh. Leslie Denton MD PGY-2
--- OUTSIDE RECORDS SUMMARY | 2019-02-04 13:26 | XMS REPORT | Summary of Care ---
Author Author [facility] Organization [facility] Address Unknown Phone Unavailable Encounter HQ Sachin(RYLEE) [id number] Date(s): 01/31/18 - 01/31/18 [facility] [address] [place] [address]- Discharge Disposition: Home or Self Care Attending Physician: Chel Baugh MD Referring Physician: Chel Baugh MD Vital Signs Most recent to 1 oldest [Reference Range]: Height 172.72 cm (01/31/18 1:13 PM) Weight 109.091 kg (01/31/18 1:13 PM) Body Mass Index 36.57 m2 (01/31/18 1:13 PM) Problem List Condition Effective Dates Status Health Status Informant Hyperlipidemia(Confi Resolved rmed) Hypertension(Confirm Resolved ed) Uterine Resolved cancer(Confirmed) DM (diabetes Resolved mellitus) type 2, uncontrolled, with ketoacidosis(Confirm ed) Allergies, Adverse Reactions, Alerts Substance Reaction Severity Status NKDA Active Medications No Known Medications Results No data available for this section Immunizations No data available for this section Procedures Procedure Date Related Diagnosis Body Site Status Biopsy of vulva Completed section Completed Hysterectomy Completed Social History Social History Type Response Substance Abuse Use: None. Alcohol Past, Frequency: 1-2 times per year. Previous treatment: None.1 Smoking Status Never smoker; Exposure to Tobacco Smoke None; Cigarette Smoking Last 365 Days No; Reg Smoking Cessation Counseling No entered on: 01/31/18 1very rare Assessment and Plan Extracted from: Title: IR Portacath Placement Author: Keith Garrett MD Date: 01/31/18 PROCEDURE REQUESTED: Portacath placement REQUESTING PHYSICIAN: Camryn Quintero NP (Gynecologic Oncology) HISTORY/INDICATIONS: Endometrial carcinoma, needs emt intermediate venous access for chemotherapy. MEDICAL: Diabetes, hypertension, hypercholesterolemia PROCEDURAL HISTORY: Hysterectomy with bilateral salpingo-oopherectomy, endometrial biopsy, , vulvar biopsy, oral surgery MEDICATIONS: Nifedipine, simvistatin, ferrous sulfate, celecoxib, tramadol, gabapentin, naproxin, acetominophen, docusate-senna, vitamin C ALLERGIES: No known drug allergies PHYSICAL FINDINGS: BP 126/65 P 61 R 16 Alert, oriented, no acute distress Obese, BMI 36.57 SaO2 100% ETCO2 38 Regular rythym IMPRESSION: Endometrial carcinoma, needs assisted venous access for chemotherapy. PLAN: Portacath placement with US/fluoroscopy. Procedure and risks discussed with patient (bleeding, infection, mechanical failure). ASA: II
--- OUTSIDE RECORDS SUMMARY | 2019-02-04 13:26 | XMS REPORT | Summary of Care ---
Author Author [facility] Organization [facility] Address Unknown Phone Unavailable Encounter HQ Sachin(RYLEE) [id number] Date(s): 05/09/18 - 06/07/18 [facility] [address] [place] [address]- [phone] Encounter Diagnosis Malignant neoplasm of endometrium (Final) - 08/13/18 Discharge Disposition: Home or Self Care Attending Physician: Chel Baugh MD Referring Physician: Chel Baugh MD Vital Signs 1 2 3 Most recent to oldest [Reference Range]: 170.8 cm (06/01/18 8:08 AM) 176.9 cm (05/11/18 8:06 AM) 171 cm (05/09/18 7:27 AM) Height 98.3 DegF (06/01/18 8:59 AM) 98.0 DegF (05/11/18 8:36 AM) Temperature Oral [96.4-99.1 DegF] 116/69 mmHg (06/01/18 11:48 AM) 133/74 mmHg (06/01/18 10:48 AM) 128/86 mmHg (06/01/18 8:59 AM) Blood Pressure [90-140/60-90 mmHg] 18 BRMIN (06/01/18 8:59 AM) 18 BRMIN (05/11/18 8:36 AM) Respiratory Rate [14-20 BRMIN] 55 bpm *LOW* (06/01/18 11:48 AM) 65 bpm (06/01/18 8:59 AM) 73 bpm (05/11/18 8:36 AM) Peripheral Pulse Rate [60-100 bpm] 115.67 kg (06/01/18 8:08 AM) 114.76 kg (05/11/18 8:06 AM) 114.3 kg (05/09/18 7:27 AM) Weight 39.65 m2 (06/01/18 8:08 AM) 36.67 m2 (05/11/18 8:06 AM) 39.09 m2 (05/09/18 7:27 AM) Body Mass Index Problem List Condition Effective Dates Status Health Status Informant Hyperlipidemia(Confi Resolved rmed) Hypertension(Confirm Resolved ed) Uterine Resolved cancer(Confirmed) DM (diabetes Resolved mellitus) type 2, uncontrolled, with ketoacidosis(Confirm ed) Allergies, Adverse Reactions, Alerts Substance Reaction Severity Status NKDA Active Medications Benadryl 50 mg, 1 mL, Route: IVP, Drug form: INJ, ONCALL, Start date: 06/01/18 8:00:00 CD T, Duration: 10 hr, Stop date: 06/01/18 17:59:00 CDT Notes: (Same as: Benadryl) Start Date: 06/01/18 Stop Date: 06/01/18 Status: Completed Benadryl 50 mg, 1 mL, Route: IVP, Drug form: INJ, ONCALL, Start date: 05/11/18 8:00:00 CD T, Duration: 10 hr, Stop date: 05/11/18 17:59:00 CDT Notes: (Same as: Benadryl) Start Date: 05/11/18 Stop Date: 05/11/18 Status: Completed CARBOplatin + Sodium Chloride 0.9% IV 175 mL 750 mg, 75 mL, Route: IVPB, Drug form: INJ, ONCALL, Start date: 06/01/18 8:00:00 CDT, Duration: 10 hr, Stop date: 06/01/18 17:59:00 CDT Notes: (Same As: Paraplatin)WASTE: F/P - Black; E - Yellow CHEMOTHERAPY; Infuse entire contents for full dose Start Date: 06/01/18 Stop Date: 06/01/18 Status: Completed CARBOplatin + Sodium Chloride 0.9% IV 180 mL 700 mg, 70 mL, Route: IVPB, Drug form: INJ, ONCALL, Start date: 05/11/18 8:00:00 CDT, Duration: 10 hr, Stop date: 05/11/18 17:59:00 CDT Notes: WASTE: F/P - Black; E - Yellow CHEMOTHERAPY. DO NOT use needle or alumi nium parts. (Same As: Paraplatin). Infuse entire contents for full dose Start Date: 05/11/18 Stop Date: 05/11/18 Status: Completed dexamethasone + Sodium Chloride 0.9% IV 45 mL 20 mg, 5 mL, Route: IVPB, Drug form: INJ, ONCALL, Start date: 06/01/18 8:00:00 C DT, Duration: 10 hr, Stop date: 06/01/18 17:59:00 CDT Start Date: 06/01/18 Stop Date: 06/01/18 Status: Completed dexamethasone + Sodium Chloride 0.9% IV 45 mL 20 mg, 5 mL, Route: IVPB, Drug form: INJ, ONCALL, Start date: 05/11/18 8:00:00 C DT, Duration: 10 hr, Stop date: 05/11/18 17:59:00 CDT Start Date: 05/11/18 Stop Date: 05/11/18 Status: Completed famotidine 20 mg, 2 mL, Route: IVP, Drug form: INJ, ONCALL, Start date: 06/01/18 8:00:00 CD T, Duration: 10 hr, Stop date: 06/01/18 17:59:00 CDT Notes: (Same as: Pepcid)Can be dilute in 5-10cc NS IVP: Slow IV push over at le ast 2 minutes. Start Date: 06/01/18 Stop Date: 06/01/18 Status: Completed famotidine 20 mg, 2 mL, Route: IVP, Drug form: INJ, ONCALL, Start date: 05/11/18 8:00:00 CD T, Duration: 10 hr, Stop date: 05/11/18 17:59:00 CDT Notes: (Same as: Pepcid)Can be dilute in 5-10cc NS IVP: Slow IV push over at le ast 2 minutes. Start Date: 05/11/18 Stop Date: 05/11/18 Status: Completed heparin flush 500 unit, 5 mL, Route: IV, Drug form: SOLN, ONCALL, Start date: 06/01/18 10:00:0 0 CDT, Duration: 10 hr, Stop date: 06/01/18 19:59:00 CDT Notes: (Same as: Heparin Lock Flush) Start Date: 06/01/18 Stop Date: 06/01/18 Status: Completed heparin flush 500 unit, 5 mL, Route: IV, Drug form: SOLN, ONCALL, Start date: 05/11/18 12:00:0 0 CDT, Duration: 10 hr, Stop date: 05/11/18 21:59:00 CDT Notes: (Same as: Heparin Lock Flush) Start Date: 05/11/18 Stop Date: 05/11/18 Status: Completed magnesium sulfate 2 gm, 50 mL, Route: IVPB, Drug form: INJ, ONCALL, Start date: 05/11/18 8:00:00 C DT, Duration: 10 hr, Stop date: 05/11/18 17:59:00 CDT Notes: WASTE: F/P - Sink; E - Municipal Trash Bin Start Date: 05/11/18 Stop Date: 05/11/18 Status: Completed magnesium sulfate 2 gm, 50 mL, Route: IVPB, Drug form: INJ, ONCALL, Start date: 06/01/18 10:00:00 CDT, Duration: 10 hr, Stop date: 06/01/18 19:59:00 CDT Notes: WASTE: F/P - Sink; E - Municipal Trash Bin Start Date: 06/01/18 Stop Date: 06/01/18 Status: Completed Neulasta 6 mg, 0.6 mL, Route: SUB-Q, Drug form: INJ, ONCALL, Start date: 05/12/18 13:00:0 0 CDT, Duration: 1 day, Stop date: 05/13/18 12:59:00 CDT Notes: (Same as: Neulasta) Restricted to Outpatient Start Date: 05/12/18 Stop Date: 06/28/18 Status: Discontinued PACLitaxel + Sodium Chloride 0.9% IV 445 mL 330 mg, 55.01 mL, Route: IV, Drug form: INJ, ONCALL, Start date: 06/01/18 8:00:0 0 CDT, Duration: 10 hr, Stop date: 06/01/18 17:59:00 CDT Notes: Non-Formulary DrugUse non-PVC bag and tubing set for administration. Adm inister with a 0.22 micron in-line filter. CHEMOTHERAPY; Infuse entire contents for full doseWASTE: F/P - Black; E - Yellow (Same as: Taxol) Start Date: 06/01/18 Stop Date: 06/01/18 Status: Completed PACLitaxel + Sodium Chloride 0.9% IV 445 mL 330 mg, 55.01 mL, Route: IV, Drug form: INJ, ONCALL, Start date: 05/11/18 8:00:0 0 CDT, Duration: 10 hr, Stop date: 05/11/18 17:59:00 CDT Notes: Non-Formulary DrugUse non-PVC bag and tubing set for administration. Adm inister with a 0.22 micron in-line filter. CHEMOTHERAPY; Infuse entire contents for full doseWASTE: F/P - Black; E - Yellow (Same as: Taxol) Start Date: 05/11/18 Stop Date: 05/11/18 Status: Completed Sodium Chloride 0.9% IV 250 mL, IV, 30 ml/hr, ONCALL, Start date: 05/11/18 8:00:00 CDT, Duration: 10, 25 0 ml Start Date: 05/11/18 Stop Date: 05/11/18 Status: Completed Sodium Chloride 0.9% IV 250 mL, IV, 30 ml/hr, ONCALL, Start date: 06/01/18 8:00:00 CDT, Duration: 10, 25 0 ml Start Date: 06/01/18 Stop Date: 06/01/18 Status: Completed Zofran 8 mg, 4 mL, Route: IVP, Drug form: INJ, ONCALL, Start date: 05/11/18 8:00:00 CDT , Duration: 1 day, Stop date: 05/12/18 7:59:00 CDT Notes: (Same as: Zofran) MEDICATION WASTE Product Size: 4 mgProduct Was merry: ___ mg Start Date: 05/11/18 Stop Date: 05/11/18 Status: Completed Zofran 8 mg, 4 mL, Route: IVP, Drug form: INJ, ONCALL, Start date: 06/01/18 8:00:00 CDT , Duration: 10 hr, Stop date: 06/01/18 17:59:00 CDT Notes: (Same as: Zofran) MEDICATION WASTE Product Size: 4 mgProduct Was merry: ___ mg Start Date: 06/01/18 Stop Date: 06/01/18 Status: Completed Results ELECTROLYTES Most recent to 1 2 oldest [Reference Range]: Sodium Lvl [135-145 143 mEq/L 143 mEq/L mEq/L] (05/30/18 9:22 AM) (05/09/18 10:02 AM) Potassium Lvl 4.0 mEq/L 3.9 mEq/L [3.5-5.1 mEq/L] (05/30/18 9:22 AM) (05/09/18 10:02 AM) Chloride Lvl [95-109 105 mEq/L 105 mEq/L mEq/L] (05/30/18 9:22 AM) (05/09/18 10:02 AM) CO2 [24-32 mEq/L] 23 mEq/L 27 mEq/L *LOW* (05/09/18 10:02 AM) (05/30/18 9:22 AM) AGAP [10.0-20.0 19.0 mEq/L 14.9 mEq/L mEq/L] (05/30/18 9:22 AM) (05/09/18 10:02 AM) CHEM PANEL Most recent to 1 2 oldest [Reference Range]: Creatinine Lvl 0.67 mg/dL 0.67 mg/dL [0.50-1.40 mg/dL] (05/30/18 9:22 AM) (05/09/18 10:02 AM) eGFR 103 mL/min/1.73m2 1 103 mL/min/1.73m2 2 *NA* *NA* (05/30/18 9:22 AM) (05/09/18 10:02 AM) BUN [7-22 mg/dL] 15 mg/dL 13 mg/dL (05/30/18 9:22 AM) (05/09/18 10:02 AM) B/C Ratio [6-25] 22 19 (05/30/18 9:22 AM) (05/09/18 10:02 AM) Glucose Lvl [70-99 101 mg/dL 100 mg/dL mg/dL] *HI* *HI* (05/30/18 9:22 AM) (05/09/18 10:02 AM) Total Protein 7.3 g/dL 7.1 g/dL [6.4-8.4 g/dL] (05/30/18 9:22 AM) (05/09/18 10:02 AM) Albumin Lvl [3.5-5.0 4.1 g/dL 3.9 g/dL g/dL] (05/30/18 9:22 AM) (05/09/18 10:02 AM) Globulin [2.7-4.2 3.2 g/dL 3.2 g/dL g/dL] (05/30/18 9:22 AM) (05/09/18 10:02 AM) A/G Ratio [0.7-1.6] 1.3 1.2 (05/30/18 9:22 AM) (05/09/18 10:02 AM) Calcium Lvl 9.5 mg/dL 8.8 mg/dL [8.5-10.5 mg/dL] (05/30/18 9:22 AM) (05/09/18 10:02 AM) Magnesium Lvl 1.8 mg/dL 1.7 mg/dL [1.8-2.4 mg/dL] (05/30/18 9:22 AM) *LOW* (05/09/18 10:02 AM) ALT [0-65 unit/L] 74 unit/L 62 unit/L *HI* (05/09/18 10:02 AM) (05/30/18 9:22 AM) AST [0-37 unit/L] 41 unit/L 39 unit/L *HI* *HI* (05/30/18 9:22 AM) (05/09/18 10:02 AM) Alk Phos [39-136 71 unit/L 53 unit/L unit/L] (05/30/18 9:22 AM) (05/09/18 10:02 AM) Bili Total [0.2-1.3 0.4 mg/dL 0.3 mg/dL mg/dL] (05/30/18 9:22 AM) (05/09/18 10:02 AM) 1Result Comment: The eGFR is calculated [...] 2 oldest [Reference Range]: WBC [3.7-10.4 K/CMM] 3.3 K/CMM 3.1 K/CMM *LOW* *LOW* (05/30/18 9:22 AM) (05/09/18 10:02 AM) RBC [4.20-5.40 4.27 M/CMM 4.49 M/CMM M/CMM] (05/30/18 9:22 AM) (05/09/18 10:02 AM) Hgb [12.0-16.0 g/dL] 12.6 g/dL 12.9 g/dL (05/30/18 9:22 AM) (05/09/18 10:02 AM) Hct [36.0-48.0 %] 37.4 % 37.9 % (05/30/18 9:22 AM) (05/09/18 10:02 AM) MCV [80.0-98.0 fL] 87.6 fL 84.5 fL (05/30/18 9:22 AM) (05/09/18 10:02 AM) MCH [27.0-31.0 pg] 29.6 pg 28.7 pg (05/30/18 9:22 AM) (05/09/18 10:02 AM) MCHC [32.0-36.0 33.7 g/dL 33.9 g/dL g/dL] (05/30/18 9:22 AM) (05/09/18 10:02 AM) RDW [11.5-14.5 %] 21.2 % 22.6 % *HI* *HI* (05/30/18 9:22 AM) (05/09/18 10:02 AM) MPV [7.4-10.4 fL] 8.1 fL 7.6 fL (05/30/18 9:22 AM) (05/09/18 10:02 AM) Platelet [133-450 257 K/CMM 159 K/CMM K/CMM] (05/30/18 9:22 AM) (05/09/18 10:02 AM) Segs [45.0-75.0 %] 58.7 % 53.1 % (05/30/18 9:22 AM) (05/09/18 10:02 AM) Lymphocytes 30.0 % 34.0 % [20.0-40.0 %] (05/30/18 9:22 AM) (05/09/18 10:02 AM) Monocytes [2.0-12.0 9.8 % 11.2 % %] (05/30/18 9:22 AM) (05/09/18 10:02 AM) Eosinophils [0.0-4.0 0.8 % 1.1 % %] (05/30/18 9:22 AM) (05/09/18 10:02 AM) Basophils [0.0-1.0 0.7 % 0.6 % %] (05/30/18 9:22 AM) (05/09/18 10:02 AM) Neutrophils # 1.9 K/CMM 1.6 K/CMM [1.5-8.1 K/CMM] (05/30/18 9:22 AM) (05/09/18 10:02 AM) Lymphocytes # 1.0 K/CMM 1.1 K/CMM [1.0-5.5 K/CMM] (05/30/18 9:22 AM) (05/09/18 10:02 AM) Monocytes # [0.0-0.8 0.3 K/CMM 0.3 K/CMM K/CMM] (05/30/18 9:22 AM) (05/09/18 10:02 AM) Anisocyte [None 1+ Seen] *ABN* (05/09/18 10:02 AM) Plt Morph Normal (05/09/18 10:02 AM) TUMOR MARKERS Most recent to 1 2 oldest [Reference Range]: CA 125 [0.0-35.0 2.8 unit/mL 3.2 unit/mL unit/mL] (05/30/18 9:22 AM) (05/09/18 10:02 AM) Immunizations No data available for this [...]
--- OUTSIDE RECORDS SUMMARY | 2019-02-04 13:26 | XMS REPORT | Summary of Care ---
Author Author [facility] Organization [facility] Address Unknown Phone Unavailable Encounter HQ Sachin(RYLEE) [id number] Date(s): 02/14/18 - 03/15/18 [facility] [address] [place] [address]- Discharge Disposition: Home or Self Care Attending Physician: Chel Baugh MD Referring Physician: Chel Baugh MD Vital Signs 1 2 3 Most recent to oldest [Reference Range]: 170 cm (03/08/18 1:34 PM) 170.6 cm (02/15/18 12:41 PM) 170.6 cm (02/14/18 8:53 AM) Height 98.9 DegF (03/10/18 10:35 AM) 98.9 DegF (03/10/18 9:34 AM) 98.7 DegF (02/16/18 7:56 AM) Temperature Oral [96.4-99.1 DegF] 125/80 mmHg (03/10/18 10:35 AM) 125/80 mmHg (03/10/18 9:34 AM) 129/76 mmHg (02/16/18 7:56 AM) Blood Pressure [90-140/60-90 mmHg] 18 BRMIN (03/10/18 10:35 AM) 18 BRMIN (03/10/18 9:34 AM) 18 BRMIN (02/16/18 7:56 AM) Respiratory Rate [14-20 BRMIN] 71 bpm (03/10/18 10:35 AM) 71 bpm (03/10/18 9:34 AM) 76 bpm (02/16/18 7:56 AM) Peripheral Pulse Rate [60-100 bpm] 113 kg (03/08/18 1:34 PM) 111.13 kg (02/15/18 12:41 PM) 111.4 kg (02/14/18 8:53 AM) Weight 39.1 m2 (03/08/18 1:34 PM) 38.18 m2 (02/15/18 12:41 PM) 38.28 m2 (02/14/18 8:53 AM) Body Mass Index Problem List Condition Effective Dates Status Health Status Informant Hyperlipidemia(Confi Resolved rmed) Hypertension(Confirm Resolved ed) Uterine Resolved cancer(Confirmed) DM (diabetes Resolved mellitus) type 2, uncontrolled, with ketoacidosis(Confirm ed) Allergies, Adverse Reactions, Alerts Substance Reaction Severity Status NKDA Active Medications Benadryl 50 mg, 1 mL, Route: IVP, Drug form: INJ, ONCALL, Start date: 03/10/18 9:00:00 CD T, Duration: 10 hr, Stop date: 03/10/18 18:59:00 CDT Notes: (Same as: Benadryl) Start Date: 03/10/18 Stop Date: 03/10/18 Status: Completed Benadryl 50 mg, 1 mL, Route: IVP, Drug form: INJ, ONCALL, Start date: 02/16/18 8:00:00 CD T, Duration: 10 hr, Stop date: 02/16/18 17:59:00 CDT Notes: (Same as: Benadryl) Start Date: 02/16/18 Stop Date: 02/16/18 Status: Completed CARBOplatin + Sodium Chloride 0.9% IV 175 mL 750 mg, 75 mL, Route: IVPB, Drug form: INJ, ONCALL, Start date: 03/10/18 9:00:00 CDT, Duration: 10 hr, Stop date: 03/10/18 18:59:00 CDT Notes: WASTE: F/P - Black; E - Yellow CHEMOTHERAPY. DO NOT use needle or alumi nium parts. (Same As: Paraplatin). Infuse entire contents for full dose Start Date: 03/10/18 Stop Date: 03/10/18 Status: Completed CARBOplatin + Sodium Chloride 0.9% IV 250 mL 670 mg, 67 mL, Route: IV, Drug form: INJ, ONCALL, Start date: 02/16/18 8:00:00 C DT, Duration: 10 hr, Stop date: 02/16/18 17:59:00 CDT Notes: WASTE: F/P - Black; E - Yellow CHEMOTHERAPY. DO NOT use needle or alumi nium parts. (Same As: Paraplatin). Infuse entire contents for full dose Start Date: 02/16/18 Stop Date: 02/16/18 Status: Completed dexamethasone + Sodium Chloride 0.9% IV 45 mL 20 mg, 5 mL, Route: IVPB, Drug form: INJ, ONCALL, Start date: 03/10/18 9:00:00 C DT, Duration: 10 hr, Stop date: 03/10/18 18:59:00 CDT Start Date: 03/10/18 Stop Date: 03/10/18 Status: Completed dexamethasone + Sodium Chloride 0.9% IV 50 mL 20 mg, 5 mL, Route: IVPB, Drug form: INJ, ONCALL, Start date: 02/16/18 8:00:00 C DT, Duration: 10 hr, Stop date: 02/16/18 17:59:00 CDT Start Date: 02/16/18 Stop Date: 02/16/18 Status: Completed famotidine 20 mg, 2 mL, Route: IVP, Drug form: INJ, ONCALL, Start date: 03/10/18 9:00:00 CD T, Duration: 10 hr, Stop date: 03/10/18 18:59:00 CDT Notes: (Same as: Pepcid)Can be dilute in 5-10cc NS IVP: Slow IV push over at le ast 2 minutes. Start Date: 03/10/18 Stop Date: 03/10/18 Status: Completed famotidine 20 mg, 2 mL, Route: IVP, Drug form: INJ, ONCALL, Start date: 02/16/18 8:00:00 CD T, Duration: 10 hr, Stop date: 02/16/18 17:59:00 CDT Notes: (Same as: Pepcid)Can be dilute in 5-10cc NS IVP: Slow IV push over at le ast 2 minutes. Start Date: 02/16/18 Stop Date: 02/16/18 Status: Completed heparin flush 500 unit, 5 mL, Route: IV, Drug form: SOLN, ONCALL, Start date: 03/10/18 10:00:0 0 CDT, Duration: 10 hr, Stop date: 03/10/18 19:59:00 CDT Notes: (Same as: Heparin Lock Flush) Start Date: 03/10/18 Stop Date: 03/10/18 Status: Completed heparin flush 500 unit, 5 mL, Route: IV, Drug form: SOLN, ONCALL, Start date: 02/16/18 8:00:00 CDT, Duration: 10 hr, Stop date: 02/16/18 17:59:00 CDT Notes: (Same as: Heparin Lock Flush) Start Date: 02/16/18 Stop Date: 02/16/18 Status: Completed PACLitaxel + Sodium Chloride 0.9% IV 445 mL 330 mg, Route: IV, Drug form: INJ, ONCALL, Start date: 03/10/18 9:00:00 CDT, Dur ation: 10 hr, Stop date: 03/10/18 18:59:00 CDT Notes: Non-Formulary DrugUse non-PVC bag and tubing set for administration. Adm inister with a 0.22 micron in-line filter. CHEMOTHERAPY; Infuse entire contents for full doseWASTE: F/P - Black; E - Yellow (Same as: Taxol) Start Date: 03/10/18 Stop Date: 03/10/18 Status: Completed PACLitaxel + Sodium Chloride 0.9% IV 500 mL 390 mg, 65.01 mL, Route: IV, Drug form: INJ, ONCALL, Start date: 02/16/18 8:00:0 0 CDT, Duration: 10 hr, Stop date: 02/16/18 17:59:00 CDT Notes: Non-Formulary DrugUse non-PVC bag and tubing set for administration. Adm inister with a 0.22 micron in-line filter. CHEMOTHERAPY; Infuse entire contents for full doseWASTE: F/P - Black; E - Yellow (Same as: Taxol) Start Date: 02/16/18 Stop Date: 02/16/18 Status: Completed Sodium Chloride 0.9% IV 250 mL, IV, 30 ml/hr, ONCALL, Start date: 03/10/18 9:00:00 CDT, Duration: 10, 25 0 ml Start Date: 03/10/18 Stop Date: 03/10/18 Status: Completed Sodium Chloride 0.9% IV 250 mL, IV, 30 ml/hr, ONCALL, Start date: 02/16/18 8:00:00 CDT, Duration: 10, 25 0 ml Start Date: 02/16/18 Stop Date: 02/16/18 Status: Completed Zofran + Sodium Chloride 0.9% IV 46 mL 8 mg, 4 mL, Route: IVPB, Drug form: INJ, ONCALL, Start date: 03/10/18 9:00:00 CD T, Duration: 10 hr, Stop date: 03/10/18 18:59:00 CDT Notes: (Same as: Zofran) Start Date: 03/10/18 Stop Date: 03/10/18 Status: Completed Zofran + Sodium Chloride 0.9% IV 50 mL 8 mg, 4 mL, Route: IVPB, ONCALL, Start date: 02/16/18 8:00:00 CDT, Duration: 10 hr, Stop date: 02/16/18 17:59:00 CDT Notes: (Same as: Zofran) MEDICATION WASTE Product Size: 4 mgProduct Was merry: ___ mg Start Date: 02/16/18 Stop Date: 02/16/18 Status: Completed Results ELECTROLYTES Most recent to 1 2 oldest [Reference Range]: Sodium Lvl [135-145 141 mEq/L 143 mEq/L mEq/L] (03/07/18 9:48 AM) (02/14/18 9:53 AM) Potassium Lvl 4.3 mEq/L 4.0 mEq/L [3.5-5.1 mEq/L] (03/07/18 9:48 AM) (02/14/18 9:53 AM) Chloride Lvl [95-109 105 mEq/L 105 mEq/L mEq/L] (03/07/18 9:48 AM) (02/14/18 9:53 AM) CO2 [24-32 mEq/L] 28 mEq/L 27 mEq/L (03/07/18 9:48 AM) (02/14/18 9:53 AM) AGAP [10.0-20.0 12.3 mEq/L 15.0 mEq/L mEq/L] (03/07/18 9:48 AM) (02/14/18 9:53 AM) CHEM PANEL Most recent to 1 2 oldest [Reference Range]: Creatinine Lvl 0.68 mg/dL 0.80 mg/dL [0.50-1.40 mg/dL] (03/07/18 9:48 AM) (02/14/18 9:53 AM) eGFR 102 mL/min/1.73m2 1 87 mL/min/1.73m2 2 *NA* *NA* (03/07/18 9:48 AM) (02/14/18 9:53 AM) BUN [7-22 mg/dL] 12 mg/dL 14 mg/dL (03/07/18 9:48 AM) (02/14/18 9:53 AM) B/C Ratio [6-25] 18 18 (03/07/18 9:48 AM) (02/14/18 9:53 AM) Glucose Lvl [70-99 110 mg/dL 175 mg/dL mg/dL] *HI* *HI* (03/07/18 9:48 AM) (02/14/18 9:53 AM) Total Protein 7.2 g/dL 7.1 g/dL [6.4-8.4 g/dL] (03/07/18 9:48 AM) (02/14/18 9:53 AM) Albumin Lvl [3.5-5.0 4.0 g/dL 3.8 g/dL g/dL] (03/07/18 9:48 AM) (02/14/18 9:53 AM) Globulin [2.7-4.2 3.2 g/dL 3.3 g/dL g/dL] (03/07/18 9:48 AM) (02/14/18 9:53 AM) A/G Ratio [0.7-1.6] 1.2 1.2 (03/07/18 9:48 AM) (02/14/18 9:53 AM) Calcium Lvl 9.5 mg/dL 9.1 mg/dL [8.5-10.5 mg/dL] (03/07/18 9:48 AM) (02/14/18 9:53 AM) Magnesium Lvl 2.1 mg/dL 1.9 mg/dL [1.8-2.4 mg/dL] (03/07/18 9:48 AM) (02/14/18 9:53 AM) ALT [0-65 unit/L] 37 unit/L 19 unit/L (03/07/18 9:48 AM) (02/14/18 9:53 AM) AST [0-37 unit/L] 22 unit/L 11 unit/L (03/07/18 9:48 AM) (02/14/18 9:53 AM) Alk Phos [39-136 60 unit/L 64 unit/L unit/L] (03/07/18 9:48 AM) (02/14/18 9:53 AM) Bili Total [0.2-1.3 0.2 mg/dL 0.3 mg/dL mg/dL] (03/07/18 9:48 AM) (02/14/18 9:53 AM) 1Result Comment: The eGFR is calculated [...] 2 oldest [Reference Range]: WBC [3.7-10.4 K/CMM] 3.6 K/CMM 5.1 K/CMM *LOW* (02/14/18 9:53 AM) (03/07/18 9:48 AM) RBC [4.20-5.40 4.75 M/CMM 4.50 M/CMM M/CMM] (03/07/18 9:48 AM) (02/14/18 9:53 AM) Hgb [12.0-16.0 g/dL] 12.3 g/dL 11.6 g/dL (03/07/18 9:48 AM) *LOW* (02/14/18 9:53 AM) Hct [36.0-48.0 %] 37.6 % 35.7 % (03/07/18 9:48 AM) *LOW* (02/14/18 9:53 AM) MCV [80.0-98.0 fL] 79.1 fL 79.4 fL *LOW* *LOW* (03/07/18 9:48 AM) (02/14/18 9:53 AM) MCH [27.0-31.0 pg] 25.9 pg 25.7 pg *LOW* *LOW* (03/07/18 9:48 AM) (02/14/18 9:53 AM) MCHC [32.0-36.0 32.7 g/dL 32.4 g/dL g/dL] (03/07/18 9:48 AM) (02/14/18 9:53 AM) RDW [11.5-14.5 %] 17.6 % 16.5 % *HI* *HI* (03/07/18 9:48 AM) (02/14/18 9:53 AM) MPV [7.4-10.4 fL] 8.0 fL 8.6 fL (03/07/18 9:48 AM) (02/14/18 9:53 AM) Platelet [133-450 241 K/CMM 239 K/CMM K/CMM] (03/07/18 9:48 AM) (02/14/18 9:53 AM) Segs [45.0-75.0 %] 53.6 % 70.2 % (03/07/18 9:48 AM) (02/14/18 9:53 AM) Lymphocytes 34.0 % 21.9 % [20.0-40.0 %] (03/07/18 9:48 AM) (02/14/18 9:53 AM) Monocytes [2.0-12.0 10.7 % 4.7 % %] (03/07/18 9:48 AM) (02/14/18 9:53 AM) Eosinophils [0.0-4.0 0.9 % 2.3 % %] (03/07/18 9:48 AM) (02/14/18 9:53 AM) Basophils [0.0-1.0 0.8 % 0.9 % %] (03/07/18 9:48 AM) (02/14/18 9:53 AM) Segs-Bands # 1.9 K/CMM 3.6 K/CMM [1.5-8.1 K/CMM] (03/07/18 9:48 AM) (02/14/18 9:53 AM) Lymphocytes # 1.2 K/CMM 1.1 K/CMM [1.0-5.5 K/CMM] (03/07/18 9:48 AM) (02/14/18 9:53 AM) Monocytes # [0.0-0.8 0.4 K/CMM 0.2 K/CMM K/CMM] (03/07/18 9:48 AM) (02/14/18 9:53 AM) Eosinophils # 0.1 K/CMM [0.0-0.5 K/CMM] (02/14/18 9:53 AM) TUMOR MARKERS Most recent to 1 2 oldest [Reference Range]: CA 125 [0.0-35.0 2.7 unit/mL 5.6 unit/mL unit/mL] (03/07/18 9:48 AM) (02/14/18 9:53 AM) Immunizations No data available for this [...] Reg Smoking Cessation Counseling No entered on: 03/10/18 1very rare Assessment and Plan No data available for this section
[2019-02-04] MEDS ORDERED: DEXAMETHASONE SOD PHOS 10 MG/1 ML VIAL IM ONE (14:30)
[2019-02-04] MEDS ORDERED: HYDROCODONE/APAP 10MG-325MG TAB PO ONE ×2 (14:30→15:00)
[2019-02-04 14:52] LABS: BASOPHILS % 0.4 % (0.0-1.0); EOSINOPHILS # (AUTO) 0.1 (0.0-0.4); EOSINOPHILS % 0.9 % (0.0-6.0); HEMATOCRIT 38.3 % (34.2-44.1); HEMOGLOBIN 12.9 g/dL (12.0-16.0); LYMPHOCYTES # (AUTO) 1.4 (1.0-3.2); LYMPHOCYTES % 26.4 % (18.0-39.1); MEAN CORPUSCULAR HEMOGLOBIN 29.9 pg (28-32); MEAN CORPUSCULAR HGB CONC 33.7 g/dL (31-35); MEAN CORPUSCULAR VOLUME 88.9 fL (81-99); MONOCYTES # (AUTO) 0.4 (0.2-0.8); MONOCYTES % 7.9 % (4.4-11.3); NEUTROPHILS # (AUTO) 3.4 (2.1-6.9); NEUTROPHILS % 64.2 % (38.7-80.0); PLATELET COUNT 153 x10e3/uL (140-360); RED BLOOD COUNT 4.31 x10e6/uL (3.6-5.1); RED CELL DISTRIBUTION WIDTH 13.3 % (11.7-14.4)
--- NOTE | 2019-02-04 15:10 | NUR ---
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
--- NOTE | 2019-02-04 15:15 | Diagnostic Imaging Report ---
WRIST COMPLETE LEFT, HAND 3+ VIEWS LEFT - 3 views each HISTORY: Pain. Left arm pain. Swollen wrist. COMPARISON: None available. FINDINGS: Bones: No acute displaced fracture. Osseous alignment is within normal limits. Diffuse osteopenia. Joints: Degenerative changes in the DIP and PIP joints. Soft tissues: Mild nonspecific soft tissue swelling. IMPRESSION: 1. No acute radiographic abnormality. 2. Mild nonspecific soft tissue swelling. Signed by: Dr. Wander Coker M.D. on 02/04/2019 3:11 PM
[2019-02-04 15:18] LABS: ALANINE AMINOTRANSFERASE 31 IU/L (0-55); ALBUMIN/GLOBULIN RATIO 1.3 (0.8-2.0); ALKALINE PHOSPHATASE 74 IU/L (40-150); ANION GAP 12.7 mmol/L (8-16); BLOOD UREA NITROGEN 11 mg/dL (7-26); BUN/CREATININE RATIO 15 (6-25); CALCIUM 9.8 mg/dL (8.4-10.2); CARBON DIOXIDE 26 mmol/L (22-29); CHLORIDE 107 mmol/L (98-107); CREATININE, SERUM 0.75 mg/dL (0.57-1.11); EST GLOMERULAR FILTRATION RATE > 60 ML/MIN (60-); GLUCOSE 97 mg/dL (74-118); POTASSIUM 3.7 mmol/L (3.5-5.1); SODIUM 142 mmol/L (136-145)
[2019-02-04] MEDS ORDERED: HYDROMORPHONE 2MG/ML 2 MG/ML ML IM ONE (16:00)
[2019-02-04] MEDS ORDERED: ONDANSETRON HCL 4 MG ORAL DISINTEGRATING TAB PO ONE (16:00)
[2019-02-04 16:12] VITALS: BP 127/58
== END 2019-02-04 16:28 | disposition home or self-care (01) ==
LOC: ER 13:22
DX: M13.132 Monoarthritis, not elsewhere classified, left wrist (principal); Z85.42 Personal history of malignant neoplasm of other parts of uterus
CPT/HCPCS: 36415; 73110; 73130; 80053; 84550; 85025; 85379; 93971; 99284; J1100; J1170; Q0162